=== PATIENT | male | born 1945 | race Caucasian/White ===

== ENCOUNTER 2017-09-14 13:49 | Outpatient (CLI) | payer MEDICARE ==
--- NOTE | 2017-09-14 16:16 | SJPRAD ---
TWO VIEW CHEST 09/14/17 COMPARISON: 10/11/16 CLINICAL HISTORY: Acute on chronic combined systolic/diastolic CHF. FINDINGS: There is accentuation of the cardiomediastinal silhouette due to patient rotation although this is g rossly stable. There is mild vascular prominence of each perihilar region. No new consolidation or e vidence of effusion. Chest is otherwise stable. IMPRESSION: Evidence of CHF with mild perihilar vascular edema. POS: [facility]
== END 2017-09-14 13:50 | disposition home or self-care (01) ==
LOC: MWLC RAD 13:49
PROVIDERS: ATTEND Internal Medicine Geriatric Medicine
DX: I50.43 Acute on chronic combined systolic (congestive) and diastolic (congestive) heart failure (principal); R60.0 Localized edema

== ENCOUNTER 2017-10-19 14:15 | Outpatient (CLI) | payer MEDICARE | END 2017-10-19 14:16 | disposition home or self-care (01) | LOC: CP 14:15 | PROVIDERS: ATTEND Internal Medicine Critical Care Medicine | DX: R09.02 Hypoxemia (principal) | CPT/HCPCS: 94060; 94727; 94729 ==

== ENCOUNTER 2018-03-08 11:45 | Inpatient (IN) | payer MEDICARE ==
[2018-03-08] MEDS ORDERED: methylPREDNISolone Sod Succ/PF 125 MG/2 ML VIAL ONE (12:28)
[2018-03-08] MEDS ORDERED: Magnesium Sulfate 2 GM/100 ML BAG ONE (12:28)
[2018-03-08] MEDS ORDERED: Water For Inject, Bacteriostat 30 ML ONE (12:29)
[2018-03-08 12:33] LABS: #Eosinphils 0.1 thou/uL (0.0-0.7); #Lymphocytes 1.5 thou/uL (1.20-3.40); #Monocytes 0.9 thou/uL (0.11-0.59); #Neutrophils 6.1 thou/uL (1.40-6.50); %Basophils 0.1 % (0.0-1.0); %Eosinophils 1.2 % (0.0-10.0); %Lymphocytes 17.1 % (21.0-51.0); %Monocytes 10.9 % (0.0-10.0); %Neutrophils 70.8 % (42.0-75.0); Hemoglobin 16.4 g/dL (14.0-18.0); Mean Corpuscular Hemoglobin 28.7 pg (27.0-31.0); Mean Corpuscular Volume 89.8 fl (80.0-94.0); Mean Platelet Volume 9.9 fL (7.4-10.4); Platelet Count 166 thou/uL (130-400); RBC Distribution Width 16.4 % (11.5-14.5); White Blood Cell (WBC) Count 8.5 thou/uL (4.8-10.8)
[2018-03-08 12:49] LABS: ALT (SGPT) 27 U/L (8-55); AST (SGOT) 30 U/L (5-34); Alkaline Phosphatase 127 U/L (40-150); Anion Gap 16 mmol/L (10-20); BUN (Urea Nitrogen) 49 mg/dL (8.4-25.7); Bilirubin, Total 2.2 mg/dL (0.2-1.2); CK (CPK) 63 U/L (30-200); Calc. Creatinine Clearance 0 mL/min (70-130); Calcium 9.4 mg/dL (7.8-10.44); Carbon Dioxide 24 mmol/L (23-31); Chloride 104 mmol/L (98-107); Estimated GFR-MDRD 56; Globulin 3.5 g/dL (2.4-3.5); Glucose 122 mg/dL (83-110); Potassium 3.9 mmol/L (3.5-5.1); Protein, Total 7.5 g/dL (5.8-8.1); Sodium 140 mmol/L (136-145)
[2018-03-08 12:54] LABS: CKMB 4.3 ng/mL (0-6.6); Troponin I 0.139 ng/mL (< 0.028)
--- NOTE | 2018-03-08 13:10 | RAD ---
PORTABLE CHEST ONE VIEW: Date: 03-08-18 Time: 11:44 a.m. History: Dyspnea. FINDINGS: Comparison made with exam of 01-03-18. Changes of median sternotomy are again seen. The heart size is stable. There is continued elevation o f the right hemidiaphragm. Chronic changes are again seen. No lobar consolidation, pneumothorax, or p leural effusions are seen. IMPRESSION: No radiographic evidence of acute cardiopulmonary process. POS: [facility]
[2018-03-08 14:15] LABS: INR-International Normal Ratio 1.7; PTT 37.6 SEC (22.9-36.1); Prothrombin Time 20.3 SEC (12.0-14.7)
[2018-03-08] MEDS ORDERED: Nitroglycerin 2% Ointment 1 INCH/1 GM Packet ONE (14:15)
[2018-03-08] MEDS ORDERED: Furosemide 100 MG/10 ML VIAL ONE (14:15)
[2018-03-08] MEDS ORDERED: cefTRIAXone\\ROCEPHIN 2 GM VIAL ONE (14:22)
[2018-03-08] MEDS ORDERED: Vancomycin HCl 1.5 GM in Sodium Chloride 0.9% 250 ML 300 ML IVPB SCH (14:30)
[2018-03-08] MEDS ORDERED: Acetaminophen 650 MG Suppository PR PRN (15:32)
[2018-03-08] MEDS ORDERED: Acetaminophen 325 MG TAB PO PRN (15:32)
[2018-03-08] MEDS ORDERED: Bisacodyl 5 MG TAB PO PRN (15:32)
[2018-03-08] MEDS ORDERED: Ondansetron HCl/PF 4 MG/2 ML Vial IVP PRN (15:32)
[2018-03-08] MEDS ORDERED: Pharmacy to MANAGE WARFARIN PO PRN (15:40)
[2018-03-08] MEDS ORDERED: cefTRIAXone\\ROCEPHIN 1 GM in Sodium Chloride 0.9% 100 ML IVPB SCH (15:45)
[2018-03-08] MEDS ORDERED: Vancomycin HCl 1 GM in Premix Bag 1 BAG IVPB SCH (15:45)
[2018-03-08 16:34] LABS: Troponin I 0.131 ng/mL (< 0.028)
[2018-03-08] MEDS ORDERED: Dextrose 5% in Water 1,000 ML IV PRN (16:46)
[2018-03-08] MEDS ORDERED: Dextrose 50% Abboject 50 ML SYRINGE SLOW IVP PRN (16:46)
[2018-03-08] MEDS: Warfarin Sodium 3 MG TAB PO SCH (17:07)
[2018-03-08] MEDS: HumaLOG 300 UNITS/3 ML VIAL SC PRN (17:13)
--- NOTE | 2018-03-08 17:17 | HP ---
PRIMARY CARE PROVIDER: Lisa Mota M.D. CHIEF COMPLAINT: Shortness of breath. HISTORY OF PRESENT ILLNESS: Mr. Roman Patel is a pleasant 72-year-old gentleman who was seen in the emergency room at [facility] on 03/08. He was hospitalized at [facility] in 09/2017 for acute on chronic diastolic congestive heart failure. He reports that following discharge, he continued to have on and off shortness of breath. He reports orthopnea. He reports paroxysmal nocturnal dyspnea. He reports that over the last few weeks, he has had worsening of his chronic shortness of breath. He also reports occasional chest discomfort, the last episode was 1 week ago. He denies any fevers or chills. He reports that he has been having worsening swelling in both lower extremities, with erythema. He reports bilateral lower extremity pain. He denies any fevers or chills. His mother a few weeks ago. He was busy with the arrangements and therefore could not see his primary care physician. Today, he went to see his primary care physician. He was advised to go to emergency room because of shortness of breath. REVIEW OF SYSTEMS: The following complete review of systems was negative, unless otherwise mentioned in the HPI or below: Constitutional: Weight loss or gain, ability to conduct usual activities. Skin: Rash, itching. Eyes: Double vision, pain. ENT/Mouth: Nose bleeding, neck stiffness, pain, tenderness. Cardiovascular: Palpitations, dyspnea on exertion, orthopnea. Respiratory: Shortness of breath, wheezing, cough, hemoptysis, fever or night sweats. Gastrointestinal: Poor appetite, abdominal pain, heartburn, nausea, vomiting, constipation, or diarrhea. Genitourinary: Urgency, frequency, dysuria, nocturia. Musculoskeletal: Pain, swelling. Neurologic/Psychiatric: Anxiety, depression. Allergy/Immunologic: Skin rash, bleeding tendency. PAST MEDICAL HISTORY: Significant for coronary artery disease, status post coronary artery bypass graft, paroxysmal atrial fibrillation on chronic anticoagulation, hypertension, diabetes mellitus type 2, chronic kidney disease stage 2, dyslipidemia, and probable chronic obstructive pulmonary disease. PAST SURGICAL HISTORY: Significant for coronary artery bypass graft x6 vessels and pilonidal cyst removal. SOCIAL HISTORY: He is an ex-smoker. He denies alcohol use or recreational drug use. FAMILY HISTORY: He reports that he has a family history of coronary artery disease, but is unable to recall specific family members. CODE STATUS: I discussed his code status. He is FULL CODE. His is the surrogate decision maker. ALLERGIES: No known drug allergies. CURRENT MEDICATIONS: Include warfarin 6 mg on Monday, Monday, , Monday, and Monday and 4 mg on Monday and Monday; aspirin 81 mg daily; Coenzyme Q10 400 mg daily; Livalo 4 mg daily; Lantus insulin 20 units subcutaneously daily; Anoro Ellipta 1 puff daily; glyburide 5 mg 2 times a day; bumetanide 2 mg daily; and potassium chloride 20 mEq 2 times a day. PHYSICAL EXAMINATION: GENERAL: On examination, Mr. Roman Patel is awake and alert, not in acute distress. VITAL SIGNS: Blood pressure is 134/58, pulse is 64, he is breathing at rate of 17 and saturating 93% on 3 liters of oxygen. He is afebrile. EYES: He has scleral icterus. No conjunctival pallor. ENT: Moist mucosal membranes. No oropharyngeal erythema or exudates. NECK: Supple, nontender, normal range of movement. Trachea is midline. He has jugular venous distention. RESPIRATORY: Accessory muscles of breathing are mildly active. Chest wall movements are symmetric bilaterally. LUNGS: Examination reveals diminished breath sounds at both bases. CARDIOVASCULAR: S1 and S2 are heard, regular. Peripheral pulses palpable. No carotid bruit, no pericardial rub. ABDOMEN: Soft, nontender, bowel sounds heard, no hepatomegaly, no splenomegaly. NEUROLOGIC: Cranial nerves II-XII intact. MUSCULOSKELETAL: Power is 5/5 in all 4 extremities. SKIN: He has bilateral lower extremity edema. He also has erythema of both feet. Temperature appears normal to touch. There is no tenderness. LYMPHATIC: No cervical lymphadenopathy. PSYCHIATRIC: Normal mood, normal affect, patient is oriented to person, place, and time. IMAGING DATA AND LABORATORY DATA: Mr. Roman Patel labs and investigations were reviewed. I reviewed his electrocardiogram, which has artifact, but shows sinus bradycardia with nonspecific intraventricular block, no ST changes to suggest an acute coronary syndrome. I also reviewed his chest x-ray, which does not show any pulmonary infiltrates. He has an unremarkable CBC, INR 1.7, normal electrolytes, elevated blood urea nitrogen of 49, normal creatinine 1.26 , elevated total bilirubin of 2.2, otherwise unremarkable liver function tests, indeterminate troponin I of 0.139 and elevated BNP of 870 ASSESSMENT AND PLAN: Mr. Roman Patel is a pleasant 72-year-old gentleman who was seen at [facility] on 03/08/2018. His problem list includes: 1. Shortness of breath: Most likely secondary to congestive heart failure exacerbation. Patient's last known 2D echocardiogram in 09/2017 showed left ventricular ejection fraction of 55%-60%. Mr. Roman Patel will be admitted to the hospital for presumed exacerbation of diastolic congestive heart failure and treated with diuretics. Cardiology Service will be consulted. He also follows [facility] as outpatient and Pulmonary Service will be consulted to rule out any pulmonary etiologies for his presentation. 2. Coronary artery disease: Monitor on telemetry, trend troponins. He denies any current chest pain. 3. Diabetes mellitus type 2: Continue home medications, start Accu-Cheks and insulin sliding scale. 4. Hypertension: Monitor vital signs, titrate antihypertensives as needed. 5. Atrial fibrillation: Continue anticoagulation. 6. Dyslipidemia: Continue statin. 7. Mr. Roman Sr., uses oxygen at home at 3.5 liters per minute. He reports that he does not use oxygen when he is walking around since it is difficult to ambulate with oxygen tank. This will probably need to be addressed prior to discharge. 8. Mr. Roman Sr., also appears to have evidence of cellulitis over both feet. He has been started on vancomycin and ceftriaxone, which I will continue. Await blood cultures. Many thanks for allowing me to participate in your patient's care. Please feel free to contact me with any questions or concerns. LEVEL OF RISK: High. LEVEL OF COMPLEXITY: High. MTDD
[2018-03-08] MEDS ORDERED: diphenhydrAMINE 50 MG/ML VIAL IVP SCH (17:45)
[2018-03-08] MEDS ORDERED: Famotidine 40 MG/4 ML VIAL SLOW IVP SCH (17:45)
[2018-03-08] MEDS ORDERED: methylPREDNISolone Sod Succ/PF 125 MG/2 ML VIAL IVP SCH (17:45)
--- NOTE | 2018-03-08 21:09 | CON ---
DATE OF CONSULTATION: 03/08/2018 REASON FOR CONSULTATION: Heart failure. PRIMARY SLASHER RUNNER: Mason Clancy MD HISTORY OF PRESENT ILLNESS: Mr. Owens is a pleasant 72-year-old white gentleman, who comes to the ospital for increased shortness of breath. He has a history of COPD and heart failure in the past, m ostly diastolic. He has chronic shortness of breath. He states that his shortness of breath has bee n getting worse, describing episodes of what appears to be orthopnea, cannot lay on his back without getting short-winded. This has been going on for the last week. He came in through the ER, noted th at both of his legs were swelling much more than normal with some pain and redness around them, so he decided to come in. He does not have any fevers or chills. Mother a few weeks ago, so he has been kind of ranging that and not taking care of himself. Otherwise, he did have a little bit of you st pain last week, but currently denies any chest pain, mostly he has shortness of breath. He was ad mitted to the hospital for possible heart failure exacerbation or COPD exacerbation. He was found to have possibly lower extremity cellulitis and he is being given antibiotics for this. On my evaluati on, I walked in, he just received the first part of the infusion of the vancomycin and he was very er ythematous in both hands, around the face, and around the feet. He was scratching all over. He feel s he is getting an allergic reaction, which I probably have to agree with him. Otherwise, he denies any chest pain, tightness, or pressure. His shortness of breath is already getting a little bit bett er. PAST MEDICAL HISTORY: 1. Coronary artery disease, status post bypass grafting x6. 2. Paroxysmal atrial fibrillation. 3. Chronic anticoagulation. 4. Hypertension. 5. Type 2 diabetes. 6. Chronic kidney disease, stage 2. 7. Hyperlipidemia. 8. Chronic obstructive pulmonary disease. PAST SURGICAL HISTORY: 1. CABG x6. 2. Pilonidal cyst removal. OUTPATIENT MEDICATIONS: 1. Warfarin. 2. Aspirin 81 a day. 3. Coenzyme Q10. 4. Livalo 4 mg a day. 5. Lantus. 6. Anoro Ellipta. 7. Glyburide. 8. Bumetanide. 9. Potassium chloride 10 mEq twice a day. ALLERGIES: No known drug allergies. SOCIAL HISTORY: Former smoker. No alcohol, tobacco, or drugs currently. ALLERGIES: No known drug allergies. FAMILY HISTORY: Noncontributory for this setting. REVIEW OF SYSTEMS: A 12-point review of systems was done and is all negative unless stated in the hi story of present illness. PHYSICAL EXAMINATION: VITAL SIGNS: Temperature 98.2, pulse 61, respiratory rate 18, satting 98% on 2 liters, blood pressur e 152/65. GENERAL: Awake, alert, oriented x3, in no distress. He is itching all over and is erythematous. HEENT: Normocephalic, atraumatic. NECK: Supple. LUNGS: Have distant breath sounds. CARDIOVASCULAR: S1, S2. No S3, S4. ABDOMEN: Soft. Positive bowel sounds. EXTREMITIES: 3+ edema with erythema down on the foot, worse in the right foot. SKIN: Warm around the right foot, worse and painful. LABORATORY DATA: Laboratory work was reviewed. CBC was reviewed. Normal white count. Coags were r eviewed and chemistry was reviewed. His INR is not therapeutic, is at 1.7. Troponin was 0.13, 0.13, 0.14, indeterminate range. GFR is 56. BNP was 870. EKG was reviewed. Chest x-ray was reviewed, showed no acute cardiopulmonary issues. ASSESSMENT AND PLAN: 1. Acute on chronic diastolic heart failure. He had most recent echocardiogram in 2016 that showed normal LV function. We will plan on repeating echocardiogram to make sure this is still the case. I agree with IV Lasix for now at current dose of 40 mg twice a day. 2. Possible chronic obstructive pulmonary disease exacerbation per primary team. 3. Lower extremity cellulitis: IV antibiotics per primary team. Might be developing an allergic re action to vancomycin. This also could just be a red man syndrome, which is mostly related to the spe ed of infusion of vancomycin rather than an actual allergic reaction. We will defer to primary team. He will be given a dose of Benadryl and famotidine right now to try to alleviate his itching. Thank you for letting us participate in the care of your patient. Dr. Clancy, his primary cardiolo gist, will follow up in the morning.
[2018-03-09 05:24] LABS: #Lymphocytes 0.5 thou/uL (1.20-3.40); #Monocytes 0.1 thou/uL (0.11-0.59); #Neutrophils 2.4 thou/uL (1.40-6.50); %Basophils 0.2 % (0.0-1.0); %Eosinophils 0.2 % (0.0-10.0); %Lymphocytes 17.6 % (21.0-51.0); %Monocytes 3.6 % (0.0-10.0); %Neutrophils 78.5 % (42.0-75.0); Hemoglobin 15.8 g/dL (14.0-18.0); Mean Corpuscular HGB CONC 31.4 g/dL (32.0-36.0); Mean Corpuscular Volume 89.2 fl (80.0-94.0); Mean Platelet Volume 10.3 fL (7.4-10.4); Platelet Count 154 thou/uL (130-400); RBC Distribution Width 16.5 % (11.5-14.5); Red Blood Cell (RBC) Count 5.64 mill/uL (4.70-6.10)
[2018-03-09 05:37] LABS: ALT (SGPT) 21 U/L (8-55); AST (SGOT) 23 U/L (5-34); Albumin 3.5 g/dL (3.4-4.8); Alkaline Phosphatase 105 U/L (40-150); Anion Gap 18 mmol/L (10-20); BUN (Urea Nitrogen) 44 mg/dL (8.4-25.7); Bilirubin, Direct 1.1 mg/dL (0.1-0.3); Bilirubin, Total 1.8 mg/dL (0.2-1.2); Calc. Creatinine Clearance 85 mL/min (70-130); Carbon Dioxide 15 mmol/L (23-31); Chloride 108 mmol/L (98-107); Estimated GFR-MDRD 57; Glucose 298 mg/dL (83-110); Protein, Total 6.6 g/dL (5.8-8.1); Sodium 137 mmol/L (136-145)
[2018-03-09] MEDS: HumaLOG 300 UNITS/3 ML VIAL SC PRN ×3 (05:47→21:24)
[2018-03-09] MEDS ORDERED: Furosemide 40 MG/4 ML VIAL SLOW IVP SCH (06:00)
[2018-03-09] MEDS ORDERED: Enoxaparin Sodium 40 MG/0.4 ML SYRINGE SC SCH (09:00)
--- NOTE | 2018-03-09 09:53 | CON ---
DATE OF SERVICE: 03/09/2018 CONSULTING PHYSICIAN: Hospitalist group. REASON FOR CONSULTATION: Shortness of breath. HISTORY OF PRESENT ILLNESS: The patient is a 72-year-old male who came to the hospital yesterday wit h increasing shortness of breath over several weeks. He has had an occasional chest pain. I have se en him in the office in the past regarding COPD and he has very mild COPD by spirometry. He is curre ntly using inhaler therapy at home with Anoro Ellipta 1 puff daily. He has had increasing lower extr emity edema. He has had shortness of breath with exertion. He has also had difficulty lying down. PAST MEDICAL HISTORY: 1. Mild chronic obstructive pulmonary disease. 2. Coronary artery disease. 3. Paroxysmal atrial fibrillation. 4. Hypertension. 5. Diabetes mellitus type 2. 6. Chronic kidney disease stage 2. 7. Hyperlipidemia. PAST SURGICAL HISTORY: Coronary bypass grafting surgery and pilonidal cyst removal. ALLERGIES: None. SOCIAL HISTORY: Former smoker, does not use alcohol or illicit drugs. FAMILY MEDICAL HISTORY: Remarkable for coronary disease. ALLERGIES: None. MEDICATIONS PRIOR TO ADMISSION: Warfarin, Anoro Ellipta, Livalo, Lantus insulin, glyburide, potassiu m. REVIEW OF SYSTEMS: Twelve point review of systems otherwise negative. PHYSICAL EXAMINATION: VITAL SIGNS: Temperature 97.4, pulse 58, respirations 20, O2 sat 95% on 4 liters, blood pressure 134 /62. HEENT: Unremarkable. NECK: Without adenopathy or JVD. LUNGS: He has crackles in both bases. No wheezing. CARDIOVASCULAR: S1, S2 regular. ABDOMEN: Soft, nontender. EXTREMITIES: 4+ edema from his knees downward. LABORATORY DATA: White blood cell count 3, hematocrit 50, platelet count 154. INR 1.7. Procalciton in level is 0.12. Sodium 137, potassium 4, chloride 108, CO2 15, BUN 44, creatinine 1.2, glucose 298 . BNP level was elevated. ASSESSMENT: 1. Acute on chronic diastolic heart failure. 2. Very doubtful pneumonia given low procalcitonin level. 3. Underlying mild chronic obstructive pulmonary disease. 4. Doubt that this is lower extremity cellulitis. RECOMMENDATIONS: I would focus on diuresing the patient. I would consider stopping the antibiotics. The steroids can be eliminated and he can be treated strictly with bronchodilators. Thank you for the referral. We will follow.
[2018-03-09 14:23] VITALS: BMI 33.0
[2018-03-09] MEDS ORDERED: cefTRIAXone\\ROCEPHIN 1 GM, Syringe 0.4 ML in Sterile Water 9.6 ML SLOW IVP SCH (15:00)
[2018-03-09] MEDS: Bumetanide 1 MG/4 ML VIAL IVP SCH (15:41)
--- NOTE | 2018-03-09 16:58 | PDOC.PN ---
- Subjective Encounter Start Date: 03/09/18 Encounter Start Time: 08:00 Pt seen for followup re: CHF exacerbation. Reports orthopnea, dyspnea on exertion. - Objective Resuscitation Status: Resuscitation Status FULL:Full Resuscitation MAR Reviewed: Yes Vital Signs & Weight: Vital Signs (12 hours) Temp Pulse Resp BP Pulse Ox 03/09/18 15:48 60 20 118/55 L 92 L 03/09/18 14:22 89 16 03/09/18 11:56 97.4 F L 60 20 111/57 L 93 L 03/09/18 07:39 97.4 F L 58 L 20 95 Weight Admit Weight 250 lb Weight 250 lb I&O: 03/08/18 03/09/18 03/10/18 06:59 06:59 06:59 Intake Total 745 Output Total 1950 Balance -1205 Result Diagrams: 03/09/18 04:30 03/09/18 04:30 Additional Labs: Accuchecks 03/09/18 03/09/18 03/09/18 15:36 11:04 05:41 POC Glucose 380 H 288 H 248 H 03/08/18 03/08/18 20:48 16:53 POC Glucose 209 H 176 H EKG Reviewed by me: Yes (Tele: NSR) Phys Exam - Physical Examination Obese HEENT: moist MMs, sclera anicteric, oral pharynx no lesions, 2+ tonsils Neck: no nodes, supple, full ROM JVD Respiratory: no wheezing, no rhonchi Rajesh crackles Cardiovascular: RRR, no rub Gastrointestinal: soft, non-tender, positive bowel sounds distention Musculoskeletal: edema present Neurological: moves all 4 limbs Psychiatric: normal affect, A&O x 3 Dx/Plan (1) Acute on chronic diastolic CHF (congestive heart failure) Code(s): I50.33 - ACUTE ON CHRONIC DIASTOLIC (CONGESTIVE) HEART FAILURE Status : Acute Comment: Change furosemide to bumetanide, pt reports resistance to furosemide in the past (2) CAD (coronary artery disease) Code(s): I25.10 - ATHSCL HEART DISEASE OF [place] CORONARY ARTERY W/O ANG PCTRS Status: Chronic Comment: stable (3) Atrial fibrillation Code(s): I48.91 - UNSPECIFIED ATRIAL FIBRILLATION Status: Chronic Comment: Pt is in sinus rhythm, warfarin dosing being managed by pharmacy (4) DM2 (diabetes mellitus, type 2) Status: Chronic Comment: continue accuchecks, insulin sliding scale (5) HTN (hypertension) Code(s): I10 - ESSENTIAL (PRIMARY) HYPERTENSION Status: Chronic Comment: Monitor vital signs, titrate antihypertensives as needed (6) Dyslipidemia Code(s): E78.5 - HYPERLIPIDEMIA, UNSPECIFIED Status: Chronic Comment: continue statin (7) Cellulitis Code(s): L03.90 - CELLULITIS, UNSPECIFIED Status: Ruled-out Comment: ruled out, discontinue antibiotics - Plan plan discussed w/ family, out of bed/ambulate * . Review of Systems - Review of Systems Constitutional: negative: fever, chills, sweats, weakness, malaise Respiratory: Hemoptysis. negative: Cough, Shortness of Breath, SOB with Excertion, Pleuritic Pain, Wheezing Cardiovascular: orthopnea, paroxysmal nocturnal dyspnea. negative: chest pain, palpitations, edema, light headedness Gastrointestinal: negative: Nausea, Vomiting, Abdominal Pain, Diarrhea, Constipation, Melena, Hematochezia Skin: Rash. negative: Lesions, Jovani, Bruising Neurological: negative: Weakness, Numbness, Incoordination, Change in Speech, Confusion, Seizures - Medications/Allergies Allergies/Adverse Reactions: Allergies Allergy/AdvReac Type Severity Reaction Status Date / Time No Known Allergies Allergy Verified 10/11/16 16:50 Medications: Current Medications Acetaminophen (Tylenol) 650 mg PO Q4H PRN PRN Reason: Headache/Fever or Pain Acetaminophen (Tylenol) 650 mg OR Q4H PRN PRN Reason: Headache/Fever or Pain Albuterol/Ipratropium (Duoneb) 3 ml NEB [id number] [facility] Last Admin: 03/09/18 14:22 Dose: 3 ml Bisacodyl (Dulcolax) 10 mg PO DAILYPRN PRN PRN Reason: Constipation Bumetanide (Bumex) 1 mg IVP 0600,1400 [facility] Last Admin: 03/09/18 15:41 Dose: 1 mg Dextrose/Water (Dextrose 50%) 25 gm SLOW IVP PRN PRN PRN Reason: Hypoglycemia Glucagon (Glucagon) 1 mg IM PRN PRN PRN Reason: Hypoglycemia Dextrose/Water (D5w) 1,000 mls @ 0 mls/hr IV .Q0M PRN; As Directed PRN Reason: Hypoglycemia Insulin Human Lispro (Humalog) 0 units SC .MILD SLIDING SCALE PRN PRN Reason: Mild Correctional Scale Last Admin: 03/09/18 05:47 Dose: 3 unit Miscellaneous Medication (Pharmacy To Dose) 1 each IVPB PRN PRN PRN Reason: Pharmacy to dose Miscellaneous Medication (Pharmacy To Dose) 1 each PO PRN PRN PRN Reason: . Mometasone Furoate/Formoterol Fumar (Dulera 200 Mcg/5 Mcg Inhaler) 2 puff INH BID-RT [facility] Ondansetron HCl (Zofran) 4 mg IVP Q6H PRN PRN Reason: Nausea/Vomiting Sodium Chloride (Flush - Normal Saline) 10 ml IVF Q12HR [facility] Sodium Chloride (Flush - Normal Saline) 10 ml IVF PRN PRN PRN Reason: Saline Flush Warfarin Sodium (Coumadin) 4 mg PO TuSa@1700 [place] Warfarin Sodium (Coumadin) 6 mg PO SuMoWeThFr@1700 [facility] Last Admin: 03/08/18 17:07 Dose: 6 mg
[2018-03-09] MEDS: Warfarin Sodium 3 MG TAB PO SCH (17:21)
[2018-03-09] MEDS: Mometasone/Formoterol 120 PUFF INHALER INH SCH (19:39)
[2018-03-10 05:09] LABS: #Lymphocytes 0.8 thou/uL (1.20-3.40); #Neutrophils 7.8 thou/uL (1.40-6.50); %Basophils 0.3 % (0.0-1.0); %Eosinophils 0.1 % (0.0-10.0); %Lymphocytes 8.6 % (21.0-51.0); %Monocytes 10.5 % (0.0-10.0); %Neutrophils 80.5 % (42.0-75.0); Hemoglobin 14.7 g/dL (14.0-18.0); Mean Corpuscular HGB CONC 32.5 g/dL (32.0-36.0); Mean Corpuscular Volume 89.2 fl (80.0-94.0); Mean Platelet Volume 9.7 fL (7.4-10.4); Platelet Count 149 thou/uL (130-400); RBC Distribution Width 16.4 % (11.5-14.5); Red Blood Cell (RBC) Count 5.07 mill/uL (4.70-6.10); White Blood Cell (WBC) Count 9.7 thou/uL (4.8-10.8)
[2018-03-10] MEDS: Bumetanide 1 MG/4 ML VIAL IVP SCH ×2 (05:30→15:01)
[2018-03-10 05:42] LABS: Anion Gap 14 mmol/L (10-20); BUN (Urea Nitrogen) 47 mg/dL (8.4-25.7); Calc. Creatinine Clearance 89 mL/min (70-130); Carbon Dioxide 21 mmol/L (23-31); Chloride 107 mmol/L (98-107); Estimated GFR-MDRD 60; Glucose 232 mg/dL (83-110); Potassium 3.5 mmol/L (3.5-5.1); Sodium 138 mmol/L (136-145)
[2018-03-10] MEDS: Mometasone/Formoterol 120 PUFF INHALER INH SCH ×2 (07:37→19:04)
--- NOTE | 2018-03-10 14:07 | PRG ---
DATE OF SERVICE: 03/10/2018 SERVICE: Pulmonary Medicine. INTERVAL HISTORY: The patient is doing fine from a respiratory standpoint. He is making very slow p rogress. His lower extremity swelling is just as bad as it was, but his abdominal swelling is much i mproved. He denies any current chest pain or shortness of breath. PHYSICAL EXAMINATION: VITAL SIGNS: Afebrile, pulse 89, blood pressure 105/52, respirations 18, saturation 94% on room air. GENERAL: The patient is awake, alert, no apparent distress. LUNGS: Decent air entry. Minimal dependent crackles are present, but there does not seem to be any prolonged expiratory phase or wheezing. HEART: Normal rate and regular. ABDOMEN: Soft and nondistended. Bowel sounds positive. MUSCULOSKELETAL: No cyanosis or clubbing. He has got chronic stasis changes of both bilateral lower extremities with erythema. He also has 2-3+ pitting throughout, but it is primarily limited below t he knee. LABORATORY DATA: WBC 9.7, hemoglobin 14.7, and platelets 149,000. INR 1.7. Creatinine 1.19 and rou ghly stable. BUN is gently up trending to 47, bicarbonate 21 and improving. Basic metabolic profile is essentially unremarkable otherwise. Blood cultures x2 are negative. IMAGING: Echocardiogram was a poor study. The right atrium and right ventricular cavity are enlarge d. Left ventricular size is normal. There is diastolic dysfunction present with mild mitral regurgi tation. Left atrium is moderately dilated. ASSESSMENT: 1. Acute hypoxic respiratory failure. 2. Acute on chronic diastolic heart failure. 3. Pulmonary hypertension, possibly multifactorial. 4. Chronic obstructive pulmonary disease without acute exacerbation. PLAN: We will continue diuresing the patient. At this point, after 2 days, I do not see any evidenc e of an infectious thing. As such, antibiotics and steroids will be discontinued. Pulmonary and Cri tical Care will continue to follow along.
--- NOTE | 2018-03-10 14:14 | PDOC.PN ---
- Subjective Encounter Start Date: 03/10/18 Encounter Start Time: 09:40 Pt seen for followup re: CHF exacerbation. Says he urinated a lot yesterday, but not today so far. No fevers or chills. - Objective Resuscitation Status: Resuscitation Status FULL:Full Resuscitation MAR Reviewed: Yes Vital Signs & Weight: Vital Signs (12 hours) Temp Pulse Resp BP BP Pulse Ox 03/10/18 13:23 66 18 03/10/18 11:54 98.4 F 59 L 18 118/58 L 93 L 03/10/18 08:52 97.6 F 59 L 18 105/52 L 94 L 03/10/18 07:37 68 20 03/10/18 07:29 93 L 03/10/18 07:27 68 20 03/10/18 04:00 98.4 F 60 18 149/72 H 93 L Weight Admit Weight 250 lb Weight 249 lb 14.4 oz I&O: 03/09/18 03/10/18 03/11/18 06:59 06:59 06:59 Intake Total 745 360 Output Total 1950 520 Balance -1205 -160 Result Diagrams: 03/10/18 04:40 03/10/18 04:40 Additional Labs: Accuchecks 03/10/18 03/10/18 03/09/18 10:57 05:39 20:23 POC Glucose 195 H 209 H 334 H 03/09/18 03/09/18 03/09/18 17:47 15:36 11:04 POC Glucose 394 H 380 H 288 H 03/09/18 05:41 POC Glucose 248 H EKG Reviewed by me: Yes (Tele: NSR) Phys Exam - Physical Examination Obesity HEENT: PERRLA, moist MMs, oral pharynx no lesions, 2+ tonsils Neck: supple Respiratory: no wheezing, no rhonchi Bibasal crackles Cardiovascular: RRR, no rub Gastrointestinal: soft, non-tender, no distention, positive bowel sounds Musculoskeletal: edema present Neurological: moves all 4 limbs Psychiatric: normal affect, A&O x 3 Dx/Plan (1) Acute on chronic diastolic CHF (congestive heart failure) Code(s): I50.33 - ACUTE ON CHRONIC DIASTOLIC (CONGESTIVE) HEART FAILURE Status : Acute Comment: Continue IV bumetanide (2) CAD (coronary artery disease) Code(s): I25.10 - ATHSCL HEART DISEASE OF [place] CORONARY ARTERY W/O ANG PCTRS Status: Chronic Comment: stable (3) Atrial fibrillation Code(s): I48.91 - UNSPECIFIED ATRIAL FIBRILLATION Status: Chronic Comment: warfarin dosing being managed by pharmacy (4) DM2 (diabetes mellitus, type 2) Status: Chronic Comment: On accuchecks, insulin sliding scale (5) HTN (hypertension) Code(s): I10 - ESSENTIAL (PRIMARY) HYPERTENSION Status: Chronic Comment: titrate antihypertensives as needed (6) Dyslipidemia Code(s): E78.5 - HYPERLIPIDEMIA, UNSPECIFIED Status: Chronic Comment: continue statin - Plan * . Review of Systems - Review of Systems Constitutional: negative: fever, chills, sweats, weakness, malaise Respiratory: SOB with Excertion. negative: Cough, Shortness of Breath, Pleuritic Pain, Wheezing Cardiovascular: orthopnea, edema. negative: chest pain, palpitations, paroxysmal nocturnal dyspnea, light headedness Gastrointestinal: negative: Nausea, Vomiting, Abdominal Pain, Diarrhea, Constipation, Melena, Hematochezia Genitourinary: negative: Dysuria, Frequency, Incontinence, Hematuria, Retention Neurological: negative: Weakness, Numbness, Incoordination, Change in Speech, Confusion, Seizures - Medications/Allergies Allergies/Adverse Reactions: Allergies Allergy/AdvReac Type Severity Reaction Status Date / Time vancomycin Allergy Verified 03/09/18 19:25 Medications: Current Medications Acetaminophen (Tylenol) 650 mg PO Q4H PRN PRN Reason: Headache/Fever or Pain Acetaminophen (Tylenol) 650 mg [place] Q4H PRN PRN Reason: Headache/Fever or Pain Albuterol/Ipratropium (Duoneb) 3 ml NEB [id number] [facility] Last Admin: 03/10/18 13:23 Dose: 3 ml Bisacodyl (Dulcolax) 10 mg PO DAILYPRN PRN PRN Reason: Constipation Bumetanide (Bumex) 1 mg IVP 0600,1400 [facility] Last Admin: 03/10/18 05:30 Dose: 1 mg Dextrose/Water (Dextrose 50%) 25 gm SLOW IVP PRN PRN PRN Reason: Hypoglycemia Glucagon (Glucagon) 1 mg IM PRN PRN PRN Reason: Hypoglycemia Dextrose/Water (D5w) 1,000 mls @ 0 mls/hr IV .Q0M PRN; As Directed PRN Reason: Hypoglycemia Insulin Human Lispro (Humalog) 0 units SC .MILD SLIDING SCALE PRN PRN Reason: Mild Correctional Scale Last Admin: 03/09/18 21:24 Dose: 4 unit Miscellaneous Medication (Pharmacy To Dose) 1 each PO PRN PRN PRN Reason: . Mometasone Furoate/Formoterol Fumar (Dulera 200 Mcg/5 Mcg Inhaler) 2 puff INH BID-RT [facility] Last Admin: 03/10/18 07:37 Dose: 2 puff Ondansetron HCl (Zofran) 4 mg IVP Q6H PRN PRN Reason: Nausea/Vomiting Sodium Chloride (Flush - Normal Saline) 10 ml IVF Q12HR [facility] Last Admin: 03/10/18 09:04 Dose: 10 ml Sodium Chloride (Flush - Normal Saline) 10 ml IVF PRN PRN PRN Reason: Saline Flush Warfarin Sodium (Coumadin) 4 mg PO TuSa@1700 [facility] Warfarin Sodium (Coumadin) 6 mg PO SuMoWeThFr@1700 [facility] Last Admin: 03/09/18 17:21 Dose: 6 mg
[2018-03-10 14:43] LABS: Hemoglobin 15.8 g/dL (14.0-18.0); Platelet Count 147 thou/uL (130-400)
[2018-03-10] MEDS ORDERED: Warfarin Sodium 2 MG TAB PO SCH (17:00)
[2018-03-10] MEDS: HumaLOG 300 UNITS/3 ML VIAL SC PRN (17:17)
[2018-03-11] MEDS: Bumetanide 1 MG/4 ML VIAL IVP SCH ×2 (05:44→15:23)
[2018-03-11 05:46] LABS: #Basophils 0.1 thou/uL (0.0-0.2); #Eosinphils 0.1 thou/uL (0.0-0.7); #Lymphocytes 1.5 thou/uL (1.20-3.40); #Monocytes 1.1 thou/uL (0.11-0.59); #Neutrophils 6.1 thou/uL (1.40-6.50); %Basophils 0.8 % (0.0-1.0); %Eosinophils 1.6 % (0.0-10.0); %Lymphocytes 16.5 % (21.0-51.0); %Neutrophils 69.1 % (42.0-75.0); Hemoglobin 14.8 g/dL (14.0-18.0); Mean Corpuscular HGB CONC 32.3 g/dL (32.0-36.0); Mean Corpuscular Hemoglobin 28.9 pg (27.0-31.0); Mean Corpuscular Volume 89.6 fl (80.0-94.0); Mean Platelet Volume 9.8 fL (7.4-10.4); Platelet Count 147 thou/uL (130-400); RBC Distribution Width 16.5 % (11.5-14.5); Red Blood Cell (RBC) Count 5.13 mill/uL (4.70-6.10); White Blood Cell (WBC) Count 8.9 thou/uL (4.8-10.8)
[2018-03-11 05:52] LABS: INR-International Normal Ratio 2.6; Prothrombin Time 28.8 SEC (12.0-14.7)
[2018-03-11 06:08] LABS: Anion Gap 15 mmol/L (10-20); BUN (Urea Nitrogen) 41 mg/dL (8.4-25.7); Calc. Creatinine Clearance 101 mL/min (70-130); Carbon Dioxide 22 mmol/L (23-31); Chloride 107 mmol/L (98-107); Estimated GFR-MDRD 70; Glucose 162 mg/dL (83-110); Potassium 3.4 mmol/L (3.5-5.1); Sodium 141 mmol/L (136-145)
[2018-03-11] MEDS: Mometasone/Formoterol 120 PUFF INHALER INH SCH ×2 (09:50→19:24)
--- NOTE | 2018-03-11 13:37 | PDOC.PN ---
- Subjective Encounter Start Date: 03/11/18 Encounter Start Time: 08:20 Pt seen for followup re: CHF exacerbation. Says he has not noticed much difference in terms of symptoms. - Objective Resuscitation Status: Resuscitation Status FULL:Full Resuscitation MAR Reviewed: Yes Vital Signs & Weight: Vital Signs (12 hours) Temp Pulse Resp BP BP Pulse Ox 03/11/18 12:09 97.4 F L 104 H 18 119/69 96 03/11/18 09:50 89 12 03/11/18 09:42 94 L 03/11/18 09:37 81 12 03/11/18 08:21 97.3 F L 89 12 92/56 L 93 L 03/11/18 04:00 98.1 F 68 20 123/58 L 95 Weight Admit Weight 250 lb Weight 248 lb I&O: 03/10/18 03/11/18 03/12/18 06:59 06:59 06:59 Intake Total 360 1680 Output Total 520 2600 Balance -160 -920 Result Diagrams: 03/11/18 04:36 03/11/18 04:36 Additional Labs: Accuchecks 03/11/18 03/11/18 03/10/18 10:53 05:22 21:10 POC Glucose 140 H 161 H 168 H 03/10/18 16:16 POC Glucose 262 H EKG Reviewed by me: Yes (Tele: cipriano andrade) Phys Exam - Physical Examination Obesity HEENT: moist MMs, sclera anicteric, oral pharynx no lesions, 2+ tonsils Neck: supple Respiratory: no wheezing, no rhonchi Bibasal crackles Cardiovascular: no rub, irregular S1, S2, irreg Gastrointestinal: soft, non-tender, no distention, positive bowel sounds Musculoskeletal: edema present Neurological: moves all 4 limbs Psychiatric: normal affect Dx/Plan (1) Acute on chronic diastolic CHF (congestive heart failure) Code(s): I50.33 - ACUTE ON CHRONIC DIASTOLIC (CONGESTIVE) HEART FAILURE Status : Acute Comment: Increase Bumex dose to 2 mg in AM and 1 mg in PM (2) CAD (coronary artery disease) Code(s): I25.10 - ATHSCL HEART DISEASE OF [place] CORONARY ARTERY W/O ANG PCTRS Status: Chronic Comment: stable (3) Atrial fibrillation Code(s): I48.91 - UNSPECIFIED ATRIAL FIBRILLATION Status: Chronic Comment: INR is therapeutic, warfarin dosing by pharmacy (4) DM2 (diabetes mellitus, type 2) Status: Chronic Comment: continue accuchecks, insulin sliding scale (5) HTN (hypertension) Code(s): I10 - ESSENTIAL (PRIMARY) HYPERTENSION Status: Chronic Comment: controlled (6) Dyslipidemia Code(s): E78.5 - HYPERLIPIDEMIA, UNSPECIFIED Status: Chronic Comment: continue statin - Plan * . Review of Systems - Review of Systems Constitutional: negative: fever, chills, sweats, weakness, malaise Respiratory: Cough, Dry, SOB with Excertion. negative: Shortness of Breath, Pleuritic Pain, Sputum, Wheezing Cardiovascular: negative: chest pain, palpitations, orthopnea, paroxysmal nocturnal dyspnea, edema, light headedness Genitourinary: negative: Dysuria, Frequency, Incontinence, Hematuria, Retention Skin: negative: Rash, Lesions, Jovani, Bruising - Medications/Allergies Allergies/Adverse Reactions: Allergies Allergy/AdvReac Type Severity Reaction Status Date / Time vancomycin Allergy Verified 03/09/18 19:25 Medications: Current Medications Acetaminophen (Tylenol) 650 mg PO Q4H PRN PRN Reason: Headache/Fever or Pain Acetaminophen (Tylenol) 650 mg [place] Q4H PRN PRN Reason: Headache/Fever or Pain Albuterol/Ipratropium (Duoneb) 3 ml NEB [id number] Last Admin: 03/11/18 09:37 Dose: 3 ml Bisacodyl (Dulcolax) 10 mg PO DAILYPRN PRN PRN Reason: Constipation Bumetanide (Bumex) 1 mg IVP 0600,1400 [facility] Stop: 03/11/18 23:59 Last Admin: 03/11/18 05:44 Dose: 1 mg Bumetanide (Bumex) 1 mg IVP NOW [facility] Stop: 03/11/18 15:45 Bumetanide (Bumex) 2 mg IVP 0600 [facility] Bumetanide (Bumex) 1 mg IVP 1400 [facility] Dextrose/Water (Dextrose 50%) 25 gm SLOW IVP PRN PRN PRN Reason: Hypoglycemia Glucagon (Glucagon) 1 mg IM PRN PRN PRN Reason: Hypoglycemia Dextrose/Water (D5w) 1,000 mls @ 0 mls/hr IV .Q0M PRN; As Directed PRN Reason: Hypoglycemia Insulin Human Lispro (Humalog) 0 units SC .MILD SLIDING SCALE PRN PRN Reason: Mild Correctional Scale Last Admin: 03/10/18 17:17 Dose: 4 unit Miscellaneous Medication (Pharmacy To Dose) 1 each PO PRN PRN PRN Reason: . Mometasone Furoate/Formoterol Fumar (Dulera 200 Mcg/5 Mcg Inhaler) 2 puff INH BID-RT [facility] Last Admin: 03/11/18 09:50 Dose: 2 puff Ondansetron HCl (Zofran) 4 mg IVP Q6H PRN PRN Reason: Nausea/Vomiting Sodium Chloride (Flush - Normal Saline) 10 ml IVF Q12HR [facility] Last Admin: 03/11/18 05:43 Dose: 10 ml Sodium Chloride (Flush - Normal Saline) 10 ml IVF PRN PRN PRN Reason: Saline Flush Warfarin Sodium (Coumadin) 4 mg PO TuSa@1700 [facility] Last Admin: 03/10/18 17:13 Dose: 4 mg Warfarin Sodium (Coumadin) 6 mg PO SuMoWeThFr@1700 [facility] Last Admin: 03/09/18 17:21 Dose: 6 mg
[2018-03-11] MEDS ORDERED: Bumetanide 1 MG/4 ML VIAL IVP SCH (13:45)
[2018-03-11] MEDS: Warfarin Sodium 3 MG TAB PO SCH (17:25)
[2018-03-11] MEDS: Potassium Chloride 20 MEQ TAB PO SCH ×2 (20:28→23:49)
[2018-03-11] MEDS ORDERED: Potassium Chloride 20 MEQ TAB PO SCH (23:30)
[2018-03-12 05:05] LABS: INR-International Normal Ratio 2.5
[2018-03-12] MEDS: Mometasone/Formoterol 120 PUFF INHALER INH SCH ×2 (07:53→19:26)
[2018-03-12] MEDS: Bumetanide 1 MG/4 ML VIAL IVP SCH (08:46)
[2018-03-12] MEDS: HumaLOG 300 UNITS/3 ML VIAL SC PRN ×2 (08:47→17:17)
--- NOTE | 2018-03-12 09:15 | PRG ---
DATE OF SERVICE: 03/12/2018 He still complains of leg swelling. PHYSICAL EXAMINATION: VITAL SIGNS: Temperature 97.3, pulse 66, respirations 18, O2 sat 94%, 24 intake 1680, output 2690. HEENT: Unremarkable. NECK: No JVD. LUNGS: Clear without wheezing or rhonchi. CARDIAC: S1 and S2 regular. ABDOMEN: Soft. MUSCULOSKELETAL: 1+ leg edema. ASSESSMENT: 1. Diastolic congestive heart failure. 2. Underlying chronic obstructive pulmonary disease. PLAN: 1. Continue gentle diuresis as you are doing. 2. Would expect he should be able to go home in a couple of days.
[2018-03-12 10:05] LABS: #Eosinphils 0.1 thou/uL (0.0-0.7); #Lymphocytes 1.4 thou/uL (1.20-3.40); #Monocytes 1.1 thou/uL (0.11-0.59); #Neutrophils 5.6 thou/uL (1.40-6.50); %Basophils 0.5 % (0.0-1.0); %Eosinophils 1.1 % (0.0-10.0); %Lymphocytes 16.6 % (21.0-51.0); %Monocytes 13.8 % (0.0-10.0); %Neutrophils 68.1 % (42.0-75.0); Hemoglobin 15.4 g/dL (14.0-18.0); Mean Corpuscular HGB CONC 32.9 g/dL (32.0-36.0); Mean Corpuscular Hemoglobin 29.6 pg (27.0-31.0); Mean Corpuscular Volume 89.9 fl (80.0-94.0); Mean Platelet Volume 9.5 fL (7.4-10.4); Platelet Count 140 thou/uL (130-400); RBC Distribution Width 16.5 % (11.5-14.5); Red Blood Cell (RBC) Count 5.23 mill/uL (4.70-6.10); White Blood Cell (WBC) Count 8.3 thou/uL (4.8-10.8)
[2018-03-12 10:23] LABS: Anion Gap 13 mmol/L (10-20); BUN (Urea Nitrogen) 42 mg/dL (8.4-25.7); Calc. Creatinine Clearance 84 mL/min (70-130); Calcium 9.3 mg/dL (7.8-10.44); Carbon Dioxide 27 mmol/L (23-31); Chloride 106 mmol/L (98-107); Estimated GFR-MDRD 57; Glucose 217 mg/dL (83-110); Potassium 3.9 mmol/L (3.5-5.1); Sodium 142 mmol/L (136-145)
[2018-03-12] MEDS ORDERED: Bumetanide 1 MG/4 ML VIAL IVP SCH (14:00)
--- NOTE | 2018-03-12 14:56 | PDOC.PN ---
- Subjective Encounter Start Date: 03/12/18 Encounter Start Time: 07:00 Pt seen for followup re: CHF exacerbation. Denies shortness of breath, fevers or chills. - Objective Resuscitation Status: Resuscitation Status FULL:Full Resuscitation MAR Reviewed: Yes Vital Signs & Weight: Vital Signs (12 hours) Temp Pulse Resp BP BP Pulse Ox 03/12/18 13:35 70 16 03/12/18 11:56 96.9 F L 66 18 141/63 H 94 L 03/12/18 08:00 97.3 F L 66 18 94 L 03/12/18 07:57 93 L 03/12/18 07:55 97.3 F L 66 18 132/86 94 L 03/12/18 07:53 61 18 93 L 03/12/18 04:00 98.6 F 62 20 129/61 93 L Weight Admit Weight 250 lb Weight 246 lb 12.8 oz I&O: 03/11/18 03/12/18 03/13/18 06:59 06:59 06:59 Intake Total 1680 600 Output Total 2600 675 Balance -920 -75 Result Diagrams: 03/12/18 09:44 03/12/18 09:44 Additional Labs: Accuchecks 03/12/18 03/12/18 03/11/18 11:28 06:02 20:25 POC Glucose 186 H 200 H 204 H 03/11/18 16:55 POC Glucose 195 H EKG Reviewed by me: Yes (Tele: NSR) Phys Exam - Physical Examination Obese HEENT: moist MMs, oral pharynx no lesions Neck: supple Rajesh crackles Cardiovascular: RRR Gastrointestinal: soft, non-tender Musculoskeletal: edema present Neurological: moves all 4 limbs Psychiatric: normal affect Dx/Plan (1) Acute on chronic diastolic CHF (congestive heart failure) Code(s): I50.33 - ACUTE ON CHRONIC DIASTOLIC (CONGESTIVE) HEART FAILURE Status : Acute Comment: Increased Bumex dose yesterday, pt diuresing well. (2) CAD (coronary artery disease) Code(s): I25.10 - ATHSCL HEART DISEASE OF [place] CORONARY ARTERY W/O ANG PCTRS Status: Chronic Comment: stable (3) Atrial fibrillation Code(s): I48.91 - UNSPECIFIED ATRIAL FIBRILLATION Status: Chronic Comment: INR is therapeutic (4) DM2 (diabetes mellitus, type 2) Status: Chronic Comment: On accuchecks, insulin sliding scale (5) HTN (hypertension) Code(s): I10 - ESSENTIAL (PRIMARY) HYPERTENSION Status: Chronic Comment: controlled (6) Dyslipidemia Code(s): E78.5 - HYPERLIPIDEMIA, UNSPECIFIED Status: Chronic Comment: On statin - Plan out of bed/ambulate * . Likely home 24-48 hrs Review of Systems - Review of Systems Constitutional: negative: fever, chills, sweats, weakness, malaise Respiratory: negative: Cough, Shortness of Breath, SOB with Excertion, Pleuritic Pain, Wheezing Cardiovascular: negative: chest pain, palpitations, orthopnea, paroxysmal nocturnal dyspnea, edema, light headedness - Medications/Allergies Allergies/Adverse Reactions: Allergies Allergy/AdvReac Type Severity Reaction Status Date / Time vancomycin Allergy Verified 03/09/18 19:25 Medications: Current Medications Acetaminophen (Tylenol) 650 mg PO Q4H PRN PRN Reason: Headache/Fever or Pain Last Admin: 03/12/18 05:15 Dose: 650 mg Acetaminophen (Tylenol) 650 mg [place] Q4H PRN PRN Reason: Headache/Fever or Pain Albuterol/Ipratropium (Duoneb) 3 ml NEB [id number] [facility] Last Admin: 03/12/18 13:35 Dose: 3 ml Bisacodyl (Dulcolax) 10 mg PO DAILYPRN PRN PRN Reason: Constipation Bumetanide (Bumex) 2 mg IVP 0600 [facility] Last Admin: 03/12/18 08:46 Dose: 2 mg Bumetanide (Bumex) 1 mg IVP 1400 [facility] Last Admin: 03/12/18 13:52 Dose: 1 mg Dextrose/Water (Dextrose 50%) 25 gm SLOW IVP PRN PRN PRN Reason: Hypoglycemia Glucagon (Glucagon) 1 mg IM PRN PRN PRN Reason: Hypoglycemia Dextrose/Water (D5w) 1,000 mls @ 0 mls/hr IV .Q0M PRN; As Directed PRN Reason: Hypoglycemia Insulin Human Lispro (Humalog) 0 units SC .MILD SLIDING SCALE PRN PRN Reason: Mild Correctional Scale Last Admin: 03/12/18 08:47 Dose: 2 unit Miscellaneous Medication (Pharmacy To Dose) 1 each PO PRN PRN PRN Reason: . Mometasone Furoate/Formoterol Fumar (Dulera 200 Mcg/5 Mcg Inhaler) 2 puff INH BID-RT [facility] Last Admin: 03/12/18 07:53 Dose: 2 puff Ondansetron HCl (Zofran) 4 mg IVP Q6H PRN PRN Reason: Nausea/Vomiting Sodium Chloride (Flush - Normal Saline) 10 ml IVF Q12HR [facility] Last Admin: 03/12/18 08:47 Dose: 10 ml Sodium Chloride (Flush - Normal Saline) 10 ml IVF PRN PRN PRN Reason: Saline Flush Last Admin: 03/11/18 15:22 Dose: 10 ml Warfarin Sodium (Coumadin) 4 mg PO TuSa@1700 [facility] Last Admin: 03/10/18 17:13 Dose: 4 mg Warfarin Sodium (Coumadin) 6 mg PO SuMoWeThFr@1700 [facility] Last Admin: 03/11/18 17:25 Dose: 6 mg
[2018-03-12 15:20] LABS: Hemoglobin 15.7 g/dL (14.0-18.0); Platelet Count 146 thou/uL (130-400)
[2018-03-12] MEDS: Warfarin Sodium 3 MG TAB PO SCH (17:17)
--- NOTE | 2018-03-12 18:59 | PRG ---
DATE OF SERVICE: 03/11/2018 SERVICE: Pulmonary Medicine. INTERVAL HISTORY: The patient is doing fairly well from a respiratory standpoint. He is breathing c omfortably. He is a little frustrated by his lower extremity swelling, not improving dramatically. That being said, his belly is much less swollen. He no longer has the pitting edema around the waist . He denies any current fevers or chills. He is sleeping comfortably. PHYSICAL EXAMINATION: VITAL SIGNS: Afebrile, pulse 78, blood pressure 114/58, respirations 18, saturation 93% on 4 L nasal cannula. General: The patient is awake and alert, in no apparent distress. LUNGS: Decent air entry. There is no prolonged expiratory phase or wheezing present. HEART: Normal rate, regular. ABDOMEN: Soft, nontender, nondistended. Bowel sounds are positive. MUSCULOSKELETAL: No cyanosis or clubbing. He has got 2 to 3+ pitting in the bilateral lower extremi ties. NEUROLOGIC: Grossly nonfocal. LABORATORY DATA: CBC is unremarkable. Creatinine is 1.04 and roughly stable. Potassium is 3.4. [facility] metabolic profile is otherwise unremarkable. Blood cultures x2 are unremarkable. ASSESSMENT 1. Acute hypoxic respiratory failure. 2. Acute on chronic diastolic heart failure. 3. Pulmonary hypertension, multifactorial. 4. Chronic obstructive pulmonary disease without acute exacerbation. PLAN: We will continue gently diuresing the patient as much as his kidneys tolerate. We can conside r dose of metolazone in the morning. Potassium will be replaced today. Pulmonary Critical Care will continue to follow. Dr. Cartagena will resume care in the morning.
[2018-03-13] MEDS: Bumetanide 1 MG/4 ML VIAL IVP SCH (05:06)
[2018-03-13 05:35] LABS: INR-International Normal Ratio 3.1; Prothrombin Time 33.6 SEC (12.0-14.7)
[2018-03-13] MEDS: Mometasone/Formoterol 120 PUFF INHALER INH SCH (08:08)
--- NOTE | 2018-03-13 09:38 | PRG ---
DATE OF SERVICE: 03/13/2018 SUBJECTIVE: Mr. Owens feels better and wants to go home. OBJECTIVE: VITAL SIGNS: On exam, temperature is 96.4, pulse 60, blood pressure 138/65, O2 92% on 4 liters. HEENT: Unremarkable. NECK: No JVD. CHEST: Clear without wheezing. CARDIAC: S1 and S2, regular. ABDOMEN: Soft. EXTREMITIES: No edema. His weight has fallen from an admission weight of 250-243 pounds. ASSESSMENT: 1. Congestive heart failure with exacerbation. 2. Chronic obstructive pulmonary disease. PLAN: Continuing diuresis. The patient should be able to go home soon.
[2018-03-13 11:21] VITALS: BP 145/61; TEMP 97.8
[2018-03-13] MEDS ORDERED: Warfarin Sodium 2 MG TAB PO SCH (17:00)
--- NOTE | 2018-03-13 17:25 | DIS ---
DATE OF ADMISSION: 03/08/2018 DATE OF DISCHARGE: 03/13/2018 ADMITTING DIAGNOSES: Acute congestive heart failure, diastolic dysfunction. DISCHARGE DIAGNOSES: Acute congestive heart failure with diastolic dysfunction/ SECONDARY DIAGNOSES: 1. Acute chronic obstructive pulmonary disease exacerbation. 2. Type 2 diabetes mellitus. 3. Hypertension. 4. Atrial fibrillation. 5. History of dyslipidemia. CONSULTANTS: Involved in the care of Dr. Cartagena from Pulmonary Critical Care. Dr. Luis Moseley from Cardiology, Dr. Puma Blanton from Pulmonary Critical Care. HISTORY OF PRESENT ILLNESS: In brief, this is a 72-year-old white male with a known history of COPD on home oxygen on 4 liters. He presented to the hospital complaining of worsening shortness of breat h and with signs suggestive of congestive heart failure with baseline elevated BNP and pulmonary umesh a. The patient was started on IV Lasix and has worsening swelling in both her lower extremities and Cardiology was also consulted. During this admission, patient had a thorough evaluation with 2D echo which did not show any evidence of wall motion abnormalities, but had an ejection fraction of 55%-60 %. Pulmonary was also involved, as the patient had a COPD which has exacerbation with a cough and gr een sputum production. The patient was started on Dulera steroid inhaler along with his home dose an ticholinergic inhalers. Patient showed good improvement slowly and was back on his home oxygen of 4 liters. After thorough evaluation, the patient was discharged home in stable condition to continue t he steroid inhaler. PHYSICAL EXAMINATION: On day of discharge, VITAL SIGNS: Blood pressures were 145/61, heart rate is 70, respirations 18, saturation 95% on 4 lit ers. GENERAL: The patient is moderately built, moderately nourished. Does not appear to be in acute dist ress at this time. He is alert, oriented x3. HEENT: Atraumatic, normocephalic. PERRLA. Extraocular movements were intact. CARDIOVASCULAR SYSTEM: S1, S2 normal. No murmurs, rubs or gallops. LUNGS: Bilateral air entry was equal. No wheezing, no crackles. ABDOMEN: Soft, nontender. No guarding or rebound tenderness. Bowel sounds normal. DISCHARGE MEDICATIONS: 1. Aspirin 81 mg daily. 2. Bumetanide 2 mg p.o. daily. 3. Famotidine 20 mg p.o. daily. 4. Glyburide 5 mg p.o. t.i.d. 5. Potassium 10 mEq p.o. b.i.d. 6. Warfarin 2 mg p.o. as directed. NEW DISCHARGE MEDICATIONS: Dulera 1 puff inhalation b.i.d. DISCHARGE INSTRUCTIONS: Continue activity as tolerated. Advised to follow up with the primary care physician in 1 week. The patient sees Dr. Mota, need to follow up in 1 week. The patient was also advised to follow up with Pulmonary Critical Care in 1-2 weeks. Also advised to follow up with Cardiology in 2 weeks. I spent 35 minutes with this patient.
[2018-03-14] MEDS ORDERED: Warfarin Sodium 3 MG TAB PO SCH (17:00)
== END 2018-03-13 11:52 | disposition home or self-care (01) | DRG 291 ==
LOC: ERS 11:45 → 2NO 14:04
PROVIDERS: ADMIT Internal Medicine; ATTEND Internal Medicine
DX: I13.0 Hypertensive heart and chronic kidney disease with heart failure and stage 1 through stage 4 chronic kidney disease, or unspecified chronic kidney disease (principal); I50.33 Acute on chronic diastolic (congestive) heart failure; E11.22 Type 2 diabetes mellitus with diabetic chronic kidney disease; I48.0 Paroxysmal atrial fibrillation; L03.116 Cellulitis of left lower limb; L03.115 Cellulitis of right lower limb; Z95.1 Presence of aortocoronary bypass graft; I25.10 Atherosclerotic heart disease of native coronary artery without angina pectoris; N18.2 Chronic kidney disease, stage 2 (mild); E78.5 Hyperlipidemia, unspecified; J44.9 Chronic obstructive pulmonary disease, unspecified; F41.9 Anxiety disorder, unspecified; F32.9 Major depressive disorder, single episode, unspecified; Z79.01 Long term (current) use of anticoagulants; Z79.899 Other long term (current) drug therapy; Z79.82 Long term (current) use of aspirin; Z99.81 Dependence on supplemental oxygen
CPT/HCPCS: 36415; 36416; 71045; 80048; 80053; 80076; 82553; 83735; 83880; 84145; 84484; 85014; 85018; 85025; 85049; 85610; 85730; 87040; 93005; 93306; 93798; 94640; 94664; 96365; 96367; 96375; A4216; J0696; J1200; J1940; J2930; J3370; J3475; J3490; J7050; J7620

== ENCOUNTER 2018-07-13 08:25 | Outpatient (CLI) | payer MEDICARE | END 2018-07-13 08:26 | disposition home or self-care (01) | LOC: BICULT 08:25 | PROVIDERS: ATTEND Internal Medicine Geriatric Medicine | DX: Z13.6 Encounter for screening for cardiovascular disorders (principal); R18.8 Other ascites | CPT/HCPCS: 76775 ==

== ENCOUNTER 2018-08-04 11:01 | Inpatient (IN) | payer MEDICARE ==
[2018-08-04] MEDS ORDERED: Magnesium Sulfate 2 GM/100 ML BAG ONE (11:23)
[2018-08-04] MEDS ORDERED: Dexamethasone 10 MG/ML VIAL ONE (11:23)
[2018-08-04] MEDS ORDERED: Albuterol Sulfate 2.5 mg/0.5 ml Neb ONE ×2 (11:24)
[2018-08-04 11:31] LABS: #Eosinphils 0.1 thou/uL (0.0-0.7); #Lymphocytes 1.5 thou/uL (1.20-3.40); #Monocytes 1.1 thou/uL (0.11-0.59); #Neutrophils 4.9 thou/uL (1.40-6.50); %Basophils 0.2 % (0.0-1.0); %Eosinophils 1.6 % (0.0-10.0); %Lymphocytes 19.6 % (21.0-51.0); %Monocytes 14.7 % (0.0-10.0); %Neutrophils 63.9 % (42.0-75.0); Hemoglobin 13.7 g/dL (14.0-18.0); Mean Corpuscular HGB CONC 30.1 g/dL (32.0-36.0); Mean Corpuscular Hemoglobin 25.1 pg (27.0-31.0); Mean Corpuscular Volume 83.2 fL (78.0-98.0); Mean Platelet Volume 10.2 fL (7.4-10.4); Platelet Count 244 thou/uL (130-400); RBC Distribution Width 19.2 % (11.5-14.5); Red Blood Cell (RBC) Count 5.48 mill/uL (4.70-6.10); White Blood Cell (WBC) Count 7.6 thou/uL (4.8-10.8)
[2018-08-04 11:40] LABS: INR-International Normal Ratio 3.8; PTT 48.8 SEC (22.9-36.1); Prothrombin Time 37.7 SEC (12.0-14.7)
[2018-08-04 11:50] LABS: Actual Bicarbonate (HCO3a) 20.7 mEq/L (22-28); Analyzer IN Cardio ER; Base Excess (BEa) -1.9 mEq/L (-2.0 to +3.0); CO2 Tension 29.5 mmHg (35.0-45.0); Calcium, Ionized 1.14 mmol/L (1.12-1.30); Carboxyhemoglobin (COHb) 1.4 gm% (0.0-3.0); Hemoglobin (Hb) 14.1 g/dL (14.0-18.0); Potassium - ABG Lab 3.87 mmol/L (3.70-5.30); pH, Arterial 7.46 (7.35-7.45)
[2018-08-04 11:55] LABS: ALT (SGPT) 18 U/L (8-55); AST (SGOT) 38 U/L (5-34); Albumin 3.6 g/dL (3.4-4.8); Alkaline Phosphatase 131 U/L (40-150); Anion Gap 16 mmol/L (10-20); BUN (Urea Nitrogen) 42 mg/dL (8.4-25.7); Bilirubin, Total 2.2 mg/dL (0.2-1.2); CK (CPK) 65 U/L (30-200); CKMB 2.3 ng/mL (0-6.6); Calc. Creatinine Clearance 0 mL/min (70-130); Carbon Dioxide 20 mmol/L (23-31); Chloride 107 mmol/L (98-107); Estimated GFR-MDRD 48; Globulin 3.6 g/dL (2.4-3.5); Glucose 188 mg/dL (83-110); Lipase 22 U/L (8-78); Potassium 4.5 mmol/L (3.5-5.1); Protein, Total 7.2 g/dL (5.8-8.1); Sodium 138 mmol/L (136-145); Troponin I 0.152 ng/mL (< 0.028)
[2018-08-04 11:55] LABS: O2 Tension (PaO2) 49.2 mmHg (> 70.0)
[2018-08-04 11:56] LABS: ALV-art Gradient 142.085 (0-20)
--- NOTE | 2018-08-04 12:41 | RAD ---
SINGLE VIEW OF THE CHEST: COMPARISON: 03/08/18. HISTORY: Shortness of breath and mild cough; dyspnea. FINDINGS: A single view of the chest shows an enlarged cardiomediastinal silhouette. The patient is status pos t sternotomy. There are increased interstitial lung markings. There is no evidence of consolidation , mass, or pleural effusion. IMPRESSION: No evidence of acute cardiopulmonary disease. POS: [facility]
--- NOTE | 2018-08-04 13:11 | CT ---
Ct of the abdomen and pelvis without contrast: COMPARISON: 03/06/15. HISTORY: Shortness of breath; abdominal pain and abdominal distention. TECHNIQUE: Multiple contiguous axial images were obtained in a CT of the abdomen and pelvis without contrast. C oronal reformats were performed. FINDINGS: There is a moderate amount of ascites. The spleen is normal in size. There is hyperdense material i n the dependent gallbladder which may represent gallstones. No biliary dilatation is seen. The kidneys, adrenal glands, and pancreas are unremarkable, although evaluation was limited on this n oncontrast examination. The large and small bowel are unremarkable. No abdominal or pelvic lymphadenopathy are seen. Athero sclerotic calcifications are seen in the aorta. Degenerative changes are seen in the spine. Diffuse soft tissue anasarca is seen. There are trace b ilateral pleural effusions. IMPRESSION: 1. Moderate ascites. 2. Hyperdense material in the gallbladder likely represents gallstones. POS: [facility]
[2018-08-04 13:24] LABS: Bilirubin Negative (Negative); Blood, Urine Negative (Negative); Clarity CLEAR (Clear); Glucose, Urine (Dipstick) Negative (Negative); Leukocyte Trace (Negative); Nitrite Negative (Negative); Protein, Urine (Dipstick) 30 mg/dL (Neg-Trace); Specific Gravity, Urine 1.014 (1.002-1.036)
[2018-08-04 13:26] LABS: Bacteria/HPF None Seen HPF (None Seen); Hyaline Casts/LPF 0-3 HYALINE CAST LPF (0-3 Hyaline); Pathc Cast-AUWi Flag 0.43 (0-2.49); RBC/HPF 0-3 HPF (0-3); Squamous Epithelial 0-3 HPF (0-3); WBC/HPF 0-3 HPF (0-3)
--- NOTE | 2018-08-04 14:56 | HP ---
PRIMARY CARE PHYSICIAN: Dr. Svetlana Gonzalez. REASON FOR ADMISSION: Acute on chronic diastolic congestive heart failure exacerbation, acute on chr onic hypoxic respiratory failure, anasarca. HISTORY OF PRESENT ILLNESS: A 73-year-old male who has underlying history of right-sided heart failu re. His echo in 02/2018 showed pretty much normal EF, but he has severely enlarged right ventricle a nd moderate tricuspid regurgitation. He has underlying diastolic heart failure. His last admission was in end of February. He came to emergency room today with increasing shortness of breath, increasing lower extremity edema and increasing abdominal distention. This is going on for the last one month. The patient was ignoring to come to hospital. The patient reports that he is trying to restrict hi mself with liquid intake, but his edema is gradually getting worse. He is using elastic stockings th at help, but during end of the day, his swelling is getting worse. He is able to lie down flat, but he has to sleep in the right lateral position to get better sleep lately. Lately, he is getting tire d very quickly even after walking a few steps, he gets out of breath and he gets fatigued and he has to rest. For last 2-3 weeks, he also noticed increasing abdominal distention. He denies any dizzine ss or syncope. Last night, he had vague chest discomfort which he attributes to his discomfort from abdominal distention. He took nitroglycerin that did not help significantly his chest discomfort. The patient saw his primary care physician on Monday and she told him to go to emergency room, but th e patient did not want to come yesterday and that is why he came to Emergency Room today. In the emergency room, patient had significant anasarca. He had chest x-ray which was unremarkable, but CT abdomen and pelvis showed ascites. The patient had a bad reaction with Lasix and that is why he refused to the Lasix in the emergency room. Patient is being admitted to telemetry floor for more diuresis. REVIEW OF SYSTEMS: The following complete review of systems was negative, unless otherwise mentioned in the HPI or below: Constitutional: Weight loss or gain, ability to conduct usual activities. Skin: Rash, itching. Eyes: Double vision, pain. ENT/Mouth: Nose bleeding, neck stiffness, pain, tenderness. Cardiovascular: Palpitations, dyspnea on exertion, orthopnea. Respiratory: Shortness of breath, wheezing, cough, hemoptysis, fever or night sweats. Gastrointestinal: Poor appetite, abdominal pain, heartburn, nausea, vomiting, constipation, or diarr hea. Genitourinary: Urgency, frequency, dysuria, nocturia. Musculoskeletal: Pain, swelling. Neurologic/Psychiatric: Anxiety, depression. Allergy/Immunologic: Skin rash, bleeding tendency. Please see my HPI for pertinent positive and negative. All other review of systems reviewed and nega tive except as mentioned in the HPI. PAST MEDICAL HISTORY: Coronary artery disease required CABG in 2010, paroxysmal atrial fibrillation on chronic anticoagulation, hypertension, diabetes type 2, CKD stage 2, dyslipidemia, COPD, chronic d iastolic heart failure, predominantly right-sided. PAST SURGICAL HISTORY: CABG x6 vessels, pilonidal cyst removal. PAST PSYCHIATRIC HISTORY: Reviewed and negative. SOCIAL HISTORY: Patient lives at home. He is a former smoker. He quit smoking in 2010. He is an e x-alcoholic and he quit drinking also several years ago. He denies current use of alcohol or smoking . He denies any other illicit drug abuse. He lives at home with his family. FAMILY HISTORY: Positive for coronary artery disease among several family members. ALLERGIES: No known drug allergy. CURRENT HOME MEDICATIONS: Warfarin 6 mg Monday, Monday, , Monday, Monday and 4 mg on , Saturdays; aspirin 81 mg daily; coenzyme Q10 400 mg p.o. daily; Livalo 4 mg p.o. daily; Lantus 20 units subcu in the evening; Anoro Ellipta 1 puff inhalation daily; glyburide 5 mg p.o. b.i.d.; Bum ex 2 mg p.o. daily and potassium chloride 20 mEq p.o. b.i.d. EMERGENCY ROOM COURSE: The patient received aspirin 325 mg, DuoNeb therapy, albuterol nebulization a nd magnesium sulfate. PHYSICAL EXAMINATION: VITAL SIGNS: Currently, blood pressure 128/70, saturation 85% on room air, pulse 71, respiratory rat e 24, temperature 97.5, saturation 85% on room air, weight 124.3 kilograms. GENERAL: Patient is currently alert, awake, no obvious acute distress. HEAD: Normocephalic, atraumatic. EYES: Pupils round, reactive to light. Extraocular muscle intact. ENT: Oropharynx within normal limits. Moist mucous membranes. No oral lesion, no pharyngeal erythe ma, no exudate. NECK: Elevated JVD, no thyromegaly, no carotid bruit. LUNGS: Grossly clear without any obvious rhonchi or rales. CARDIAC: S1, S2 regular. Loud P2 heard. Soft systolic murmur noted at parasternally. Gallop prese nt. ABDOMEN: Distended, ascites present, no organomegaly, no mass, no Riojas's sign, no suprapubic disco mfort. BACK: Examination unremarkable, no CVA tenderness. EXTREMITIES: Upper extremity passive movements of all joints are normal. Lower extremity; bilateral +4 pitting edema up to thigh level. Good distal pulsation. Swelling is more on the right than left . NEUROLOGIC: Nonfocal examination. SKIN: No skin rash. HEMATOLOGICAL SYSTEM: No lymphadenopathy. IMAGING DATA AND SIGNIFICANT LABORATORY DATA: EKG showing right bundle branch block pattern, normal sinus rhythm. CT of the abdomen and pelvis, moderate ascites, gallstones, no cholecystitis, diffuse anasarca. Chest x-ray with no acute cardiopulmonary process. CBC: WBC 7.6, hemoglobin 13.7, platel et was 244. INR 3.8. ABG: pH 7.46, CO2 29.5, O2 49.2, saturation 84.7, bicarbonate 20.7. BMP: So dium 138, potassium 4.5, chloride 107, carbon dioxide 20, BUN 42, creatinine 1.45, glucose 188, calci um 9.0, lactic acid 2.2. LFT: AST 38, ALT 18, alkaline phosphatase 131, albumin 3.6, lipase 22, CK- MB 2.3, troponin I 0.152. BNP 1062. Urinalysis; leukocyte esterase trace. ASSESSMENT AND PLAN/IMPRESSION: 1. Acute on chronic diastolic congestive heart failure, stage C, predominantly right-sided heart jessica lure. Patient has elevated JVD, gallop, significant edema in lower extremity with ascites. The marni ent has anasarca, Most recent echocardiography in 02/2018 showed dilated right ventricle with normal EF. At this point, Cardiology group will be consulted. Nephrology will be consulted as per patient request because of diuretic therapy management. The patient is not tolerating Lasix in the past and that is why we will try with Bumex 1 mg IV b.i.d., fluid restriction 1200 mL per day. We will monit or electrolytes and replace accordingly. We will monitor renal function, daily weight and input outp ut monitoring. 2. Acute on chronic respiratory failure with hypoxia. Patient has home oxygen therapy for his chron ic respiratory failure. He was hypoxic upon arrival. We will continue with oxygen to keep saturatio n above 92%. We will continue the DuoNeb therapy p.r.n. basis. His hypoxic respiratory failure is r elated with right-sided heart failure and possibly underlying chronic obstructive pulmonary disease. 3. Chronic obstructive pulmonary disease. Currently, does not appear to be in chronic obstructive p ulmonary disease flare-up. More predominantly, patient's symptoms are explained by anasarca, heart f ailure and volume overload status. Still we will continue his home medication with Anoro Ellipta inh alation daily if we have. Otherwise we will use Dulera 2 puffs inhalation b.i.d. and DuoNeb q.6 hour ly p.r.n. basis. 4. Ascites and lower extremity edema, all consistent with anasarca related with the heart failure. The patient will need aggressive diuresis and he will require several days in hospital to monitor jacky ctrolytes and renal function. 5. Diabetes type 2. We will continue with Levemir insulin 20 units subcu daily and Humalog insulin as per sliding scale per protocol. Diabetic diet will be given, glyburide 5 mg p.o. b.i.d. 6. Dyslipidemia. Continue Livalo 4 mg p.o. at bedtime. 7. Paroxysmal atrial fibrillation. Currently, INR is supratherapeutic and that is why we will hold on warfarin therapy today and we will reduce dose of warfarin to 4 mg p.o. daily from tomorrow depend ing upon PT/INR. We will monitor PT/INR on daily basis. 9. Cholelithiasis, asymptomatic. At this point does not need any further evaluation. 10. Elevated troponin. We will do serial cardiac enzymes x3. We will continue aspirin 81 mg p.o. d aily. 11. Chronic kidney disease stage 3. We will monitor renal function. Nephrology consulted. Disposition plan based on clinical course. Code status is FULL CODE. The patient's daughter is surr ogate decision maker. Disposition plan based on clinical course. We are expecting patient's stay in hospital more than 2 midnights. [facility].
[2018-08-04] MEDS ORDERED: Mag-Al 1200 mg/1200 mg/30 ML UDCUP PO PRN (15:02)
[2018-08-04] MEDS ORDERED: Artificial Tears 18 DROP/0.9 ML EA EYE PRN (15:02)
[2018-08-04] MEDS ORDERED: Chloraseptic Spray 180 ml Bottle PO PRN (15:02)
[2018-08-04] MEDS ORDERED: Sodium Chloride 0.65% Nasal 44 ML BOT EA NARE PRN (15:02)
[2018-08-04] MEDS ORDERED: Loratadine 10 MG TAB PO PRN (15:02)
[2018-08-04] MEDS ORDERED: Ondansetron ODT 4 MG TAB PO PRN (15:02)
[2018-08-04] MEDS ORDERED: hydrALAZINE 20 MG/ML VIAL SLOW IVP PRN (15:02)
[2018-08-04] MEDS ORDERED: HYDROcodone/Acetaminophen 5/325 mg Tablet PO PRN (15:02)
[2018-08-04] MEDS ORDERED: Eucerin (Mineral Oil/Petrolatum,White) 30 gm Jar TOP PRN (15:02)
[2018-08-04] MEDS ORDERED: Ondansetron HCl/PF 4 MG/2 ML Vial IVP PRN (15:02)
[2018-08-04] MEDS ORDERED: Dextrose 5% in Water 1,000 ML IV PRN (15:02)
[2018-08-04] MEDS ORDERED: Diabetic Tussin 200 MG/10 ML UDCUP PO PRN (15:02)
[2018-08-04] MEDS ORDERED: Loperamide HCl 2 MG CAP PO PRN (15:02)
[2018-08-04] MEDS ORDERED: Zolpidem Tartrate 5 MG TAB PO PRN (15:02)
[2018-08-04] MEDS ORDERED: Milk Of Magnesia 30 ML UDCUP PO PRN (15:02)
[2018-08-04] MEDS ORDERED: Acetaminophen 325 MG TAB PO PRN (15:02)
[2018-08-04] MEDS ORDERED: Senokot 8.6 MG TAB PO PRN (15:02)
[2018-08-04] MEDS ORDERED: Dextrose 50% Abboject 50 ML SYRINGE SLOW IVP PRN (15:02)
[2018-08-04 15:06] LABS: Troponin I 0.165 ng/mL (< 0.028)
--- NOTE | 2018-08-04 17:22 | CON ---
DATE OF CONSULTATION: 08/04/2018 REASON FOR CONSULTATION: Acute on chronic diastolic heart failure. HISTORY OF PRESENT ILLNESS: Mr. Owens is a pleasant 73-year-old gentleman with history of coronary artery disease, status post bypass surgery. He has a history of diastolic dysfunction and likely RV dysfunction. He has a previous history of tobacco abuse. He underwent bypass surgery in 2010. He r ecently states he had increased lower extremity edema in addition to shortness of breath and 20-pound weight gain over the last several weeks. He did have one episode of chest pain. No other ameliorat ing, exacerbating, or precipitating factors present. PAST MEDICAL HISTORY: CAD, status post bypass surgery; atrial fibrillation; hypertension; diabetes m ellitus; chronic kidney disease; COPD. SOCIAL HISTORY: Previous tobacco abuse. No current alcohol use. He is currently . FAMILY HISTORY: Positive for CAD. ALLERGIES: None. HOME MEDICATIONS: Include Coumadin, aspirin, Coenzyme Q, Lantus, Ellipta, glyburide, Bumex, potassiu m. REVIEW OF SYSTEMS: Ten-point review of systems is reviewed and as above, otherwise negative. PHYSICAL EXAMINATION: GENERAL: Patient is a pleasant male who is in no acute distress. The patient appears his stated age . VITAL SIGNS: Blood pressure 117/57, pulse 78, temperature afebrile. NEUROLOGIC: The patient is alert and oriented times 3 with no focal neurologic deficits. HEENT: Sclerae without icterus. Mouth has moist mucous membranes with normal pallor. NECK: No JVD. Carotid upstroke brisk. No bruits bilaterally. LUNGS: Crackles noted bilaterally. BACK: No scoliosis or kyphosis. CARDIAC: Regular rate and rhythm with normal S1 and S2. No S3 or S4 noted. No significant rubs, mu rmurs, thrills, or gallops noted throughout the precordium. PMI is not displaced. There is no pamella ternal heave. ABDOMEN: Positive ascites. EXTREMITIES: 2-3+ pitting edema. SKIN: No gross abnormalities. PERTINENT LABORATORY DATA: Hemoglobin 13.7. Creatinine 1.45 with a GFR of 48. Peak troponin 0.165, BNP of 1062. IMPRESSION: 1. Heart failure, likely diastolic and right-sided. 2. Coronary artery disease. 3. Status post bypass surgery. RECOMMENDATIONS: Consider repeating echo. He is currently on Bumex at 1 mg IV b.i.d. May also cons ider Zaroxolyn if minimal response. Network Lead the patient on a diet intake. We will also add low dose beta zia therapy.
[2018-08-04 17:50] LABS: Troponin I 0.161 ng/mL (< 0.028)
[2018-08-04] MEDS: glyBURIDE 5 MG TAB PO SCH (17:52)
[2018-08-04] MEDS: Mometasone/Formoterol 120 PUFF INHALER INH SCH (18:56)
[2018-08-04] MEDS ORDERED: Furosemide 40 MG/4 ML VIAL SLOW IVP SCH (21:00)
[2018-08-04] MEDS: Insulin Glargine 20 UNITS in Pre-Filled Syringe 1 EACH SC SCH ×2 (21:10→21:13)
[2018-08-04] MEDS ORDERED: Metolazone 5 MG TAB PO SCH (22:00)
--- NOTE | 2018-08-04 23:18 | CON ---
DATE OF CONSULTATION: 08/04/2018 CONSULTING PHYSICIAN: Vani Moseley MD REQUESTING PHYSICIAN: Richelle Love MD REASON FOR CONSULTATION: Anasarca. IMPRESSION: 1. Anasarca. This is likely in the context of right-sided heart failure; however, cannot completely rule out a nephrotic syndrome picture. 2. Hypervolemia with estimated accumulated fluid weight of more than 30 pounds. 3. Respiratory distress in the context of the problem listed above. 4. Chronic kidney disease, baseline chronic kidney disease 3. PLAN: 1. Aggressive diuresis with parenteral Bumex in order to circumvent the absorption limitation due to congestive gastroenteropathy to oral medications. 2. We will augment this Bumex with Zaroxolyn. 3. Monitor the electrolytes and the kidney function as the patient begins to undergo diuresis. 4. Renally dose all medications and avoid potentially nephrotoxic agents. 5. Further management will be dependent on the clinical course. Meanwhile, the patient to be on low -salt diet. The degree of proteinuria will be estimated vis-a-vis a possibility of nephrotic syndrom e picture. HISTORY OF PRESENT ILLNESS: History is that of 73-year-old gentleman known to my chronic kidney dise ase clinic when the patient did present because of significant fluid overload. The patient has had a bad experience with furosemide and at the office, decision was taken to place this patient on Bumex with p.r.n. Zaroxolyn to augment the effect of this medication. The patient did very well in this re gimen as the patient responded very well for the most part with the Bumex. The patient for the past 5 weeks has been experiencing gradually increasing with worsening edema to the point that the patient estimates about 20 pounds, but I do believe this patient has more than 30 pounds of fluid with accum ulation. This has progressed to the point of worsening shortness of breath and limitation of the pat ient's activities of daily living. It was advised by the primary care physician to present to the ER , where decision was taken to involve Renal in the management of this case. PAST MEDICAL HISTORY: Significant for chronic kidney disease, stage 3; diastolic heart failure with preserved ejection fraction based on previous echocardiogram; coronary artery disease, status post CA BG in 2010; paroxysmal atrial fibrillation, coagulopathic, on Coumadin; hypertension; type 2 diabetes ; dyslipidemia; chronic obstructive pulmonary disease. MEDICATIONS: Reviewed and as documented on [employer]. SOCIAL HISTORY: The patient is . Remote tobacco use. No alcohol, no illicit drug use. FAMILY HISTORY: Significant for heart disease. ALLERGIES: No known drug allergy. The patient does not do well with LASIX. LABORATORY INVESTIGATION: Significant for proteinuria, creatinine of 1.45. PHYSICAL EXAMINATION: GENERAL: The patient was found to be in some respiratory distress and noted with the following vital signs. VITAL SIGNS: Afebrile with temperature 97.2, pulse 68, respiratory rate of 20, O2 sat of 89% on 3 li ters with blood pressure 155/64. HEENT: Unremarkable. CARDIOVASCULAR SYSTEM: First and second heart sounds were heard. RESPIRATORY SYSTEM: Clear to auscultation anteriorly. DIGESTIVE SYSTEM: Revealed a grossly distended abdomen with edema x4. EXTREMITIES: Showed 3 to 4+ bilateral lower extremity edema. NEUROLOGIC: Alert, oriented. No lateralizing signs. LYMPHATICS: No peripheral lymphadenopathy. SUMMARY: A 73-year-old gentleman with anasarca with baseline chronic kidney disease stage 3. Thank you for this consultation. We will follow with you.
[2018-08-05] MEDS: Insulin Glargine 20 UNITS in Pre-Filled Syringe 1 EACH SC SCH (01:47)
[2018-08-05 05:49] LABS: INR-International Normal Ratio 3.7; Prothrombin Time 36.7 SEC (12.0-14.7)
[2018-08-05] MEDS: Bumetanide 1 MG/4 ML VIAL IVP SCH ×2 (05:56→15:09)
[2018-08-05 05:57] LABS: ALT (SGPT) 15 U/L (8-55); AST (SGOT) 26 U/L (5-34); Albumin 3.5 g/dL (3.4-4.8); Alkaline Phosphatase 110 U/L (40-150); Anion Gap 13 mmol/L (10-20); BUN (Urea Nitrogen) 41 mg/dL (8.4-25.7); Bilirubin, Total 2.4 mg/dL (0.2-1.2); Calc. Creatinine Clearance 83 mL/min (70-130); Calcium 9.1 mg/dL (7.8-10.44); Carbon Dioxide 21 mmol/L (23-31); Chloride 109 mmol/L (98-107); Estimated GFR-MDRD 51; Globulin 3.2 g/dL (2.4-3.5); Glucose 228 mg/dL (83-110); Potassium 3.8 mmol/L (3.5-5.1); Protein, Total 6.7 g/dL (5.8-8.1); Sodium 139 mmol/L (136-145); Uric Acid 13.6 mg/dL (3.5-7.2)
[2018-08-05] MEDS ORDERED: Bumetanide 1 MG/4 ML VIAL IVP SCH (06:00)
[2018-08-05 06:25] LABS: Band 2 % (5-11); Hemoglobin 13.1 g/dL (14.0-18.0); Lymphocytes 19 % (21-51); MDiff Complete? YES; Mean Corpuscular HGB CONC 30.6 g/dL (32.0-36.0); Mean Corpuscular Hemoglobin 25.3 pg (27.0-31.0); Mean Corpuscular Volume 82.8 fL (78.0-98.0); Monocytes 13 % (0-10); Neutrophil 66 % (42-75); PLT Morphology Comment Appears Adequate; Platelet Count 223 thou/uL (130-400); RBC Distribution Width 19.1 % (11.5-14.5); Red Blood Cell (RBC) Count 5.16 mill/uL (4.70-6.10); White Blood Cell (WBC) Count 7.2 thou/uL (4.8-10.8)
[2018-08-05] MEDS: Mometasone/Formoterol 120 PUFF INHALER INH SCH ×2 (07:55→19:04)
[2018-08-05] MEDS ORDERED: Non-Formulary Item 1 EACH (Umeclidinium Brm/Vilanterol Tr [Anoro Ellipta] 1 INH) IH SCH (09:00)
[2018-08-05] MEDS ORDERED: Non-Formulary Item 1 EACH (Pitavastatin Calcium [Livalo] 4 MG) PO SCH (09:00)
[2018-08-05] MEDS: Metolazone 5 MG TAB PO SCH (09:10)
[2018-08-05] MEDS: glyBURIDE 5 MG TAB PO SCH ×2 (09:10→16:39)
[2018-08-05] MEDS: Ubidecarenone 50 MG CAP PO SCH (09:10)
[2018-08-05] MEDS: Allopurinol 100 MG TAB PO SCH (09:11)
[2018-08-05] MEDS: Atorvastatin Calcium 20 MG TAB PO SCH (09:11)
--- NOTE | 2018-08-05 10:23 | PDOC.CTH ---
Cardiology Progress Note - Subjective Patient without complaints. Remains edematous. - Objective Vital Signs Temp Pulse Resp BP Pulse Ox 08/05/18 07:55 75 16 08/05/18 05:34 90 L 08/05/18 04:00 97.6 F 63 20 101/49 L 90 L 08/05/18 00:00 97.9 F 63 20 96/51 L 92 L Weight 274 lb 08/04/18 08/05/18 08/06/18 06:59 06:59 06:59 Intake Total 360 Output Total 600 Balance -240 - Physical Examination General/Neuro: alert & oriented x3 Lungs: other: (decreased BS) Heart: RRR Abdomen: soft, other: (mild distention; NT) Extremities: other: (+3-4 edema) - Telemetry Telemetry Rhythm: SR - Labs Result Diagrams: 08/05/18 05:32 08/05/18 05:32 Troponin/CKMB CK-MB (CK-2) 2.3 ng/mL (0-6.6) 08/04/18 11:18 Troponin I 0.161 ng/mL (< 0.028) H 08/04/18 17:18 - Assessment/Plan 1. Acute CHF - probable right-sided 2. COPD 3. CAD s/p CABG 4. CKD-2 5. DM-II Stable. Still with significant edema and third-spacing. Zaroxolyn ordered this morning per nephrology. ECHO 02/2018 showed Right-sided failure. Will not repeat at this time.
--- NOTE | 2018-08-05 11:00 | PDOC.PN ---
- Subjective Encounter Start Date: 08/05/18 Encounter Start Time: 07:50 -: old records requested/rev Patient seen and examined. No new complaints. No overnight events he is making good urine output now - Objective Resuscitation Status: Resuscitation Status FULL:Full Resuscitation MAR Reviewed: Yes Vital Signs & Weight: Vital Signs (12 hours) Temp Pulse Resp BP Pulse Ox 08/05/18 07:55 75 16 08/05/18 05:34 90 L 08/05/18 04:00 97.6 F 63 20 101/49 L 90 L 08/05/18 00:00 97.9 F 63 20 96/51 L 92 L Weight Weight 274 lb I&O: 08/04/18 08/05/18 08/06/18 06:59 06:59 06:59 Intake Total 360 Output Total 600 Balance -240 Result Diagrams: 08/05/18 05:32 08/05/18 05:32 Additional Labs: Accuchecks 08/05/18 08/04/18 08/04/18 05:43 21:01 15:11 POC Glucose 187 H 206 H 162 H EKG Reviewed by me: Yes (nsr) Phys Exam - Physical Examination Constitutional: NAD HEENT: PERRLA, moist MMs, sclera anicteric Neck: no JVD, supple Respiratory: no wheezing, no rales, no rhonchi Cardiovascular: RRR, no rub SM+ Gastrointestinal: soft, non-tender, positive bowel sounds ascites+ Musculoskeletal: pulses present, edema present Neurological: non-focal, normal sensation, moves all 4 limbs Psychiatric: normal affect, A&O x 3 Skin: no rash, normal turgor Dx/Plan (1) Acute on chronic diastolic ACC/AHA stage C congestive heart failure Code(s): I50.33 - ACUTE ON CHRONIC DIASTOLIC (CONGESTIVE) HEART FAILURE Status : Acute (2) Acute on chronic respiratory failure with hypoxia Code(s): J96.21 - ACUTE AND CHRONIC RESPIRATORY FAILURE WITH HYPOXIA Status: Acute (3) Anasarca Code(s): R60.1 - GENERALIZED EDEMA Status: Acute (4) Ascites Code(s): R18.8 - OTHER ASCITES Status: Acute (5) Hyperuricemia Code(s): E79.0 - HYPERURICEMIA W/O SIGNS OF INFLAM ARTHRIT AND TOPHACEOUS DIS Status: Acute (6) CAD (coronary artery disease) Code(s): I25.10 - ATHSCL HEART DISEASE OF [place] CORONARY ARTERY W/O ANG PCTRS Status: Chronic Comment: (7) CKD (chronic kidney disease) stage 3, GFR 30-59 ml/min Code(s): N18.3 - CHRONIC KIDNEY DISEASE, STAGE 3 (MODERATE) Status: Chronic (8) Chronic anticoagulation Code(s): Z79.01 - CUSTODIAL (CURRENT) USE OF ANTICOAGULANTS Status: Chronic (9) DM2 (diabetes mellitus, type 2) Status: Chronic Comment: (10) Dyslipidemia Code(s): E78.5 - HYPERLIPIDEMIA, UNSPECIFIED Status: Chronic Comment: (11) HTN (hypertension) Code(s): I10 - ESSENTIAL (PRIMARY) HYPERTENSION Status: Chronic Comment: (12) Obesity (BMI 30-39.9) Code(s): E66.9 - OBESITY, UNSPECIFIED Status: Chronic (13) PAF (paroxysmal atrial fibrillation) Code(s): I48.0 - PAROXYSMAL ATRIAL FIBRILLATION Status: Chronic - Plan cont current plan of care * hold warfarin as well today * continue iv bumex and zaroxolyn * monitor renal faunction, daily weight, I/O chart * medication reviewed as below * symptomatic treatment * cardiology and nephrology recommendation noted * he will need several days to make him euvolemic * start allopurinol 100 mg po daily. Review of Systems - Review of Systems Constitutional: negative: fever, chills, sweats, weakness, malaise, other Eyes: negative: Pain, Vision Change, Conjunctivae Inflammation, Eyelid Inflammation, Redness, Other ENT: negative: Ear Pain, Ear Discharge, Nose Pain, Nose Discharge, Nose Congestion, Mouth Pain, Mouth Swelling, Throat Pain, Throat Swelling, Other Respiratory: Shortness of Breath, SOB with Excertion. negative: Cough, Dry, Hemoptysis, Pleuritic Pain, Sputum, Wheezing Cardiovascular: edema Gastrointestinal: negative: Nausea, Vomiting, Abdominal Pain, Diarrhea, Constipation, Melena, Hematochezia, Other Genitourinary: negative: Dysuria, Frequency, Incontinence, Hematuria, Retention , Other Musculoskeletal: negative: Neck Pain, Shoulder Pain, Arm Pain, Back Pain, Hand Pain, Leg Pain, Foot Pain, Other Skin: negative: Rash, Lesions, Jovani, Bruising, Other - Medications/Allergies Allergies/Adverse Reactions: Allergies Allergy/AdvReac Type Severity Reaction Status Date / Time furosemide Allergy Verified 08/04/18 20:57 vancomycin Allergy Verified 08/04/18 15:47 Medications: Current Medications Acetaminophen (Tylenol) 650 mg PO Q4H PRN PRN Reason: Headache/Fever or Pain Hydrocodone Bitart/Acetaminophen ([place] 5/325) 1 tab PO Q4H PRN PRN Reason: Moderate Pain (4-6) Al Hydroxide/Mg Hydroxide (Maalox) 30 ml PO Q6H PRN PRN Reason: Heartburn or Indigestion Albuterol/Ipratropium (Duoneb) 3 ml NEB [id number] PRN PRN Reason: SOB &/or Wheezing Last Admin: 08/04/18 19:01 Dose: 3 ml Albuterol/Ipratropium (Duoneb) 3 ml NEB [id number] [facility] Allopurinol (Zyloprim) 100 mg PO DAILY [facility] Last Admin: 08/05/18 09:11 Dose: Not Given Artificial Tears (Tears Naturale) 0 drop EA EYE PRN PRN PRN Reason: Dry Eyes Aspirin (Aspirin Chewable) 81 mg PO DAILY [facility] Last Admin: 08/05/18 09:10 Dose: 81 mg Atorvastatin Calcium (Lipitor) 20 mg PO DAILY [facility] Last Admin: 08/05/18 09:11 Dose: Not Given Bumetanide (Bumex) 2 mg IVP 0600,1400 [facility] Last Admin: 08/05/18 05:56 Dose: 2 mg Coenzyme Q10 (Coenzyme Q10) 400 mg PO DAILY [facility] Last Admin: 08/05/18 09:10 Dose: 400 mg Dextrose/Water (Dextrose 50%) 25 gm SLOW IVP PRN PRN PRN Reason: Hypoglycemia Glucagon (Glucagon) 1 mg IM PRN PRN PRN Reason: Hypoglycemia Glyburide (Diabeta) 5 mg PO BID-[facility] Last Admin: 08/05/18 09:10 Dose: 5 mg Guaifenesin (Robitussin Sf) 200 mg PO Q4H PRN PRN Reason: Cough Hydralazine HCl (Apresoline) 10 mg SLOW IVP Q4H PRN PRN Reason: Systolic BP > 180 Dextrose/Water (D5w) 1,000 mls @ 0 mls/hr IV .Q0M PRN PRN Reason: Hypoglycemia Insulin Glargine 10 units/ (Miscellaneous Medication) 0.1 mls @ 0 mls/hr SC HS [facility] Insulin Human Lispro (Humalog) 0 units SC .MODERATE SLIDING SC PRN PRN Reason: Moderate [place] Scale Insulin Human Lispro (Humalog) 0 units SC .BEDTIME SLIDING SC PRN PRN Reason: Bedtime [place] Scale Loperamide HCl (Imodium) 2 mg PO PRN PRN PRN Reason: Diarrhea/Loose Stools Loratadine (Claritin) 10 mg PO DAILYPRN PRN PRN Reason: Sinus Symptoms Magnesium Hydroxide (Milk Of Magnesium) 30 ml PO DAILYPRN PRN PRN Reason: Constipation Metolazone (Zaroxolyn) 5 mg PO 0830 [facility] Last Admin: 08/05/18 09:10 Dose: 5 mg Mineral Oil/White Petrolatum (Eucerin Cream) 0 gm TOP BIDPRN PRN PRN Reason: Dry Skin Mometasone Furoate/Formoterol Fumar (Dulera 200 Mcg/5 Mcg Inhaler) 1 puff INH BID-RT [facility] Last Admin: 08/05/18 07:55 Dose: 1 puff Ondansetron HCl (Zofran Odt) 4 mg PO Q6H PRN PRN Reason: Nausea/Vomiting Ondansetron HCl (Zofran) 4 mg IVP Q6H PRN PRN Reason: Nausea/Vomiting Phenol (Chloraseptic [place] 180 Ml Bot) 0 ml PO PRN PRN PRN Reason: Sore Throat Senna (Senokot) 2 tab PO HSPRN PRN PRN Reason: Constipation Sodium Chloride (Citrus Nasal [place] 0.65%) 0 ml EA NARE QIDPRN PRN PRN Reason: Nasal Congestion Zolpidem Tartrate (Ambien) 5 mg PO HSPRN PRN PRN Reason: Insomnia
[2018-08-05] MEDS: HumaLOG 300 UNITS/3 ML VIAL SC PRN ×2 (12:51→17:12)
[2018-08-05] MEDS: Insulin Glargine 10 UNITS in Pre-Filled Syringe 1 EACH SC SCH (21:07)
[2018-08-06 05:31] LABS: #Eosinphils 0.1 thou/uL (0.0-0.7); #Lymphocytes 1.1 thou/uL (1.20-3.40); %Basophils 0.1 % (0.0-1.0); %Eosinophils 1.8 % (0.0-10.0); %Monocytes 14.3 % (0.0-10.0); %Neutrophils 68.8 % (42.0-75.0); Mean Corpuscular HGB CONC 30.9 g/dL (32.0-36.0); Mean Corpuscular Hemoglobin 25.6 pg (27.0-31.0); Mean Corpuscular Volume 82.9 fL (78.0-98.0); Mean Platelet Volume 9.9 fL (7.4-10.4); Platelet Count 243 thou/uL (130-400); Red Blood Cell (RBC) Count 5.09 mill/uL (4.70-6.10); White Blood Cell (WBC) Count 7.2 thou/uL (4.8-10.8)
[2018-08-06 05:34] LABS: INR-International Normal Ratio 2.9
[2018-08-06 05:43] LABS: Anion Gap 15 mmol/L (10-20); BUN (Urea Nitrogen) 45 mg/dL (8.4-25.7); Calc. Creatinine Clearance 85 mL/min (70-130); Calcium 9.7 mg/dL (7.8-10.44); Carbon Dioxide 24 mmol/L (23-31); Chloride 106 mmol/L (98-107); Estimated GFR-MDRD 54; Glucose 137 mg/dL (83-110); Magnesium 2.3 mg/dL (1.6-2.6); Potassium 3.2 mmol/L (3.5-5.1); Sodium 142 mmol/L (136-145)
[2018-08-06] MEDS: Bumetanide 1 MG/4 ML VIAL IVP SCH ×2 (06:19→15:09)
[2018-08-06] MEDS: Mometasone/Formoterol 120 PUFF INHALER INH SCH ×2 (06:46→18:41)
--- NOTE | 2018-08-06 07:15 | PDOC.CTH ---
Cardiology Progress Note - Subjective Feels better. Significant diuresis present. - Objective Vital Signs Temp Pulse Resp BP BP Pulse Ox 08/06/18 06:49 75 16 86 L 08/06/18 06:46 78 18 86 L 08/06/18 04:00 98.5 F 96 20 111/65 94 L 08/06/18 00:00 98.2 F 104 H 16 90/53 L 96 08/05/18 23:19 97 08/05/18 20:20 92 L 08/05/18 20:00 97.6 F 77 20 95/49 L 92 L Weight 261 lb 1.6 oz 08/05/18 08/06/18 08/07/18 06:59 06:59 06:59 Intake Total 360 730 Output Total 600 4885 Balance -240 -4155 - Physical Examination General/Neuro: alert & oriented x3, NAD Neck: carotid US brisk, no JVD present Lungs: unlabored respirations, other: (crackles bilaterally) Heart: PMI normal, RRR Abdomen: NT/ND, soft Extremities: + femoral B - Labs Result Diagrams: 08/06/18 05:05 08/06/18 05:05 Troponin/CKMB CK-MB (CK-2) 2.3 ng/mL (0-6.6) 08/04/18 11:18 Troponin I 0.161 ng/mL (< 0.028) H 08/04/18 17:18 - Assessment/Plan Acute on chronic diastolic HF CAD s/p CABG hypoventilation syndrome Marked improvement in weight and diuresis Continue metolazone and bumex for one day then start to decrease bumex and dc metolazone Fluid restrict CPAP Na restrict
[2018-08-06] MEDS: Metolazone 5 MG TAB PO SCH (09:15)
[2018-08-06] MEDS: Potassium Chloride 20 MEQ TAB PO SCH ×2 (09:15→17:26)
[2018-08-06] MEDS: glyBURIDE 5 MG TAB PO SCH ×2 (09:15→17:26)
[2018-08-06] MEDS: Atorvastatin Calcium 20 MG TAB PO SCH ×2 (09:15→09:28)
[2018-08-06] MEDS: Allopurinol 100 MG TAB PO SCH (09:16)
[2018-08-06] MEDS: Ubidecarenone 50 MG CAP PO SCH (10:42)
[2018-08-06] MEDS: HumaLOG 300 UNITS/3 ML VIAL SC PRN ×2 (10:44→17:26)
--- NOTE | 2018-08-06 10:47 | PDOC.PN ---
- Subjective Encounter Start Date: 08/06/18 Encounter Start Time: 08:50 Patient seen and examined. No new complaints. No overnight events - Objective Resuscitation Status: Resuscitation Status FULL:Full Resuscitation MAR Reviewed: Yes Vital Signs & Weight: Vital Signs (12 hours) Temp Pulse Resp BP Pulse Ox 08/06/18 08:00 98.4 F 102 H 22 H 112/59 L 98 08/06/18 06:49 75 16 86 L 08/06/18 06:46 78 18 86 L 08/06/18 04:00 98.5 F 96 20 111/65 94 L 08/06/18 00:00 98.2 F 104 H 16 90/53 L 96 08/05/18 23:19 97 Weight Weight 261 lb 1.6 oz I&O: 08/05/18 08/06/18 08/07/18 06:59 06:59 06:59 Intake Total 360 730 Output Total 600 4885 Balance -240 -1262 Result Diagrams: 08/06/18 05:05 08/06/18 05:05 Additional Labs: Accuchecks 08/06/18 08/05/18 08/05/18 01:13 21:21 16:52 POC Glucose 137 H 105 306 H 08/05/18 10:49 POC Glucose 170 H Radiology Reviewed by me: Yes (echo report reviewed) EKG Reviewed by me: Yes (nsr) Phys Exam - Physical Examination Constitutional: NAD HEENT: PERRLA, moist MMs, sclera anicteric Neck: no nodes, supple, full ROM Respiratory: no wheezing, no rales, no rhonchi Cardiovascular: RRR, no rub SM+ Gastrointestinal: soft, non-tender, positive bowel sounds ascites+ Musculoskeletal: pulses present, edema present Neurological: non-focal, normal sensation, moves all 4 limbs Psychiatric: normal affect, A&O x 3 Skin: no rash, normal turgor Dx/Plan (1) Acute on chronic diastolic ACC/AHA stage C congestive heart failure Code(s): I50.33 - ACUTE ON CHRONIC DIASTOLIC (CONGESTIVE) HEART FAILURE Status : Acute (2) Acute on chronic respiratory failure with hypoxia Code(s): J96.21 - ACUTE AND CHRONIC RESPIRATORY FAILURE WITH HYPOXIA Status: Acute (3) Anasarca Code(s): R60.1 - GENERALIZED EDEMA Status: Acute (4) Ascites Code(s): R18.8 - OTHER ASCITES Status: Acute (5) Hyperuricemia Code(s): E79.0 - HYPERURICEMIA W/O SIGNS OF INFLAM ARTHRIT AND TOPHACEOUS DIS Status: Acute (6) CAD (coronary artery disease) Code(s): I25.10 - ATHSCL HEART DISEASE OF [place] CORONARY ARTERY W/O ANG PCTRS Status: Chronic Comment: (7) CKD (chronic kidney disease) stage 3, GFR 30-59 ml/min Code(s): N18.3 - CHRONIC KIDNEY DISEASE, STAGE 3 (MODERATE) Status: Chronic (8) Chronic anticoagulation Code(s): Z79.01 - [facility] (CURRENT) USE OF ANTICOAGULANTS Status: Chronic (9) DM2 (diabetes mellitus, type 2) Status: Chronic Comment: (10) Dyslipidemia Code(s): E78.5 - HYPERLIPIDEMIA, UNSPECIFIED Status: Chronic Comment: (11) HTN (hypertension) Code(s): I10 - ESSENTIAL (PRIMARY) HYPERTENSION Status: Chronic Comment: (12) Obesity (BMI 30-39.9) Code(s): E66.9 - OBESITY, UNSPECIFIED Status: Chronic (13) PAF (paroxysmal atrial fibrillation) Code(s): I48.0 - PAROXYSMAL ATRIAL FIBRILLATION Status: Chronic (14) Hypokalemia Code(s): E87.6 - HYPOKALEMIA Status: Acute (15) Moderate tricuspid regurgitation Code(s): I07.1 - RHEUMATIC TRICUSPID INSUFFICIENCY Status: Chronic (16) Pulmonary hypertension Code(s): I27.20 - PULMONARY HYPERTENSION, UNSPECIFIED Status: Chronic - Plan cont current plan of care, plan discussed w/ family * discussed with family * discussed with his PCP * continue replacing potassium * continue diuresis as ordered * will need several days to make him euvolemic * medication reviewed as below * symptomatic treatment. Review of Systems - Review of Systems Constitutional: negative: fever, chills, sweats, weakness, malaise, other Eyes: negative: Pain, Vision Change, Conjunctivae Inflammation, Eyelid Inflammation, Redness, Other ENT: negative: Ear Pain, Ear Discharge, Nose Pain, Nose Discharge, Nose Congestion, Mouth Pain, Mouth Swelling, Throat Pain, Throat Swelling, Other Respiratory: Shortness of Breath, SOB with Excertion. negative: Cough, Dry, Hemoptysis, Pleuritic Pain, Sputum, Wheezing Cardiovascular: edema. negative: chest pain, palpitations, orthopnea, paroxysmal nocturnal dyspnea, light headedness, other Gastrointestinal: negative: Nausea, Vomiting, Abdominal Pain, Diarrhea, Constipation, Melena, Hematochezia, Other Genitourinary: negative: Dysuria, Frequency, Incontinence, Hematuria, Retention , Other Musculoskeletal: negative: Neck Pain, Shoulder Pain, Arm Pain, Back Pain, Hand Pain, Leg Pain, Foot Pain, Other - Medications/Allergies Allergies/Adverse Reactions: Allergies Allergy/AdvReac Type Severity Reaction Status Date / Time furosemide Allergy Verified 08/04/18 20:57 vancomycin Allergy Verified 08/04/18 15:47 Medications: Current Medications Acetaminophen (Tylenol) 650 mg PO Q4H PRN PRN Reason: Headache/Fever or Pain Hydrocodone Bitart/Acetaminophen ([place] 5/325) 1 tab PO Q4H PRN PRN Reason: Moderate Pain (4-6) Al Hydroxide/Mg Hydroxide (Maalox) 30 ml PO Q6H PRN PRN Reason: Heartburn or Indigestion Albuterol/Ipratropium (Duoneb) 3 ml NEB [id number] PRN PRN Reason: SOB &/or Wheezing Last Admin: 08/04/18 19:01 Dose: 3 ml Albuterol/Ipratropium (Duoneb) 3 ml NEB [id number] [facility] Last Admin: 08/06/18 06:49 Dose: 3 ml Allopurinol (Zyloprim) 100 mg PO DAILY [facility] Last Admin: 08/06/18 09:16 Dose: 100 mg Artificial Tears (Tears Naturale) 0 drop EA EYE PRN PRN PRN Reason: Dry Eyes Aspirin (Aspirin Chewable) 81 mg PO DAILY [facility] Last Admin: 08/06/18 09:16 Dose: 81 mg Atorvastatin Calcium (Lipitor) 20 mg PO DAILY [facility] Last Admin: 08/06/18 09:28 Dose: Not Given Bumetanide (Bumex) 2 mg IVP 0600,1400 [facility] Last Admin: 08/06/18 06:19 Dose: 2 mg Coenzyme Q10 (Coenzyme Q10) 400 mg PO DAILY [facility] Last Admin: 08/06/18 10:42 Dose: 400 mg Dextrose/Water (Dextrose 50%) 25 gm SLOW IVP PRN PRN PRN Reason: Hypoglycemia Glucagon (Glucagon) 1 mg IM PRN PRN PRN Reason: Hypoglycemia Glyburide (Diabeta) 5 mg PO BID-[facility] Last Admin: 08/06/18 09:15 Dose: 5 mg Guaifenesin (Robitussin Sf) 200 mg PO Q4H PRN PRN Reason: Cough Hydralazine HCl (Apresoline) 10 mg SLOW IVP Q4H PRN PRN Reason: Systolic BP > 180 Dextrose/Water (D5w) 1,000 mls @ 0 mls/hr IV .Q0M PRN PRN Reason: Hypoglycemia Insulin Glargine 10 units/ (Miscellaneous Medication) 0.1 mls @ 0 mls/hr SC [facility] Last Admin: 08/05/18 21:07 Dose: Not Given Insulin Human Lispro (Humalog) 0 units SC .MODERATE SLIDING SC PRN PRN Reason: Moderate Correctional Scale Last Admin: 08/05/18 17:12 Dose: 8 units Insulin Human Lispro (Humalog) 0 units SC .BEDTIME SLIDING SC PRN PRN Reason: Bedtime Correctional Scale Loperamide HCl (Imodium) 2 mg PO PRN PRN PRN Reason: Diarrhea/Loose Stools Loratadine (Claritin) 10 mg PO DAILYPRN PRN PRN Reason: Sinus Symptoms Magnesium Hydroxide (Milk Of Magnesium) 30 ml PO DAILYPRN PRN PRN Reason: Constipation Metolazone (Zaroxolyn) 5 mg PO 0830 [facility] Last Admin: 08/06/18 09:15 Dose: 5 mg Mineral Oil/White Petrolatum (Eucerin Cream) 0 gm TOP BIDPRN PRN PRN Reason: Dry Skin Mometasone Furoate/Formoterol Fumar (Dulera 200 Mcg/5 Mcg Inhaler) 1 puff INH BID-RT [facility] Last Admin: 08/06/18 06:46 Dose: 1 puff Ondansetron HCl (Zofran Odt) 4 mg PO Q6H PRN PRN Reason: Nausea/Vomiting Ondansetron HCl (Zofran) 4 mg IVP Q6H PRN PRN Reason: Nausea/Vomiting Phenol (Chloraseptic [place] 180 Ml Bot) 0 ml PO PRN PRN PRN Reason: Sore Throat Potassium Chloride (K-Dur) 20 meq PO BID-[facility] Last Admin: 08/06/18 09:15 Dose: 20 meq Senna (Senokot) 2 tab PO HSPRN PRN PRN Reason: Constipation Sodium Chloride ([place] Nasal [place] 0.65%) 0 ml EA NARE QIDPRN PRN PRN Reason: Nasal Congestion Sodium Chloride (Flush - Normal Saline) 10 ml IVF Q12HR [facility] Last Admin: 08/06/18 10:43 Dose: 10 ml Sodium Chloride (Flush - Normal Saline) 10 ml IVF PRN PRN PRN Reason: Saline Flush Zolpidem Tartrate (Ambien) 5 mg PO HSPRN PRN PRN Reason: Insomnia
--- NOTE | 2018-08-06 22:01 | PRG ---
DATE OF SERVICE: 08/06/2018 SUBJECTIVE: Patient was seen and examined, seems to be responding well to oral diuretics. Patient p ut out close to 5 liters of urine over the past 24 hours and has lost about 15 pounds of fluid weight . Otherwise, patient noted with the following the vital signs. PHYSICAL EXAMINATION: VITAL SIGNS: Afebrile with temperature 98.4, pulse 98-71, respiratory rate of 16, O2 sat of 92%-97% with a blood pressure of 91/45. HEENT EXAMINATION: Unremarkable. CARDIOVASCULAR SYSTEM: First and second heart sounds were heard. RESPIRATORY SYSTEM: Clear to auscultation. DIGESTIVE SYSTEM: Revealed a distended abdomen. EXTREMITIES: Showed 3+ peripheral edema. NEUROLOGIC: Alert, oriented. No lateralizing signs. LYMPHATICS: No peripheral lymphadenopathy. LABORATORY INVESTIGATIONS: Showed a creatinine down to 1.3, BUN of 45, potassium 3.2. IMPRESSION: 1. Hypovolemia responding to oral diuretics. 2. Likely right-sided heart failure. 3. Hypokalemia in the context of diuresis. PLAN: 1. Replete potassium. 2. Continue current diuretic regimen. 3. Once the congestive gastroenteropathy has improved, we will likely transition this patient to ora l diuretics in preparation for possible discharge. This might be possible within the next 24-48 hour s.
[2018-08-06] MEDS: Insulin Glargine 10 UNITS in Pre-Filled Syringe 1 EACH SC SCH (22:19)
[2018-08-07 05:43] LABS: INR-International Normal Ratio 2.8; Prothrombin Time 29.1 SEC (12.0-14.7)
[2018-08-07] MEDS: Bumetanide 1 MG/4 ML VIAL IVP SCH ×4 (06:31→13:57)
[2018-08-07] MEDS: Mometasone/Formoterol 120 PUFF INHALER INH SCH ×2 (06:53→19:07)
--- NOTE | 2018-08-07 08:17 | PDOC.CTH ---
Cardiology Progress Note - Subjective Doing much better today. Has lost almost 20lbs over three days. Much less edema and abdominal distention - Objective Vital Signs Temp Pulse Resp BP Pulse Ox 08/07/18 04:15 97.7 F 90 16 103/60 94 L 08/07/18 00:44 95 16 Admit Weight 274 lb 14.4 oz Weight 252 lb 08/06/18 08/07/18 08/08/18 06:59 06:59 06:59 Intake Total 730 790 Output Total 6980 4750 Balance -4155 -3960 - Physical Examination General/Neuro: alert & oriented x3, NAD Neck: carotid US brisk, no JVD present Lungs: CTA, unlabored respirations Heart: PMI normal, RRR Abdomen: no HSM, NT/ND, soft Extremities: + femoral B - Labs Result Diagrams: 08/06/18 05:05 08/06/18 05:05 Troponin/CKMB CK-MB (CK-2) 2.3 ng/mL (0-6.6) 08/04/18 11:18 Troponin I 0.161 ng/mL (< 0.028) H 08/04/18 17:18 - Assessment/Plan Acute on chronic diastolic HF CAD s/p CABG hypoventilation syndrome Continue with diuretics Change to PO likely tomorrow Check BMP Fluid restrict and Na restrict Educated on daily weights
[2018-08-07 08:57] LABS: Anion Gap 16 mmol/L (10-20); BUN (Urea Nitrogen) 49 mg/dL (8.4-25.7); Calc. Creatinine Clearance 76 mL/min (70-130); Calcium 9.8 mg/dL (7.8-10.44); Carbon Dioxide 24 mmol/L (23-31); Chloride 104 mmol/L (98-107); Estimated GFR-MDRD 51; Glucose 143 mg/dL (83-110); Potassium 3.3 mmol/L (3.5-5.1); Sodium 141 mmol/L (136-145)
[2018-08-07] MEDS: Metolazone 5 MG TAB PO SCH (09:01)
[2018-08-07] MEDS: Potassium Chloride 20 MEQ TAB PO SCH ×2 (09:01→16:53)
[2018-08-07] MEDS: glyBURIDE 5 MG TAB PO SCH ×2 (09:01→16:53)
[2018-08-07] MEDS: Ubidecarenone 50 MG CAP PO SCH (09:02)
[2018-08-07] MEDS: Allopurinol 100 MG TAB PO SCH (09:02)
[2018-08-07] MEDS: Atorvastatin Calcium 20 MG TAB PO SCH (09:03)
--- NOTE | 2018-08-07 09:29 | PDOC.PN ---
- Subjective Encounter Start Date: 08/07/18 Encounter Start Time: 08:00 Patient seen and examined. No new complaints. No overnight events pt is feeling better - Objective Resuscitation Status: Resuscitation Status FULL:Full Resuscitation MAR Reviewed: Yes Vital Signs & Weight: Vital Signs (12 hours) Temp Pulse Resp BP BP Pulse Ox 08/07/18 08:55 97.6 F 97 18 106/55 L 97 08/07/18 04:15 97.7 F 90 16 103/60 94 L 08/07/18 00:44 95 16 Weight Admit Weight 274 lb 14.4 oz Weight 252 lb I&O: 08/06/18 08/07/18 08/08/18 06:59 06:59 06:59 Intake Total 730 790 Output Total 7474 6104 Balance -7557 -4435 Result Diagrams: 08/06/18 05:05 08/07/18 05:08 Additional Labs: Accuchecks 08/07/18 08/06/18 08/06/18 02:43 20:45 17:06 POC Glucose 143 H 194 H 174 H 08/06/18 10:43 POC Glucose 235 H EKG Reviewed by me: Yes (nsr) Phys Exam - Physical Examination Constitutional: NAD HEENT: PERRLA, moist MMs, sclera anicteric Neck: no nodes, supple, full ROM Respiratory: no wheezing, no rales, no rhonchi Cardiovascular: RRR, no rub sm+ Gastrointestinal: soft, non-tender, positive bowel sounds ascites+ Musculoskeletal: pulses present, edema present Neurological: non-focal, normal sensation, moves all 4 limbs Psychiatric: normal affect, A&O x 3 Skin: no rash, normal turgor Dx/Plan (1) Acute on chronic diastolic ACC/AHA stage C congestive heart failure Code(s): I50.33 - ACUTE ON CHRONIC DIASTOLIC (CONGESTIVE) HEART FAILURE Status : Acute (2) Acute on chronic respiratory failure with hypoxia Code(s): J96.21 - ACUTE AND CHRONIC RESPIRATORY FAILURE WITH HYPOXIA Status: Acute (3) Anasarca Code(s): R60.1 - GENERALIZED EDEMA Status: Acute (4) Ascites Code(s): R18.8 - OTHER ASCITES Status: Acute (5) Hyperuricemia Code(s): E79.0 - HYPERURICEMIA W/O SIGNS OF INFLAM ARTHRIT AND TOPHACEOUS DIS Status: Acute (6) CAD (coronary artery disease) Code(s): I25.10 - ATHSCL HEART DISEASE OF [place] CORONARY ARTERY W/O ANG PCTRS Status: Chronic Comment: (7) CKD (chronic kidney disease) stage 3, GFR 30-59 ml/min Code(s): N18.3 - CHRONIC KIDNEY DISEASE, STAGE 3 (MODERATE) Status: Chronic (8) Chronic anticoagulation Code(s): Z79.01 - [facility] (CURRENT) USE OF ANTICOAGULANTS Status: Chronic (9) DM2 (diabetes mellitus, type 2) Status: Chronic Comment: (10) Dyslipidemia Code(s): E78.5 - HYPERLIPIDEMIA, UNSPECIFIED Status: Chronic Comment: (11) HTN (hypertension) Code(s): I10 - ESSENTIAL (PRIMARY) HYPERTENSION Status: Chronic Comment: (12) Obesity (BMI 30-39.9) Code(s): E66.9 - OBESITY, UNSPECIFIED Status: Chronic (13) PAF (paroxysmal atrial fibrillation) Code(s): I48.0 - PAROXYSMAL ATRIAL FIBRILLATION Status: Chronic (14) Hypokalemia Code(s): E87.6 - HYPOKALEMIA Status: Acute (15) Moderate tricuspid regurgitation Code(s): I07.1 - RHEUMATIC TRICUSPID INSUFFICIENCY Status: Chronic (16) Pulmonary hypertension Code(s): I27.20 - PULMONARY HYPERTENSION, UNSPECIFIED Status: Chronic - Plan cont current plan of care, plan discussed w/ family * continue bumex iv and zaroxolyn * replace potassium * has improvement, edema and weight reducing * medication reviewed as below * symptomatic treatment * discussed with nephrology * may be able to change oral meds tomorrow * discussed with family. Review of Systems - Review of Systems Eyes: negative: Pain, Vision Change, Conjunctivae Inflammation, Eyelid Inflammation, Redness, Other ENT: negative: Ear Pain, Ear Discharge, Nose Pain, Nose Discharge, Nose Congestion, Mouth Pain, Mouth Swelling, Throat Pain, Throat Swelling, Other Respiratory: negative: Cough, Dry, Shortness of Breath, Hemoptysis, SOB with Excertion, Pleuritic Pain, Sputum, Wheezing Cardiovascular: edema. negative: chest pain, palpitations, orthopnea, paroxysmal nocturnal dyspnea, light headedness, other Gastrointestinal: negative: Nausea, Vomiting, Abdominal Pain, Diarrhea, Constipation, Melena, Hematochezia, Other Genitourinary: negative: Dysuria, Frequency, Incontinence, Hematuria, Retention , Other Musculoskeletal: negative: Neck Pain, Shoulder Pain, Arm Pain, Back Pain, Hand Pain, Leg Pain, Foot Pain, Other - Medications/Allergies Allergies/Adverse Reactions: Allergies Allergy/AdvReac Type Severity Reaction Status Date / Time furosemide Allergy Verified 08/04/18 20:57 vancomycin Allergy Verified 08/04/18 15:47 Medications: Current Medications Acetaminophen (Tylenol) 650 mg PO Q4H PRN PRN Reason: Headache/Fever or Pain Hydrocodone Bitart/Acetaminophen ([place] 5/325) 1 tab PO Q4H PRN PRN Reason: Moderate Pain (4-6) Al Hydroxide/Mg Hydroxide (Maalox) 30 ml PO Q6H PRN PRN Reason: Heartburn or Indigestion Albuterol/Ipratropium (Duoneb) 3 ml NEB [id number] PRN PRN Reason: SOB &/or Wheezing Last Admin: 08/04/18 19:01 Dose: 3 ml Albuterol/Ipratropium (Duoneb) 3 ml NEB [id number] [facility] Last Admin: 08/07/18 06:54 Dose: Not Given Allopurinol (Zyloprim) 100 mg PO DAILY [facility] Last Admin: 08/07/18 09:02 Dose: 100 mg Artificial Tears (Tears Naturale) 0 drop EA EYE PRN PRN PRN Reason: Dry Eyes Aspirin (Aspirin Chewable) 81 mg PO DAILY [facility] Last Admin: 08/07/18 09:02 Dose: 81 mg Atorvastatin Calcium (Lipitor) 20 mg PO DAILY [facility] Last Admin: 08/07/18 09:03 Dose: Not Given Bumetanide (Bumex) 2 mg IVP 0900,1400 [facility] Last Admin: 08/07/18 09:03 Dose: 2 mg Coenzyme Q10 (Coenzyme Q10) 400 mg PO DAILY [facility] Last Admin: 08/07/18 09:02 Dose: 400 mg Dextrose/Water (Dextrose 50%) 25 gm SLOW IVP PRN PRN PRN Reason: Hypoglycemia Glucagon (Glucagon) 1 mg IM PRN PRN PRN Reason: Hypoglycemia Glyburide (Diabeta) 5 mg PO BID-[facility] Last Admin: 08/07/18 09:01 Dose: 5 mg Guaifenesin (Robitussin Sf) 200 mg PO Q4H PRN PRN Reason: Cough Hydralazine HCl (Apresoline) 10 mg SLOW IVP Q4H PRN PRN Reason: Systolic BP > 180 Dextrose/Water (D5w) 1,000 mls @ 0 mls/hr IV .Q0M PRN PRN Reason: Hypoglycemia Insulin Glargine 10 units/ (Miscellaneous Medication) 0.1 mls @ 0 mls/hr SC [facility] Last Admin: 08/06/18 22:19 Dose: Not Given Insulin Human Lispro (Humalog) 0 units SC .MODERATE SLIDING SC PRN PRN Reason: Moderate Correctional Scale Last Admin: 08/06/18 17:26 Dose: 2 units Insulin Human Lispro (Humalog) 0 units SC .BEDTIME SLIDING SC PRN PRN Reason: Bedtime Correctional Scale Loperamide HCl (Imodium) 2 mg PO PRN PRN PRN Reason: Diarrhea/Loose Stools Loratadine (Claritin) 10 mg PO DAILYPRN PRN PRN Reason: Sinus Symptoms Magnesium Hydroxide (Milk Of Magnesium) 30 ml PO DAILYPRN PRN PRN Reason: Constipation Metolazone (Zaroxolyn) 5 mg PO 0800 [facility] Last Admin: 08/07/18 09:01 Dose: 5 mg Mineral Oil/White Petrolatum (Eucerin Cream) 0 gm TOP BIDPRN PRN PRN Reason: Dry Skin Mometasone Furoate/Formoterol Fumar (Dulera 200 Mcg/5 Mcg Inhaler) 1 puff INH BID-RT [facility] Last Admin: 08/07/18 06:53 Dose: Not Given Ondansetron HCl (Zofran Odt) 4 mg PO Q6H PRN PRN Reason: Nausea/Vomiting Ondansetron HCl (Zofran) 4 mg IVP Q6H PRN PRN Reason: Nausea/Vomiting Phenol (Chloraseptic [place] 180 Ml Bot) 0 ml PO PRN PRN PRN Reason: Sore Throat Potassium Chloride (K-Dur) 20 meq PO BID-[facility] Last Admin: 08/07/18 09:01 Dose: 20 meq Senna (Senokot) 2 tab PO HSPRN PRN PRN Reason: Constipation Sodium Chloride ([place] Nasal [place] 0.65%) 0 ml EA NARE QIDPRN PRN PRN Reason: Nasal Congestion Sodium Chloride (Flush - Normal Saline) 10 ml IVF Q12HR [facility] Last Admin: 08/07/18 09:07 Dose: 10 ml Sodium Chloride (Flush - Normal Saline) 10 ml IVF PRN PRN PRN Reason: Saline Flush Zolpidem Tartrate (Ambien) 5 mg PO HSPRN PRN PRN Reason: Insomnia
[2018-08-07] MEDS: Insulin Glargine 10 UNITS in Pre-Filled Syringe 1 EACH SC SCH (22:18)
[2018-08-08 05:38] LABS: INR-International Normal Ratio 2.5; Prothrombin Time 27.2 SEC (12.0-14.7)
[2018-08-08 05:56] LABS: Anion Gap 16 mmol/L (10-20); BUN (Urea Nitrogen) 53 mg/dL (8.4-25.7); Calc. Creatinine Clearance 76 mL/min (70-130); Calcium 9.8 mg/dL (7.8-10.44); Carbon Dioxide 26 mmol/L (23-31); Chloride 104 mmol/L (98-107); Estimated GFR-MDRD 50; Glucose 150 mg/dL (83-110); Potassium 3.1 mmol/L (3.5-5.1); Sodium 143 mmol/L (136-145)
[2018-08-08] MEDS: Mometasone/Formoterol 120 PUFF INHALER INH SCH ×2 (07:04→19:59)
[2018-08-08] MEDS: Allopurinol 100 MG TAB PO SCH (08:33)
[2018-08-08] MEDS: Metolazone 5 MG TAB PO SCH (08:33)
[2018-08-08] MEDS: glyBURIDE 5 MG TAB PO SCH ×2 (08:33→16:54)
[2018-08-08] MEDS: Potassium Chloride 20 MEQ TAB PO SCH ×4 (08:34→16:55)
[2018-08-08] MEDS: Ubidecarenone 50 MG CAP PO SCH (08:34)
[2018-08-08] MEDS: Atorvastatin Calcium 20 MG TAB PO SCH ×2 (08:34→08:48)
--- NOTE | 2018-08-08 11:36 | PDOC.PN ---
- Subjective Encounter Start Date: 08/08/18 Encounter Start Time: 08:00 Patient seen and examined. No new complaints. No overnight events - Objective Resuscitation Status: Resuscitation Status FULL:Full Resuscitation MAR Reviewed: Yes Vital Signs & Weight: Vital Signs (12 hours) Temp Pulse Resp BP Pulse Ox 08/08/18 08:27 97.7 F 98 18 119/63 94 L 08/08/18 07:05 90 16 08/08/18 04:00 98.9 F 98 16 87/50 L 08/08/18 02:31 91 L 08/08/18 00:02 99 16 08/08/18 00:00 98.9 F 99 17 89/53 L Weight Admit Weight 274 lb 14.4 oz Weight 242 lb I&O: 08/07/18 08/08/18 08/09/18 06:59 06:59 06:59 Intake Total 790 620 Output Total 4750 4150 Balance -8450 -0629 Result Diagrams: 08/06/18 05:05 08/08/18 05:23 Additional Labs: Accuchecks 08/08/18 08/07/18 08/07/18 06:02 20:20 17:16 POC Glucose 161 H 175 H 164 H 08/06/18 06:08 POC Glucose 120 H EKG Reviewed by me: Yes (nsr) Phys Exam - Physical Examination Constitutional: NAD HEENT: PERRLA, moist MMs, sclera anicteric Neck: no JVD, supple Respiratory: no wheezing, no rales, no rhonchi Cardiovascular: RRR, no significant murmur, no rub Gastrointestinal: soft, positive bowel sounds ascites+ Musculoskeletal: pulses present, edema present Neurological: non-focal, normal sensation, moves all 4 limbs Lymphatic: no nodes Psychiatric: normal affect, A&O x 3 Skin: no rash, normal turgor Dx/Plan (1) Acute on chronic diastolic ACC/AHA stage C congestive heart failure Code(s): I50.33 - ACUTE ON CHRONIC DIASTOLIC (CONGESTIVE) HEART FAILURE Status : Acute (2) Acute on chronic respiratory failure with hypoxia Code(s): J96.21 - ACUTE AND CHRONIC RESPIRATORY FAILURE WITH HYPOXIA Status: Acute (3) Anasarca Code(s): R60.1 - GENERALIZED EDEMA Status: Acute (4) Ascites Code(s): R18.8 - OTHER ASCITES Status: Acute (5) Hyperuricemia Code(s): E79.0 - HYPERURICEMIA W/O SIGNS OF INFLAM ARTHRIT AND TOPHACEOUS DIS Status: Acute (6) CAD (coronary artery disease) Code(s): I25.10 - ATHSCL HEART DISEASE OF [place] CORONARY ARTERY W/O ANG PCTRS Status: Chronic Comment: (7) CKD (chronic kidney disease) stage 3, GFR 30-59 ml/min Code(s): N18.3 - CHRONIC KIDNEY DISEASE, STAGE 3 (MODERATE) Status: Chronic (8) Chronic anticoagulation Code(s): Z79.01 - LONG-TERM (CURRENT) USE OF ANTICOAGULANTS Status: Chronic (9) DM2 (diabetes mellitus, type 2) Status: Chronic Comment: (10) Dyslipidemia Code(s): E78.5 - HYPERLIPIDEMIA, UNSPECIFIED Status: Chronic Comment: (11) HTN (hypertension) Code(s): I10 - ESSENTIAL (PRIMARY) HYPERTENSION Status: Chronic Comment: (12) Obesity (BMI 30-39.9) Code(s): E66.9 - OBESITY, UNSPECIFIED Status: Chronic (13) PAF (paroxysmal atrial fibrillation) Code(s): I48.0 - PAROXYSMAL ATRIAL FIBRILLATION Status: Chronic (14) Hypokalemia Code(s): E87.6 - HYPOKALEMIA Status: Acute (15) Moderate tricuspid regurgitation Code(s): I07.1 - RHEUMATIC TRICUSPID INSUFFICIENCY Status: Chronic (16) Pulmonary hypertension Code(s): I27.20 - PULMONARY HYPERTENSION, UNSPECIFIED Status: Chronic - Plan cont current plan of care, plan discussed w/ family * he still has lot leg edema, he still has ascites, today medication changed to oral, now creatinine is also rising * will see how he does * he is interested in paracentesis, will ask nephrology to comment on that * INR is improving * repeat labs tomorrow * medication reviewed as below * symptomatic treatment. Review of Systems - Review of Systems Eyes: negative: Pain, Vision Change, Conjunctivae Inflammation, Eyelid Inflammation, Redness, Other ENT: negative: Ear Pain, Ear Discharge, Nose Pain, Nose Discharge, Nose Congestion, Mouth Pain, Mouth Swelling, Throat Pain, Throat Swelling, Other Respiratory: negative: Cough, Dry, Shortness of Breath, Hemoptysis, SOB with Excertion, Pleuritic Pain, Sputum, Wheezing Cardiovascular: edema. negative: chest pain, palpitations, orthopnea, paroxysmal nocturnal dyspnea, light headedness, other Gastrointestinal: negative: Nausea, Vomiting, Abdominal Pain, Diarrhea, Constipation, Melena, Hematochezia, Other Genitourinary: negative: Dysuria, Frequency, Incontinence, Hematuria, Retention , Other Musculoskeletal: negative: Neck Pain, Shoulder Pain, Arm Pain, Back Pain, Hand Pain, Leg Pain, Foot Pain, Other Skin: negative: Rash, Lesions, Jovani, Bruising, Other - Medications/Allergies Allergies/Adverse Reactions: Allergies Allergy/AdvReac Type Severity Reaction Status Date / Time furosemide Allergy Verified 08/04/18 20:57 vancomycin Allergy Verified 08/04/18 15:47 Medications: Current Medications Acetaminophen (Tylenol) 650 mg PO Q4H PRN PRN Reason: Headache/Fever or Pain Hydrocodone Bitart/Acetaminophen ([place] 5/325) 1 tab PO Q4H PRN PRN Reason: Moderate Pain (4-6) Al Hydroxide/Mg Hydroxide (Maalox) 30 ml PO Q6H PRN PRN Reason: Heartburn or Indigestion Albuterol/Ipratropium (Duoneb) 3 ml NEB [id number] PRN PRN Reason: SOB &/or Wheezing Last Admin: 08/07/18 14:48 Dose: 3 ml Albuterol/Ipratropium (Duoneb) 3 ml NEB [id number] Last Admin: 08/08/18 07:05 Dose: 3 ml Allopurinol (Zyloprim) 100 mg PO DAILY [facility] Last Admin: 08/08/18 08:33 Dose: 100 mg Artificial Tears (Tears Naturale) 0 drop EA EYE PRN PRN PRN Reason: Dry Eyes Aspirin (Aspirin Chewable) 81 mg PO DAILY [facility] Last Admin: 08/08/18 08:34 Dose: 81 mg Atorvastatin Calcium (Lipitor) 20 mg PO DAILY [facility] Last Admin: 08/08/18 08:48 Dose: Not Given Bumetanide (Bumex) 2 mg PO BID-[facility] Coenzyme Q10 (Coenzyme Q10) 400 mg PO DAILY [facility] Last Admin: 08/08/18 08:34 Dose: 400 mg Dextrose/Water (Dextrose 50%) 25 gm SLOW IVP PRN PRN PRN Reason: Hypoglycemia Glucagon (Glucagon) 1 mg IM PRN PRN PRN Reason: Hypoglycemia Glyburide (Diabeta) 5 mg PO BID-[facility] Last Admin: 08/08/18 08:33 Dose: 5 mg Guaifenesin (Robitussin Sf) 200 mg PO Q4H PRN PRN Reason: Cough Hydralazine HCl (Apresoline) 10 mg SLOW IVP Q4H PRN PRN Reason: Systolic BP > 180 Dextrose/Water (D5w) 1,000 mls @ 0 mls/hr IV .Q0M PRN PRN Reason: Hypoglycemia Insulin Glargine 10 units/ (Miscellaneous Medication) 0.1 mls @ 0 mls/hr SC [facility] Last Admin: 08/07/18 22:18 Dose: Not Given Insulin Human Lispro (Humalog) 0 units SC .MODERATE SLIDING SC PRN PRN Reason: Moderate Correctional Scale Last Admin: 08/06/18 17:26 Dose: 2 units Insulin Human Lispro (Humalog) 0 units SC .BEDTIME SLIDING SC PRN PRN Reason: Bedtime Correctional Scale Loperamide HCl (Imodium) 2 mg PO PRN PRN PRN Reason: Diarrhea/Loose Stools Loratadine (Claritin) 10 mg PO DAILYPRN PRN PRN Reason: Sinus Symptoms Magnesium Hydroxide (Milk Of Magnesium) 30 ml PO DAILYPRN PRN PRN Reason: Constipation Metolazone (Zaroxolyn) 5 mg PO 0800 [facility] Last Admin: 08/08/18 08:33 Dose: 5 mg Mineral Oil/White Petrolatum (Eucerin Cream) 0 gm TOP BIDPRN PRN PRN Reason: Dry Skin Mometasone Furoate/Formoterol Fumar (Dulera 200 Mcg/5 Mcg Inhaler) 1 puff INH BID-[facility] Last Admin: 08/08/18 07:04 Dose: 1 puff Ondansetron HCl (Zofran Odt) 4 mg PO Q6H PRN PRN Reason: Nausea/Vomiting Ondansetron HCl (Zofran) 4 mg IVP Q6H PRN PRN Reason: Nausea/Vomiting Phenol (Chloraseptic [place] 180 Ml Bot) 0 ml PO PRN PRN PRN Reason: Sore Throat Potassium Chloride (K-Dur) 20 meq PO BID-[facility] Last Admin: 08/08/18 08:34 Dose: 20 meq Potassium Chloride (K-Dur) 40 meq PO 0900,1700 [place] Stop: 08/08/18 17:01 Last Admin: 08/08/18 08:54 Dose: 40 meq Senna (Senokot) 2 tab PO HSPRN PRN PRN Reason: Constipation Sodium Chloride ([place] Nasal [place] 0.65%) 0 ml EA NARE QIDPRN PRN PRN Reason: Nasal Congestion Sodium Chloride (Flush - Normal Saline) 10 ml IVF Q12HR [facility] Last Admin: 08/08/18 08:35 Dose: 10 ml Sodium Chloride (Flush - Normal Saline) 10 ml IVF PRN PRN PRN Reason: Saline Flush Zolpidem Tartrate (Ambien) 5 mg PO HSPRN PRN PRN Reason: Insomnia
--- NOTE | 2018-08-08 13:58 | PDOC.CTH ---
Cardiology Progress Note - Subjective No complaints. Still diuresing and doing much better overall. - Objective Vital Signs Temp Pulse Resp BP Pulse Ox 08/08/18 12:44 90 14 08/08/18 11:40 101 H 20 94/51 L 95 08/08/18 08:27 97.7 F 98 18 119/63 94 L 08/08/18 07:05 90 16 08/08/18 04:00 98.9 F 98 16 87/50 L 08/08/18 02:31 91 L Admit Weight 274 lb 14.4 oz Weight 242 lb 08/07/18 08/08/18 08/09/18 06:59 06:59 06:59 Intake Total 790 620 Output Total 4750 4150 Balance -8110 -5970 - Physical Examination General/Neuro: alert & oriented x3 Lungs: CTA Heart: RRR Abdomen: other: (mild distention. NT) Extremities: + edema B - Telemetry Telemetry Rhythm: SR with BBB - Labs Result Diagrams: 08/06/18 05:05 08/08/18 05:23 Troponin/CKMB CK-MB (CK-2) 2.3 ng/mL (0-6.6) 08/04/18 11:18 Troponin I 0.161 ng/mL (< 0.028) H 08/04/18 17:18 - Assessment/Plan 1. Acute on chronic diastolic HF 2. CAD s/p CABG 3. Chronic hypoventilation syndrome 4. Hypokalemia 5. Paroxysmal AFib - INR therapeutic Overall he continues to diurese well. Still with significant volume overload, but responding well to diuretics. No changes to care.
[2018-08-08] MEDS: Bumetanide 1 MG TAB PO SCH (16:54)
--- NOTE | 2018-08-08 18:28 | PRG ---
DATE OF SERVICE: 08/08/2018 SUBJECTIVE: The patient is seen and examined, felt a little dizzy today, noted with the following vi cornel signs. PHYSICAL EXAMINATION: VITAL SIGNS: Afebrile with temperature 97.5, pulse 95, respiratory rate 20, O2 sat 93%, blood pressu re is 95/55. HEENT: Unremarkable. CARDIOVASCULAR: First and second heart sounds were heard. RESPIRATORY: Clear to auscultation. ABDOMEN: Digestive system revealed improved abdominal distention. EXTREMITIES: Showed 2+ bilateral lower extremity edema. LABORATORY INVESTIGATION: Revealed potassium of 3.1, BUN of 53 with a creatinine of 1.38. Input and output revealed the patient lost 10 pounds over the past 2-4 hours. Total fluid weight loss since a dmission about 32 pounds. IMPRESSION: 1. Hypervolemia in the context of problem #2. 2. Likely right-sided heart failure. 3. Chronic kidney disease stage 3. 4. Congestive gastroenteropathy. PLAN: 1. We would transition this patient over to oral diuretics and discontinue IV Bumex. 2. Continue to renally dose all medications. 3. Continue renal supportive measures. 4. Further management to be dependent on the clinical course.
[2018-08-08 19:20] LABS: Actual Bicarbonate (HCO3a) 19.6 mEq/L (22-28); Base Excess (BEa) -2.2 mEq/L (-2.0 to +3.0); CO2 Tension 26.6 mmHg (35.0-45.0); Calcium, Ionized 1.13 mmol/L (1.12-1.30); Carboxyhemoglobin (COHb) 1.9 gm% (0.0-3.0); Hemoglobin (Hb) 14.5 g/dL (14.0-18.0); O2 Tension (PaO2) 94.3 mmHg (> 70.0); Potassium - ABG Lab 4.55 mmol/L (3.70-5.30); pH, Arterial 7.49 (7.35-7.45)
[2018-08-08] MEDS ORDERED: Nitroglycerin 2% Ointment 1 INCH/1 GM Packet TOP PRN (19:22)
[2018-08-08 19:34] LABS: #Basophils 0.1 thou/uL (0.0-0.2); #Eosinphils 0.1 thou/uL (0.0-0.7); #Lymphocytes 1.5 thou/uL (1.20-3.40); #Monocytes 1.6 thou/uL (0.11-0.59); #Neutrophils 8.5 thou/uL (1.40-6.50); %Basophils 0.5 % (0.0-1.0); %Eosinophils 0.7 % (0.0-10.0); %Lymphocytes 12.6 % (21.0-51.0); %Monocytes 13.3 % (0.0-10.0); %Neutrophils 72.8 % (42.0-75.0); Mean Corpuscular HGB CONC 30.1 g/dL (32.0-36.0); Mean Corpuscular Hemoglobin 24.8 pg (27.0-31.0); Mean Corpuscular Volume 82.5 fL (78.0-98.0); Mean Platelet Volume 10.3 fL (7.4-10.4); Platelet Count 232 thou/uL (130-400); RBC Distribution Width 19.9 % (11.5-14.5); Red Blood Cell (RBC) Count 5.62 mill/uL (4.70-6.10); White Blood Cell (WBC) Count 11.7 thou/uL (4.8-10.8)
[2018-08-08 19:50] LABS: ALT (SGPT) 16 U/L (8-55); AST (SGOT) 31 U/L (5-34); Albumin 3.8 g/dL (3.4-4.8); Alkaline Phosphatase 114 U/L (40-150); Anion Gap 22 mmol/L (10-20); BUN (Urea Nitrogen) 56 mg/dL (8.4-25.7); Bilirubin, Total 2.9 mg/dL (0.2-1.2); Calc. Creatinine Clearance 58 mL/min (70-130); Calcium 9.5 mg/dL (7.8-10.44); Carbon Dioxide 18 mmol/L (23-31); Chloride 105 mmol/L (98-107); Estimated GFR-MDRD 39; Globulin 3.5 g/dL (2.4-3.5); Glucose 205 mg/dL (83-110); Potassium 4.9 mmol/L (3.5-5.1); Protein, Total 7.3 g/dL (5.8-8.1); Sodium 140 mmol/L (136-145)
[2018-08-08 19:53] LABS: CKMB 2.5 ng/mL (0-6.6)
[2018-08-08 19:54] LABS: Troponin I 0.536 ng/mL (< 0.028)
--- NOTE | 2018-08-08 20:11 | RAD ---
RADIOGRAPH CHEST 1 VIEW: Date: 08/08/18 Time: 6:49 p.m. HISTORY: 73-year-old male with dyspnea. COMPARISON: 08/04/18. FINDINGS: The patient is rotated to the right. Sternotomy wires are noted. No pulmonary edema identified. The v isualized portions of the left lung are grossly clear. Defibrillation paddle is now present overlying the left lateral chest and left central chest. The visualized portions of the right lung are grossly clear. No pneumothorax. No major interval change, other than the new defibrillation paddles. IMPRESSION: 1. Evidence for previous open heart surgery. 2. No acute pulmonary findings. ANDRES [] POS: STEFANIA
--- NOTE | 2018-08-08 21:23 | PDOC.EVN ---
Event Note - Event Note Event Note: Chel Burton called for Hypoxia and peripheral cyanosis. Poor read for O2 sats and BP despite multiple attempts. pt seen and examined. Discussed w Nephrology at bedside. Discussed w [facility] PCCM DR Harvinder FRANCIS B/L.RRR Cyanosis of fingers,ear lobes noted. Pt is AAOX3 but very anxious.Tachypnea noted Pt stabilized w NRB initially and then moved to IMCU to start Bipap. CXR,EKG unremarkable.ABG on 100% NRB looks WNL. Unclear etiology. will check stat labs and follow. INR therapeutic.
[2018-08-08 21:31] LABS: Critical Call Chem Troponin I RESULT DECREASING; Troponin I 0.486 ng/mL (< 0.028)
[2018-08-08] MEDS: Insulin Glargine 10 UNITS in Pre-Filled Syringe 1 EACH SC SCH (21:49)
--- NOTE | 2018-08-09 00:52 | CON ---
DATE OF CONSULTATION: 08/08/2018 SERVICE: Pulmonary Medicine. REASON FOR CONSULTATION: Respiratory failure. HISTORY OF PRESENT ILLNESS: Patient is a 73-year-old white male with a history of heart failure who presented to the hospital with a 2-3 day history of feeling lousy. He had nonspecific symptoms including headache, and some myalgia. He presented to the emergency department and was discovered to be somewhat volume overloaded with anasarca, belly swelling, lower extremity edema , and crackles. He was admitted to the hospital and initiated on some Lasix. His breathing improved over the last several days. Since he has been in the hospital, some of the myalgias and headaches have improved a little bit. His breathing improved as well. I was until today when he started having increasing shortness of breath that started shortly after he got his IV Bumex. He was cyanotic. He was subsequently moved to the [facility] and initiated on BiPAP. After being started on BiPAP, he settled down to a significant degree. He denies any cough, fevers, chills, nausea, or vomiting. He has not had any significant diarrhea. He was tolerating p.o. today. Otherwise, there has been no interval change to his condition since he has been here. PAST MEDICAL HISTORY: 1. Coronary artery disease. 2. Atrial fibrillation, paroxysmal. 3. Hypertension. 4. Dyslipidemia. 5. Type 2, diabetes mellitus. 6. Chronic kidney disease, stage 3. 7. Dyslipidemia. 8. Pulmonary hypertension, multifactorial. 9. Chronic diastolic heart failure. 10. Chronic obstructive pulmonary disease. PAST SURGICAL HISTORY: 1. Coronary artery bypass graft x6 vessels. 2. Pilonidal cyst excision. SOCIAL HISTORY: Negative for current alcohol, tobacco, or illicit drug use. He has greater than a [id number] history of smoking, but quit in 2010. He also used to drink heavily, several years ago, but has also given this. He denies any street drugs. There is no exposure to chemicals, dust, asbestos, or tuberculosis. He is occasion by . FAMILY HISTORY: Noncontributory. ALLERGIES: No known drug allergies. MEDICATIONS: List of his inpatient medications were reviewed. No specific updates were made at this time. REVIEW OF SYSTEMS: General, head, ears, eyes, nose, throat, cardiovascular, respiratory, GI, , musculoskeletal, neurologic and skin is negative except as mentioned in the HPI. PHYSICAL EXAMINATION: VITAL SIGNS: Afebrile, pulse 111, blood pressure 199/71, respirations 33, saturation 96% on BiPAP. GENERAL: Patient is awake, alert. He is talking in full sentences and no longer using accessory muscles. He is currently wearing BiPAP comfortably. HEENT: Normocephalic, atraumatic. Sclerae white, conjunctivae pink. Oral and nasal mucosa is moist without lesions. LUNGS: Decent air entry bilaterally. Crackles are present. There is a slightly prolonged expiratory phase, but I do not hear excessive wheezing or rhonchi present. HEART: Normal rate, regular. ABDOMEN: Soft, nontender, nondistended. Bowel sounds are positive. MUSCULOSKELETAL: No cyanosis or clubbing. There is diffuse 2-3+ pitting throughout. GENITOURINARY: Hernandez catheter in place. NEUROLOGIC: Grossly nonfocal. LABORATORY DATA: WBC 11.7, hemoglobin 14.0, platelets 232,000. INR 2.5. PH 7.49, pCO2 of 26, pO2 of 94. This was done on a 100% nonrebreather. Creatinine 1.73 and gently up trending. Basic metabolic profile is otherwise unremarkable. Liver function studies are unremarkable. Cardiac enzymes are down trending. BNP 1800, which is trending upward. Blood cultures x4 and urine culture remain negative. IMAGING: Chest x-ray demonstrates asymmetric alveolar and interstitial opacifications are scattered throughout the right lung zone. There is cephalization on the left, consistent with possible pulmonary vascular congestion. Right pleural parenchymal disease at the bases present, possibly suggestive of an effusion. Echocardiogram demonstrates normal ejection fraction. The RV is moderately enlarged, the left atrium is moderately dilated. Moderate mitral regurgitation is noted. There is also moderate tricuspid regurgitation with elevated pulmonary artery pressures. Previous CT of the abdomen and pelvis demonstrated interstitial fullness and small bilateral pleural effusions. There is also moderate ascites throughout the abdomen. ASSESSMENT: 1. Acute hypoxic respiratory failure. 2. Pulmonary hypertension, likely multifactorial. 3. Acute on chronic diastolic and valvular heart failure. 4. Chronic obstructive pulmonary disease without current exacerbation. DISCUSSION AND PLAN: I will continue to diurese the patient until he returns close to the euvolemia. If we find a challenging to diurese him, an ionotropic agent could be considered. I have titrated BiPAP at bedside in order to maximize comfort for this patient. At this point, I have a very low suspicion for a pulmonary embolism, particularly since he has been therapeutic on his Coumadin since being here. He probably had a small amount of atelectasis associated with these effusions that resolved shortly, very briefly after being placed on positive pressure ventilation. His is now off the nonrebreather and his FIO2 is already down to below 30%. As such, my suspicion is that we are not dealing with a pulmonary embolism. I will put the CT of the chest on hold for the time being, but in the morning, if the patient fails to continue to titrate off his oxygen, we may reconsider this. I will notify Dr. Cartagena this patient has arrived and as he previously established a relationship with this patient. 70 minutes have been devoted to this patient in various activities. I personally reviewed all imaging studies and laboratory data noted within this document. For fifty percent of this time, I was interacting with the patient at the bedside or coordinating care with the care team. For the remainder of the time I was immediately available to the patient in the hospital unit. SHABBIR
[2018-08-09 00:59] LABS: Troponin I 0.592 ng/mL (< 0.028)
[2018-08-09 04:30] LABS: Anion Gap 21 mmol/L (10-20); BUN (Urea Nitrogen) 59 mg/dL (8.4-25.7); Calc. Creatinine Clearance 47 mL/min (70-130); Calcium 9.7 mg/dL (7.8-10.44); Carbon Dioxide 21 mmol/L (23-31); Chloride 105 mmol/L (98-107); Estimated GFR-MDRD 31; Glucose 181 mg/dL (83-110); Magnesium 1.9 mg/dL (1.6-2.6); Potassium 5.2 mmol/L (3.5-5.1); Sodium 142 mmol/L (136-145)
[2018-08-09 05:02] LABS: INR-International Normal Ratio 2.5; Prothrombin Time 27.2 SEC (12.0-14.7)
--- NOTE | 2018-08-09 08:17 | PRG ---
DATE OF SERVICE: 08/09/2018 Thirty-five minutes critical care time. The patient remains on BiPAP in the CCU. He has done reasonably well overnight. PHYSICAL EXAMINATION: VITAL SIGNS: Temperature 98.3, pulse 101, respirations 20, O2 sat 93%, 95% on BiPAP, blood pressure running systolic 80s-90s, diastolic 50-70s. 24 hour intake 620, output 4150, weight 232 pounds. HEENT: Unremarkable. NECK: No JVD. LUNGS: A few crackles in the bases. CARDIAC: S1 and S2 regular. ABDOMEN: Distended. EXTREMITIES: 3+ edema from the knees downward. LABORATORY DATA: Sodium 142, potassium 5.2, chloride 105, CO2 21. BNP 59, creatinine 2.1, glucose 1 81. White blood cell count 11.7, hematocrit 46.4, platelet count 232. ASSESSMENT: 1. Congestive heart failure - acute diastolic. 2. Pulmonary hypertension which I assume is probably from diastolic cardiac dysfunction. 3. History of mild chronic obstructive pulmonary disease. RECOMMENDATIONS: 1. Try high flow O2 and stop the BiPAP. 2. Continue the diuresis. 3. I would not pursue any type of workup for pulmonary emboli given the patient is therapeutic on an ticoagulation. 4. Prognosis in this case is quite poor.
[2018-08-09] MEDS: Mometasone/Formoterol 120 PUFF INHALER INH SCH ×2 (08:23→18:42)
[2018-08-09] MEDS: Potassium Chloride 20 MEQ TAB PO SCH ×2 (09:31→18:24)
[2018-08-09] MEDS: Metolazone 5 MG TAB PO SCH (09:31)
[2018-08-09] MEDS: glyBURIDE 5 MG TAB PO SCH ×2 (09:31→17:52)
[2018-08-09] MEDS: Atorvastatin Calcium 20 MG TAB PO SCH (09:32)
[2018-08-09] MEDS: Allopurinol 100 MG TAB PO SCH (09:32)
--- NOTE | 2018-08-09 10:04 | PRG ---
DATE OF SERVICE: 08/09/2018 SUBJECTIVE: The patient reports he is feeling like he is breathing much better today than he was yes terday. He has not voided since yesterday afternoon. He is presently not interested in eating much. Yesterday, he had an episode in which the food tray smell caused him some nausea and dry heaving, w hich resulted in the [facility] being called. OBJECTIVE: VITAL SIGNS: Temperature is 97.6, pulse 90, respirations 28, O2 sat 94% on 40% high flow nasal cannu la, BP this morning ranging from 87/51 to 103/63. GENERAL APPEARANCE: Age appropriate male. He appears to be tachypneic and slightly uncomfortable, a lthough he is conversant and pleasant. He has a general dusky skin tone. He has a slight jaundice. HEENT: He has jaundiced sclerae. No OP lesions. NECK: Reveals substantial JVD to the jaw line. CARDIOVASCULAR: Heart has a slight hyperdynamic motion with a murmur at the left lower sternal borde r. LUNGS: Diminished throughout, but I hear no rales at the moment. ABDOMEN: Soft, flaccid, nontender, nondistended. EXTREMITIES: Reveal 3-4+ edema both lower extremities up to the level of the knee with some chronic erythematous changes noted especially on the right. LABORATORY DATA: Sodium 142, potassium 5.2, BUN is 59, creatinine is 2.12, glucose was 170, calcium 9.7, magnesium 1.9. IMPRESSION AND PLAN: 1. Congestive heart failure, likely primarily diastolic. He continues to be diuresed. He was switc hed yesterday to oral diuretics. At this point, it appears that he has not voided since yesterday af ternoon and has no urge to void presently. 2. Oliguria. The patient has not voided since yesterday afternoon. Obtaining bladder scan to deter mine if he has an obstruction in light of his decreased voiding and his bump in creatinine. 3. Pulmonary hypertension. The patient's echo is difficult to read, but has a dilated right ventric le and some elevated pulmonary pressures. Suspect he does have significant pulmonary hypertension wi th some cor pulmonale. 4. Peripheral edema secondary to the above. Continuing to diurese as possible. The patient has diu resed over 12 liters and 30-40 pounds, yet he continues to have substantial amount of peripheral umesh a. 5. Renal: The patient has elevation of his creatinine today. His BUN has been trending upward as w ell with the diuresis. Followed by Nephrology. A complicated situation to manage his chronic kidney disease stage 3 with some increasing numbers while needing to aggressively diurese because of the he art failure. 6. Ascites; dramatically improved. 7. Coronary artery disease, stable. 8. Chronic anticoagulation, stable coags. 9. Diabetes mellitus, reasonably well controlled. 10. Dyslipidemia, stable. 11. Hypertension. The patient has been hypotensive throughout his stay here making it challenging t o adequately aggressively diurese him. 12. History of paroxysmal atrial fibrillation on anticoagulation. 13. Hyperkalemia. We will address that once we see if the patient is simply not making urine or if he is obstructed. 14. History of tricuspid regurgitation. 15. Hyperbilirubinemia, suspect related to right heart failure and some passive liver congestion. DISPOSITION: The patient has been aggressively diuresed and continued to have substantial amount of peripheral edema. His renal function and blood pressure are limiting the ability to be persistently aggressive in managing these. He was initially planning on getting some paracentesis, but his abdome n appears to be substantially improved. Does not appear there is enough ascites there to consider pa racentesis at this point. The patient's prognosis is poor given the multiple complicated medical issues.
[2018-08-09] MEDS: Bumetanide 1 MG TAB PO SCH (10:25)
[2018-08-09] MEDS: Ubidecarenone 50 MG CAP PO SCH (11:27)
--- NOTE | 2018-08-09 14:03 | PRG ---
DATE OF SERVICE: 08/09/2018 SUBJECTIVE: The patient was seen and examined, seems to be doing much better today noted with the fo llowing vital signs. PHYSICAL EXAMINATION: VITAL SIGNS: Afebrile, temperature 97.7, pulse 94, respirations 24, O2 sat y high flow nasal ca nnula, blood pressure 105/68. HEENT: Remarkable for high flow nasal cannula in place. CARDIOVASCULAR: First and second heart sounds were heard. RESPIRATORY: Clear to auscultation bilaterally. DIGESTIVE SYSTEM: Revealed an obese abdomen, but much improved compared to the presenting abdomen. EXTREMITIES: Did show some peripheral edema. NEUROLOGIC: Alert and oriented. No lateralizing sign. LYMPHATICS: No peripheral lymphadenopathy. LABORATORY INVESTIGATION: Showed potassium of 5.2, bicarbonate 21, creatinine 2.12, BUN of 59. IMPRESSION: 1. Hypervolemia, undergoing diuresis. Patient has lost approximately 42 pounds since presentation. 2. Acute hypoxic respiratory failure, query cause. This is possibly related to aspiration/mucous pl ugging. 3. Acute on chronic kidney disease in the context of diuresis. 4. Query urinary retention as patient has not passed any urine since yesterday evening. PLAN: 1. Bladder scan, there has been significant amount of urine. 2. Hernandez catheterize this patient and retain the Hernandez if the urinary output is significant. 3. The patient to benefit from DUGLAS hose stockings to address lower extremity edema. . 4. Renally dose all medications and avoid potentially nephrotoxic agents. 5. Further management to be dependent on the clinical course.
--- NOTE | 2018-08-09 15:19 | EKG ---
Test Reason : Blood Pressure : / mmHG Vent. Rate : 117 BPM Atrial Rate : 120 BPM P-R Int : 000 ms QRS Dur : 120 ms QT Int : 326 ms P-R-T Axes : 000 189 019 degrees QTc Int : 454 ms Atrial fibrillation with rapid ventricular response with premature ventricular or aberrantly conducte d complexes Possible Right ventricular hypertrophy Inferior infarct , age undetermined Anterolateral infarct , age undetermined Abnormal ECG When compared with ECG of 04-AUG-2018 11:10, (Unconfirmed) Atrial fibrillation has replaced Wide QRS rhythm Vent. rate has increased BY 46 BPM Confirmed by BENIGNO GUAMAN, DR. Ball ([id number]) on 08/09/2018 3:19:12 PM Referred By: Confirmed By:DR. Quinn PELAEZ MD
--- NOTE | 2018-08-09 16:10 | PRG ---
DATE OF SERVICE: 08/09/2018 SUBJECTIVE: Mr. Owens was recently transferred from telemetry monitoring over to the [facility] c are due to hypoxia and hypotension. Patient has been diuresed close to 40 pounds in the last 4 days. He was markedly overloaded. His right ventricle is enlarged. His overall LVEF does appear normal. He continues to have third spacing. His albumin level is normal. PHYSICAL EXAMINATION: GENERAL APPEARANCE: He is currently resting comfortably. VITAL SIGNS: Blood pressure 105/58, pulse 94, temperature 97.7. LUNGS: Crackles at bases bilaterally. HEART: Regular rate and rhythm. ABDOMEN: Soft, distended. EXTREMITIES: 2+ pitting edema. PERTINENT LABORATORY DATA: Hemoglobin 14, creatinine increased from 1.3-2.12. IMPRESSION: 1. Right-sided heart failure. 2. ? sleep apnea. 3. Coronary artery disease. 4. Status post bypass surgery. 5. Diastolic dysfunction. 6. Ascites. RECOMMENDATIONS: I discussed the case with Dr. Cuba Cartagena. The patient likely has RV pressure ov erload. I am concerned about obstructive sleep apnea as the precipitating cause. He states he has b een tested and has been negative in the past. At this point, we will discontinue Lasix. He continue s to have third spacing with increased creatinine. We will reassess in a.m. No current symptoms sug gesting angina.
[2018-08-09] MEDS: Insulin Glargine 10 UNITS in Pre-Filled Syringe 1 EACH SC SCH (20:31)
[2018-08-09] MEDS: HumaLOG 300 UNITS/3 ML VIAL SC PRN (20:32)
[2018-08-10 05:29] LABS: INR-International Normal Ratio 2.9; Prothrombin Time 30.4 SEC (12.0-14.7)
[2018-08-10 06:02] LABS: Anion Gap 18 mmol/L (10-20); BUN (Urea Nitrogen) 75 mg/dL (8.4-25.7); Calc. Creatinine Clearance 42 mL/min (70-130); Carbon Dioxide 25 mmol/L (23-31); Chloride 103 mmol/L (98-107); Estimated GFR-MDRD 28; Glucose 145 mg/dL (83-110); Potassium 4.2 mmol/L (3.5-5.1); Sodium 142 mmol/L (136-145)
[2018-08-10] MEDS: Mometasone/Formoterol 120 PUFF INHALER INH SCH ×2 (07:01→18:46)
--- NOTE | 2018-08-10 08:22 | PRG ---
DATE OF SERVICE: 08/10/2018 The patient is about the same. PHYSICAL EXAMINATION: VITAL SIGNS: Temperature 97.3, pulse 103, respirations 17, O2 sat 94%, blood pressure 88/49. HEENT: Unremarkable. NECK: No JVD. LUNGS: He has inspiratory crackles both bases. CARDIOVASCULAR: S1, S2, irregular, irregular. ABDOMEN: Soft, slightly distended. EXTREMITIES: 3+ edema from the knees downward. LABORATORY DATA: Sodium 142, potassium 4.2, chloride 103, CO2 of 25, BUN 75, creatinine 2.3, glucose 145, white blood cell count 11.7, hematocrit ____, platelet count 232. INR is 2.9. ASSESSMENT: 1. Paroxysmal atrial fibrillation. 2. Congestive heart failure. 3. Cor pulmonale with predominantly right-sided heart failure. 4. Renal insufficiency. 5. Underlying chronic obstructive pulmonary disease - he has fairly mild to moderate decrease in FEV 1, but has a profound decrease in his DLCO. RECOMMENDATIONS: 1. Try to wean high flow O2 as tolerated. 2. Add low dose steroids. 3. Very judicious diuresis - we may need to back down on how much he is being diuresed currently. 4. Leave in [facility] for the time being. 5. I discussed with the patient in detail.
[2018-08-10] MEDS: Ubidecarenone 50 MG CAP PO SCH (09:00)
[2018-08-10] MEDS: Potassium Chloride 20 MEQ TAB PO SCH ×2 (09:01→17:21)
[2018-08-10] MEDS: glyBURIDE 5 MG TAB PO SCH ×2 (09:01→17:21)
[2018-08-10] MEDS: Atorvastatin Calcium 20 MG TAB PO SCH (09:01)
[2018-08-10] MEDS: Allopurinol 100 MG TAB PO SCH (09:01)
--- NOTE | 2018-08-10 10:14 | PDOC.CTH ---
Cardiology Progress Note - Subjective Pt symptomatically is better. Less abdominal distention present. NO CP. BP is is the upper 90's to 100's. Pt has lost 40lbs since admission - Objective Vital Signs Temp Pulse Resp BP BP Pulse Ox 08/10/18 07:31 97.3 F L 103 H 17 88/49 L 94 L 08/10/18 07:02 97 08/10/18 06:58 102 H 17 97 08/10/18 04:00 97.7 F 103 H 18 100/59 L 95 08/10/18 00:00 97.6 F 86 33 H 107/58 L 99 08/09/18 23:36 102 H 16 100 Admit Weight 274 lb 14.4 oz Weight 229 lb 4.8 oz 08/09/18 08/10/18 08/11/18 06:59 06:59 06:59 Intake Total 950 600 Output Total 1200 Balance 950 -600 - Physical Examination General/Neuro: alert & oriented x3, NAD Neck: carotid US brisk, no JVD present Lungs: CTA, unlabored respirations Heart: RRR Abdomen: no HSM, NT/ND, soft Extremities: + edema B - Labs Result Diagrams: 08/08/18 19:17 08/10/18 04:45 Troponin/CKMB CK-MB (CK-2) 2.5 ng/mL (0-6.6) 08/08/18 19:17 Troponin I 0.592 ng/mL (< 0.028) H* 08/09/18 00:24 - Assessment/Plan Cor pulmonale CAD s/p CABG ascites Clinically improved Continues with significant edema noted peripherally EF overall stable Hold diuretics given creatinine increase Review of previous echo from 2017 showed similar findings in reference to RV and RA enlargement; appears to be a chroinic issue
--- NOTE | 2018-08-10 13:47 | PDOC.PN ---
- Subjective Encounter Start Date: 08/10/18 Encounter Start Time: 09:15 -: old records requested/rev pt's oxygen saturation drops with little exersion, Patient seen and examined. No overnight events - Objective Resuscitation Status: Resuscitation Status FULL:Full Resuscitation MAR Reviewed: Yes Vital Signs & Weight: Vital Signs (12 hours) Temp Pulse Resp BP BP BP Pulse Ox 08/10/18 11:21 97.5 F L 107 H 21 H 110/59 L 93 L 08/10/18 10:52 106 H 18 97 08/10/18 07:31 97.3 F L 103 H 17 88/49 L 94 L 08/10/18 07:02 97 08/10/18 06:58 102 H 17 97 08/10/18 04:00 97.7 F 103 H 18 100/59 L 95 Weight Admit Weight 274 lb 14.4 oz Weight 229 lb 4.8 oz I&O: 08/09/18 08/10/18 08/11/18 06:59 06:59 06:59 Intake Total 950 600 Output Total 1200 Balance 950 -600 Result Diagrams: 08/08/18 19:17 08/10/18 04:45 Additional Labs: Accuchecks 08/10/18 08/10/18 08/09/18 10:34 06:05 20:23 POC Glucose 121 H 130 H 206 H 08/09/18 16:51 POC Glucose 172 H EKG Reviewed by me: Yes (nsr) Phys Exam - Physical Examination Constitutional: NAD HEENT: PERRLA, moist MMs, sclera anicteric Neck: supple Respiratory: no wheezing, no rhonchi 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 Cardiovascular: RRR, no rub SM parasternal+ Gastrointestinal: soft, positive bowel sounds ascites+ Musculoskeletal: edema present Neurological: moves all 4 limbs Lymphatic: no nodes Psychiatric: normal affect, A&O x 3 Skin: no rash, normal turgor Dx/Plan (1) Acute on chronic diastolic ACC/AHA stage C congestive heart failure Code(s): I50.33 - ACUTE ON CHRONIC DIASTOLIC (CONGESTIVE) HEART FAILURE Status : Acute (2) Acute on chronic respiratory failure with hypoxia Code(s): J96.21 - ACUTE AND CHRONIC RESPIRATORY FAILURE WITH HYPOXIA Status: Acute (3) Anasarca Code(s): R60.1 - GENERALIZED EDEMA Status: Acute (4) Ascites Code(s): R18.8 - OTHER ASCITES Status: Acute (5) Hyperuricemia Code(s): E79.0 - HYPERURICEMIA W/O SIGNS OF INFLAM ARTHRIT AND TOPHACEOUS DIS Status: Acute (6) CAD (coronary artery disease) Code(s): I25.10 - ATHSCL HEART DISEASE OF [place] CORONARY ARTERY W/O ANG PCTRS Status: Chronic Comment: (7) CKD (chronic kidney disease) stage 3, GFR 30-59 ml/min Code(s): N18.3 - CHRONIC KIDNEY DISEASE, STAGE 3 (MODERATE) Status: Chronic (8) Chronic anticoagulation Code(s): Z79.01 - [employer] (CURRENT) USE OF ANTICOAGULANTS Status: Chronic (9) DM2 (diabetes mellitus, type 2) Status: Chronic Comment: (10) Dyslipidemia Code(s): E78.5 - HYPERLIPIDEMIA, UNSPECIFIED Status: Chronic Comment: (11) HTN (hypertension) Code(s): I10 - ESSENTIAL (PRIMARY) HYPERTENSION Status: Chronic Comment: (12) Obesity (BMI 30-39.9) Code(s): E66.9 - OBESITY, UNSPECIFIED Status: Chronic (13) PAF (paroxysmal atrial fibrillation) Code(s): I48.0 - PAROXYSMAL ATRIAL FIBRILLATION Status: Chronic (14) Hypokalemia Code(s): E87.6 - HYPOKALEMIA Status: Acute (15) Moderate tricuspid regurgitation Code(s): I07.1 - RHEUMATIC TRICUSPID INSUFFICIENCY Status: Chronic (16) Pulmonary hypertension Code(s): I27.20 - PULMONARY HYPERTENSION, UNSPECIFIED Status: Chronic (17) Acute worsening of stage 3 chronic kidney disease Code(s): N18.3 - CHRONIC KIDNEY DISEASE, STAGE 3 (MODERATE) Status: Acute - Plan cont current plan of care * continue IV solumedrol * monitor renal function, creatinine is rising * still has lot of edema but renal function does not permit more diuresis * prognosis guarded * continue oxygen * medication reviewed as below * symptomatic treatment as below * cardiology, pulmonary and nephrology on case. Review of Systems - Review of Systems Constitutional: weakness. negative: fever, chills, sweats, malaise, other Respiratory: Shortness of Breath, SOB with Excertion. negative: Cough, Dry, Hemoptysis, Pleuritic Pain, Sputum, Wheezing Cardiovascular: edema. negative: chest pain, palpitations, orthopnea, paroxysmal nocturnal dyspnea, light headedness, other Gastrointestinal: negative: Nausea, Vomiting, Abdominal Pain, Diarrhea, Constipation, Melena, Hematochezia, Other Genitourinary: negative: Dysuria, Frequency, Incontinence, Hematuria, Retention , Other Musculoskeletal: negative: Neck Pain, Shoulder Pain, Arm Pain, Back Pain, Hand Pain, Leg Pain, Foot Pain, Other - Medications/Allergies Allergies/Adverse Reactions: Allergies Allergy/AdvReac Type Severity Reaction Status Date / Time furosemide Allergy Verified 08/04/18 20:57 vancomycin Allergy Verified 08/04/18 15:47 Medications: Current Medications Acetaminophen (Tylenol) 650 mg PO Q4H PRN PRN Reason: Headache/Fever or Pain Hydrocodone Bitart/Acetaminophen ([place] 5/325) 1 tab PO Q4H PRN PRN Reason: Moderate Pain (4-6) Al Hydroxide/Mg Hydroxide (Maalox) 30 ml PO Q6H PRN PRN Reason: Heartburn or Indigestion Albuterol/Ipratropium (Duoneb) 3 ml NEB [id number] [facility] Last Admin: 08/10/18 10:52 Dose: 3 ml Allopurinol (Zyloprim) 100 mg PO DAILY [facility] Last Admin: 08/10/18 09:01 Dose: 100 mg Artificial Tears (Tears Naturale) 0 drop EA EYE PRN PRN PRN Reason: Dry Eyes Aspirin (Aspirin Chewable) 81 mg PO DAILY [facility] Last Admin: 08/10/18 09:01 Dose: 81 mg Atorvastatin Calcium (Lipitor) 20 mg PO DAILY [facility] Last Admin: 08/10/18 09:01 Dose: 20 mg Coenzyme Q10 (Coenzyme Q10) 400 mg PO DAILY [facility] Last Admin: 08/10/18 09:00 Dose: 400 mg Dextrose/Water (Dextrose 50%) 25 gm SLOW IVP PRN PRN PRN Reason: Hypoglycemia Glucagon (Glucagon) 1 mg IM PRN PRN PRN Reason: Hypoglycemia Glyburide (Diabeta) 5 mg PO BID-[facility] Last Admin: 08/10/18 09:01 Dose: 5 mg Guaifenesin (Robitussin Sf) 200 mg PO Q4H PRN PRN Reason: Cough Hydralazine HCl (Apresoline) 10 mg SLOW IVP Q4H PRN PRN Reason: Systolic BP > 180 Dextrose/Water (D5w) 1,000 mls @ 0 mls/hr IV .Q0M PRN PRN Reason: Hypoglycemia Insulin Glargine 10 units/ (Miscellaneous Medication) 0.1 mls @ 0 mls/hr SC HS [facility] Last Admin: 08/09/18 20:31 Dose: Not Given Insulin Human Lispro (Humalog) 0 units SC .MODERATE SLIDING SC PRN PRN Reason: Moderate Correctional Scale Last Admin: 08/06/18 17:26 Dose: 2 units Insulin Human Lispro (Humalog) 0 units SC .BEDTIME SLIDING SC PRN PRN Reason: Bedtime Correctional Scale Last Admin: 08/09/18 20:32 Dose: 2 unit Loperamide HCl (Imodium) 2 mg PO PRN PRN PRN Reason: Diarrhea/Loose Stools Loratadine (Claritin) 10 mg PO DAILYPRN PRN PRN Reason: Sinus Symptoms Magnesium Hydroxide (Milk Of Magnesium) 30 ml PO DAILYPRN PRN PRN Reason: Constipation Methylprednisolone Sodium Succinate (Solu-Medrol) 20 mg IVP Q6HR [facility] Last Admin: 08/10/18 12:51 Dose: 20 mg Mineral Oil/White Petrolatum (Eucerin Cream) 0 gm TOP BIDPRN PRN PRN Reason: Dry Skin Mometasone Furoate/Formoterol Fumar (Dulera 200 Mcg/5 Mcg Inhaler) 1 puff INH BID-RT [facility] Last Admin: 08/10/18 07:01 Dose: 1 puff Nitroglycerin (Nitro-Bid 2% Ointment) 0.5 inch TOP Q6H PRN PRN Reason: SBP>160 Ondansetron HCl (Zofran Odt) 4 mg PO Q6H PRN PRN Reason: Nausea/Vomiting Ondansetron HCl (Zofran) 4 mg IVP Q6H PRN PRN Reason: Nausea/Vomiting Last Admin: 08/08/18 19:29 Dose: 4 mg Phenol (Chloraseptic [place] 180 Ml Bot) 0 ml PO PRN PRN PRN Reason: Sore Throat Potassium Chloride (K-Dur) 20 meq PO BID-WM [facility] Last Admin: 08/10/18 09:01 Dose: 20 meq Senna (Senokot) 2 tab PO HSPRN PRN PRN Reason: Constipation Sodium Chloride ([place] Nasal [place] 0.65%) 0 ml EA NARE QIDPRN PRN PRN Reason: Nasal Congestion Sodium Chloride (Flush - Normal Saline) 10 ml IVF Q12HR [facility] Last Admin: 08/10/18 09:02 Dose: 10 ml Sodium Chloride (Flush - Normal Saline) 10 ml IVF PRN PRN PRN Reason: Saline Flush Zolpidem Tartrate (Ambien) 5 mg PO HSPRN PRN PRN Reason: Insomnia
--- NOTE | 2018-08-10 19:49 | PRG ---
DATE OF SERVICE: 08/10/2018 SUBJECTIVE: The patient was seen and examined with no new complaint, noted with the following vital signs. PHYSICAL EXAMINATION: VITAL SIGNS: Afebrile with temperature 97.4, pulse 103, respiratory rate of 20, O2 sat of 97%, blood pressure 106/64. HEENT: Unremarkable. CARDIOVASCULAR SYSTEM: First and second heart sounds were heard. RESPIRATORY SYSTEM: Clear to auscultation. DIGESTIVE SYSTEM: Revealed obese abdomen. EXTREMITIES: Showed peripheral edema. SKIN: No new gross rash. LYMPHATICS: No peripheral lymphadenopathy. IMPRESSION: 1. Acute on chronic kidney disease in the context of diuresis. 2. Cardiopulmonary failure, on high-flow oxygen supplementation. 3. Morbid obesity. PLAN: 1. We will hold diuretics for now and subsequently re-introduce diuretics at a lower dose. 2. Renally dose all medications. 3. Further management will be dependent on the clinical course.
[2018-08-10] MEDS: Insulin Glargine 10 UNITS in Pre-Filled Syringe 1 EACH SC SCH (21:05)
[2018-08-11] MEDS: HumaLOG 300 UNITS/3 ML VIAL SC PRN ×4 (05:49→20:38)
[2018-08-11] MEDS: Mometasone/Formoterol 120 PUFF INHALER INH SCH ×2 (06:43→19:20)
[2018-08-11 07:27] LABS: Anion Gap 16 mmol/L (10-20); BUN (Urea Nitrogen) 84 mg/dL (8.4-25.7); Calc. Creatinine Clearance 44 mL/min (70-130); Calcium 9.8 mg/dL (7.8-10.44); Carbon Dioxide 29 mmol/L (23-31); Chloride 102 mmol/L (98-107); Estimated GFR-MDRD 29; Glucose 261 mg/dL (83-110); Potassium 4.6 mmol/L (3.5-5.1); Sodium 142 mmol/L (136-145)
[2018-08-11] MEDS: glyBURIDE 5 MG TAB PO SCH ×2 (08:18→17:27)
[2018-08-11] MEDS: Potassium Chloride 20 MEQ TAB PO SCH ×2 (08:19→17:27)
[2018-08-11] MEDS: Allopurinol 100 MG TAB PO SCH (09:57)
[2018-08-11] MEDS: Atorvastatin Calcium 20 MG TAB PO SCH (09:57)
--- NOTE | 2018-08-11 10:34 | PDOC.PN ---
- Subjective Encounter Start Date: 08/11/18 Encounter Start Time: 09:00 pt is still on high flow oxygen, he does not have bleeding from any site, he is very weak, and has worsening edema - Objective Resuscitation Status: Resuscitation Status FULL:Full Resuscitation MAR Reviewed: Yes Vital Signs & Weight: Vital Signs (12 hours) Temp Pulse Resp BP BP BP Pulse Ox 08/11/18 10:31 98 20 90 L 08/11/18 08:20 91 L 08/11/18 07:45 97.6 F 101 H 19 118/78 91 L 08/11/18 06:43 99 20 90 L 08/11/18 06:35 89 L 08/11/18 06:31 102 H 20 89 L 08/11/18 03:10 96.8 F L 90 16 105/50 L 88 L 08/11/18 02:34 95 20 92 L 08/10/18 23:51 97.0 F L 98 16 109/64 88 L 08/10/18 22:45 98 18 94 L Weight Admit Weight 274 lb 14.4 oz Weight 234 lb 12.8 oz I&O: 08/10/18 08/11/18 08/12/18 06:59 06:59 06:59 Intake Total 600 1150 Output Total 1200 1450 Balance -600 -300 Result Diagrams: 08/08/18 19:17 08/11/18 06:58 Additional Labs: Accuchecks 08/11/18 08/10/18 08/10/18 05:44 20:11 16:59 POC Glucose 232 H 188 H 156 H 08/10/18 10:34 POC Glucose 121 H EKG Reviewed by me: Yes Phys Exam - Physical Examination Constitutional: NAD HEENT: PERRLA, moist MMs, sclera anicteric Neck: supple hig JVD Respiratory: no wheezing, no rhonchi 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 Cardiovascular: RRR, no rub SM+ parasternal Gastrointestinal: soft ascites+ Musculoskeletal: pulses present, edema present Neurological: non-focal, normal sensation Lymphatic: no nodes Psychiatric: normal affect, A&O x 3 Skin: no rash, normal turgor Dx/Plan (1) Acute on chronic diastolic ACC/AHA stage C congestive heart failure Code(s): I50.33 - ACUTE ON CHRONIC DIASTOLIC (CONGESTIVE) HEART FAILURE Status : Acute (2) Acute on chronic respiratory failure with hypoxia Code(s): J96.21 - ACUTE AND CHRONIC RESPIRATORY FAILURE WITH HYPOXIA Status: Acute (3) Anasarca Code(s): R60.1 - GENERALIZED EDEMA Status: Acute (4) Ascites Code(s): R18.8 - OTHER ASCITES Status: Acute (5) Hyperuricemia Code(s): E79.0 - HYPERURICEMIA W/O SIGNS OF INFLAM ARTHRIT AND TOPHACEOUS DIS Status: Acute (6) CAD (coronary artery disease) Code(s): I25.10 - ATHSCL HEART DISEASE OF [place] CORONARY ARTERY W/O ANG PCTRS Status: Chronic Comment: (7) CKD (chronic kidney disease) stage 3, GFR 30-59 ml/min Code(s): N18.3 - CHRONIC KIDNEY DISEASE, STAGE 3 (MODERATE) Status: Chronic (8) Chronic anticoagulation Code(s): Z79.01 - [employer] (CURRENT) USE OF ANTICOAGULANTS Status: Chronic (9) DM2 (diabetes mellitus, type 2) Status: Chronic Comment: (10) Dyslipidemia Code(s): E78.5 - HYPERLIPIDEMIA, UNSPECIFIED Status: Chronic Comment: (11) HTN (hypertension) Code(s): I10 - ESSENTIAL (PRIMARY) HYPERTENSION Status: Chronic Comment: (12) Obesity (BMI 30-39.9) Code(s): E66.9 - OBESITY, UNSPECIFIED Status: Chronic (13) PAF (paroxysmal atrial fibrillation) Code(s): I48.0 - PAROXYSMAL ATRIAL FIBRILLATION Status: Chronic (14) Hypokalemia Code(s): E87.6 - HYPOKALEMIA Status: Acute (15) Moderate tricuspid regurgitation Code(s): I07.1 - RHEUMATIC TRICUSPID INSUFFICIENCY Status: Chronic (16) Pulmonary hypertension Code(s): I27.20 - PULMONARY HYPERTENSION, UNSPECIFIED Status: Chronic (17) Acute worsening of stage 3 chronic kidney disease Code(s): N18.3 - CHRONIC KIDNEY DISEASE, STAGE 3 (MODERATE) Status: Acute (18) Coagulopathy Status: Acute - Plan cont current plan of care, plan discussed w/ family * pt's INR rising, despite being off on warfarin, may be related with liver dysfunction from passive congestion * check LFT * today renal function is little better but with off diuresis, edema is worse * continue solumedrol * prognosis is very poor, will consult palliative care for goal of care * medication reviewed as below * symptomatic treatment * continue solumedrol * discussed with family. Review of Systems - Review of Systems Constitutional: weakness. negative: fever, chills, sweats, malaise, other Respiratory: Shortness of Breath, SOB with Excertion. negative: Cough, Dry, Hemoptysis, Pleuritic Pain, Sputum, Wheezing Cardiovascular: edema. negative: chest pain, palpitations, orthopnea, paroxysmal nocturnal dyspnea, light headedness, other Gastrointestinal: negative: Nausea, Vomiting, Abdominal Pain, Diarrhea, Constipation, Melena, Hematochezia, Other Genitourinary: negative: Dysuria, Frequency, Incontinence, Hematuria, Retention , Other Musculoskeletal: negative: Neck Pain, Shoulder Pain, Arm Pain, Back Pain, Hand Pain, Leg Pain, Foot Pain, Other - Medications/Allergies Allergies/Adverse Reactions: Allergies Allergy/AdvReac Type Severity Reaction Status Date / Time furosemide Allergy Verified 08/04/18 20:57 vancomycin Allergy Verified 08/04/18 15:47 Medications: Current Medications Acetaminophen (Tylenol) 650 mg PO Q4H PRN PRN Reason: Headache/Fever or Pain Hydrocodone Bitart/Acetaminophen ([place] 5/325) 1 tab PO Q4H PRN PRN Reason: Moderate Pain (4-6) Al Hydroxide/Mg Hydroxide (Maalox) 30 ml PO Q6H PRN PRN Reason: Heartburn or Indigestion Albuterol/Ipratropium (Duoneb) 3 ml NEB [id number] [facility] Last Admin: 08/11/18 10:31 Dose: 3 ml Allopurinol (Zyloprim) 100 mg PO DAILY [facility] Last Admin: 08/11/18 09:57 Dose: 100 mg Artificial Tears (Tears Naturale) 0 drop EA EYE PRN PRN PRN Reason: Dry Eyes Aspirin (Aspirin Chewable) 81 mg PO DAILY [facility] Last Admin: 08/11/18 09:57 Dose: 81 mg Atorvastatin Calcium (Lipitor) 20 mg PO DAILY [facility] Last Admin: 08/11/18 09:57 Dose: 20 mg Coenzyme Q10 (Coenzyme Q10) 400 mg PO DAILY [facility] Last Admin: 08/10/18 09:00 Dose: 400 mg Dextrose/Water (Dextrose 50%) 25 gm SLOW IVP PRN PRN PRN Reason: Hypoglycemia Glucagon (Glucagon) 1 mg IM PRN PRN PRN Reason: Hypoglycemia Glyburide (Diabeta) 5 mg PO BID-[facility] Last Admin: 08/11/18 08:18 Dose: 5 mg Guaifenesin (Robitussin Sf) 200 mg PO Q4H PRN PRN Reason: Cough Hydralazine HCl (Apresoline) 10 mg SLOW IVP Q4H PRN PRN Reason: Systolic BP > 180 Dextrose/Water (D5w) 1,000 mls @ 0 mls/hr IV .Q0M PRN PRN Reason: Hypoglycemia Insulin Glargine 10 units/ (Miscellaneous Medication) 0.1 mls @ 0 mls/hr SC [facility] Last Admin: 08/10/18 21:05 Dose: Not Given Insulin Human Lispro (Humalog) 0 units SC .MODERATE SLIDING SC PRN PRN Reason: Moderate Correctional Scale Last Admin: 08/11/18 05:49 Dose: 4 units Insulin Human Lispro (Humalog) 0 units SC .BEDTIME SLIDING SC PRN PRN Reason: Bedtime Correctional Scale Last Admin: 08/09/18 20:32 Dose: 2 unit Loperamide HCl (Imodium) 2 mg PO PRN PRN PRN Reason: Diarrhea/Loose Stools Loratadine (Claritin) 10 mg PO DAILYPRN PRN PRN Reason: Sinus Symptoms Magnesium Hydroxide (Milk Of Magnesium) 30 ml PO DAILYPRN PRN PRN Reason: Constipation Methylprednisolone Sodium Succinate (Solu-Medrol) 20 mg IVP Q6HR [facility] Last Admin: 08/11/18 05:36 Dose: 20 mg Mineral Oil/White Petrolatum (Eucerin Cream) 0 gm TOP BIDPRN PRN PRN Reason: Dry Skin Mometasone Furoate/Formoterol Fumar (Dulera 200 Mcg/5 Mcg Inhaler) 1 puff INH BID-RT [facility] Last Admin: 08/11/18 06:43 Dose: 1 puff Nitroglycerin (Nitro-Bid 2% Ointment) 0.5 inch TOP Q6H PRN PRN Reason: SBP>160 Ondansetron HCl (Zofran Odt) 4 mg PO Q6H PRN PRN Reason: Nausea/Vomiting Ondansetron HCl (Zofran) 4 mg IVP Q6H PRN PRN Reason: Nausea/Vomiting Last Admin: 08/08/18 19:29 Dose: 4 mg Phenol (Chloraseptic [place] 180 Ml Bot) 0 ml PO PRN PRN PRN Reason: Sore Throat Potassium Chloride (K-Dur) 20 meq PO BID-[facility] Last Admin: 08/11/18 08:19 Dose: 20 meq Senna (Senokot) 2 tab PO HSPRN PRN PRN Reason: Constipation Sodium Chloride ([place] Nasal [place] 0.65%) 0 ml EA NARE QIDPRN PRN PRN Reason: Nasal Congestion Sodium Chloride (Flush - Normal Saline) 10 ml IVF Q12HR [facility] Last Admin: 08/11/18 09:57 Dose: 10 ml Sodium Chloride (Flush - Normal Saline) 10 ml IVF PRN PRN PRN Reason: Saline Flush Zolpidem Tartrate (Ambien) 5 mg PO HSPRN PRN PRN Reason: Insomnia
[2018-08-11 10:54] LABS: ALT (SGPT) 24 U/L (8-55); AST (SGOT) 35 U/L (5-34); Albumin 3.6 g/dL (3.4-4.8); Alkaline Phosphatase 86 U/L (40-150); Bilirubin, Direct 1.8 mg/dL (0.1-0.3); Bilirubin, Total 2.8 mg/dL (0.2-1.2); Protein, Total 7.2 g/dL (5.8-8.1)
[2018-08-11] MEDS: Ubidecarenone 50 MG CAP PO SCH (11:05)
--- NOTE | 2018-08-11 12:59 | PDOC.CTH ---
Cardiology Progress Note - Subjective No new issues. His breathing is unchanged from yesterday. - Objective Vital Signs Temp Pulse Resp BP BP Pulse Ox 08/11/18 11:07 97.4 F L 105 H 17 104/66 97 08/11/18 10:31 98 20 90 L 08/11/18 08:20 91 L 08/11/18 07:45 97.6 F 101 H 19 118/78 91 L 08/11/18 06:43 99 20 90 L 08/11/18 06:35 89 L 08/11/18 06:31 102 H 20 89 L 08/11/18 03:10 96.8 F L 90 16 105/50 L 88 L 08/11/18 02:34 95 20 92 L Admit Weight 274 lb 14.4 oz Weight 234 lb 12.8 oz 08/10/18 08/11/18 08/12/18 06:59 06:59 06:59 Intake Total 600 1150 Output Total 1200 1450 Balance -600 -300 - Physical Examination General/Neuro: alert & oriented x3, NAD Neck: no JVD present Lungs: unlabored respirations Heart: RRR Abdomen: other: (Ascitis) Extremities: + edema B (4+) - Telemetry Telemetry Rhythm: S Tach - Labs Result Diagrams: 08/08/18 19:17 08/11/18 06:58 Troponin/CKMB CK-MB (CK-2) 2.5 ng/mL (0-6.6) 08/08/18 19:17 Troponin I 0.592 ng/mL (< 0.028) H* 08/09/18 00:24 - Assessment/Plan 1. Cor pulmonale 2. CAD 3. s/p CABG 4. Ascites PLAN: - Clinically improved - Continues with significant edema noted peripherally - EF at 55-60% - Continue to Hold diuretics today, will re challenge tomorrow.
--- NOTE | 2018-08-11 13:05 | PRG ---
DATE OF SERVICE: 08/11/2018 SUBJECTIVE: The patient examined . OBJECTIVE: VITAL SIGNS: Afebrile with temperature 97.4, pulse 105, respiratory rate 17, O2 sat 97%. HEENT: Unremarkable. CARDIOVASCULAR: First and second heart sounds were heard. RESPIRATORY SYSTEM: Clear to auscultation. ABDOMEN: Digestive system revealed an obese abdomen. EXTREMITIES: Showed peripheral edema. LABORATORY INVESTIGATION: Showed a creatinine of 2.2 with BUN of 84. IMPRESSION: 1. Hypervolemia responding to diuretics. The patient is currently on diuretic holiday. 2. Acute on chronic kidney disease in the context of diuresis and cardiorenal syndrome. PLAN: 1. We will keep an eye on this patient. We will monitor this patient's fluid status. Currently, th e patient is on diuretic holiday and seems to beginning to reaccumulate fluid. We will reevaluate in the next 24 hours if the patient can go back on low dose diuretics. 2. Further management to be dependent on the clinical course, avoid potentially nephrotoxic agents.
[2018-08-11] MEDS: Insulin Glargine 10 UNITS in Pre-Filled Syringe 1 EACH SC SCH (20:48)
--- NOTE | 2018-08-11 23:08 | PRG ---
DATE OF SERVICE: 08/11/2018 SUBJECTIVE: Mr. Owens says he wants to go home, so that he can go . He says he finally cooled off enough where he can go outdoors and do some things that he enjoys. OBJECTIVE: VITAL SIGNS: He is afebrile, heart rate is 102, respiratory rate 22, oximetry is 93% on a facemask a lternating with high-flow nasal cannula. LUNGS: Distant and clear. HEART: Regular rhythm. ABDOMEN: Distended. EXTREMITIES: Remarkable for 4+ edema. Intake and output is negative 300. I reminded him to watch his p.o. intake as he took in 1150 mL yesterday. Sodium 142, potassium 4.6, chloride 102, bicarbonate 29, BUN 84, creatinine 2.22. IMPRESSION: 1. Atrial fibrillation. 2. Heart failure. 3. Cor pulmonale. 4. Renal insufficiency. 5. Chronic obstructive pulmonary disease. PLAN: Continue gentle diuresis, monitoring renal function. Watch his p.o. intake. Continue with ph ysical therapy as he is very weak and nowhere near a point where he could be discharged home safely.
[2018-08-12 04:40] LABS: Prothrombin Time 44.1 SEC (12.0-14.7)
[2018-08-12 04:47] LABS: INR-International Normal Ratio 4.7
[2018-08-12] MEDS: HumaLOG 300 UNITS/3 ML VIAL SC PRN ×4 (05:59→21:17)
[2018-08-12] MEDS: Mometasone/Formoterol 120 PUFF INHALER INH SCH ×2 (06:42→18:57)
[2018-08-12] MEDS: Atorvastatin Calcium 20 MG TAB PO SCH (09:29)
[2018-08-12] MEDS: glyBURIDE 5 MG TAB PO SCH ×2 (09:29→17:54)
[2018-08-12] MEDS: Allopurinol 100 MG TAB PO SCH (09:29)
[2018-08-12] MEDS: Potassium Chloride 20 MEQ TAB PO SCH ×2 (09:30→17:54)
[2018-08-12] MEDS: Ubidecarenone 50 MG CAP PO SCH (09:30)
--- NOTE | 2018-08-12 10:28 | PDOC.PN ---
- Subjective Encounter Start Date: 08/12/18 Encounter Start Time: 09:10 Patient seen and examined. No new complaints. No overnight events he is very weak, he has not done therapy, still on high flow oxygen, has leg edema - Objective Resuscitation Status: Resuscitation Status FULL:Full Resuscitation MAR Reviewed: Yes Vital Signs & Weight: Vital Signs (12 hours) Temp Pulse Resp BP Pulse Ox 08/12/18 10:18 106 H 20 97 08/12/18 07:46 90 L 08/12/18 07:13 97.9 F 104 H 18 89/49 L 90 L 08/12/18 06:42 103 H 20 91 L 08/12/18 06:21 92 L 08/12/18 06:20 101 H 20 92 L 08/12/18 04:00 97.1 F L 103 H 20 84/51 L 90 L 08/12/18 02:43 96 08/11/18 23:39 97.6 F 104 H 18 114/65 100 08/11/18 23:15 98 Weight Admit Weight 274 lb 14.4 oz Weight 232 lb 12.8 oz I&O: 08/11/18 08/12/18 08/13/18 06:59 06:59 06:59 Intake Total 1150 1095 Output Total 1450 1000 Balance -300 95 Result Diagrams: 08/08/18 19:17 08/11/18 06:58 Additional Labs: Accuchecks 08/11/18 08/11/18 08/11/18 20:37 17:26 11:13 POC Glucose 266 H 266 H 223 H EKG Reviewed by me: Yes Phys Exam - Physical Examination Constitutional: NAD HEENT: PERRLA, moist MMs, sclera anicteric Neck: supple Respiratory: no wheezing, no rales, no rhonchi 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 Cardiovascular: RRR, no rub Gastrointestinal: soft, non-tender, positive bowel sounds ascites+ Musculoskeletal: pulses present, edema present Neurological: non-focal, normal sensation, moves all 4 limbs Lymphatic: no nodes Psychiatric: normal affect, A&O x 3 Skin: no rash, normal turgor Dx/Plan (1) Acute on chronic diastolic ACC/AHA stage C congestive heart failure Code(s): I50.33 - ACUTE ON CHRONIC DIASTOLIC (CONGESTIVE) HEART FAILURE Status : Acute (2) Acute on chronic respiratory failure with hypoxia Code(s): J96.21 - ACUTE AND CHRONIC RESPIRATORY FAILURE WITH HYPOXIA Status: Acute (3) Anasarca Code(s): R60.1 - GENERALIZED EDEMA Status: Acute (4) Ascites Code(s): R18.8 - OTHER ASCITES Status: Acute (5) Hyperuricemia Code(s): E79.0 - HYPERURICEMIA W/O SIGNS OF INFLAM ARTHRIT AND TOPHACEOUS DIS Status: Acute (6) CAD (coronary artery disease) Code(s): I25.10 - ATHSCL HEART DISEASE OF [place] CORONARY ARTERY W/O ANG PCTRS Status: Chronic Comment: (7) CKD (chronic kidney disease) stage 3, GFR 30-59 ml/min Code(s): N18.3 - CHRONIC KIDNEY DISEASE, STAGE 3 (MODERATE) Status: Chronic (8) Chronic anticoagulation Code(s): 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 Status: Chronic (9) DM2 (diabetes mellitus, type 2) Status: Chronic Comment: (10) Dyslipidemia Code(s): E78.5 - HYPERLIPIDEMIA, UNSPECIFIED Status: Chronic Comment: (11) HTN (hypertension) Code(s): I10 - ESSENTIAL (PRIMARY) HYPERTENSION Status: Chronic Comment: (12) Obesity (BMI 30-39.9) Code(s): E66.9 - OBESITY, UNSPECIFIED Status: Chronic (13) PAF (paroxysmal atrial fibrillation) Code(s): I48.0 - PAROXYSMAL ATRIAL FIBRILLATION Status: Chronic (14) Hypokalemia Code(s): E87.6 - HYPOKALEMIA Status: Acute (15) Moderate tricuspid regurgitation Code(s): I07.1 - RHEUMATIC TRICUSPID INSUFFICIENCY Status: Chronic (16) Pulmonary hypertension Code(s): I27.20 - PULMONARY HYPERTENSION, UNSPECIFIED Status: Chronic (17) Acute worsening of stage 3 chronic kidney disease Code(s): N18.3 - CHRONIC KIDNEY DISEASE, STAGE 3 (MODERATE) Status: Acute (18) Coagulopathy Status: Acute - Plan cont current plan of care, plan discussed w/ family, respiratory therapy * continue solumedrol * medication reviewed as below * symptomatic treatment * continue duoneb * may be will start bumex tomorrow * prognosis is very poor * high risk for readmission. Review of Systems - Review of Systems Constitutional: weakness. negative: fever, chills, sweats, malaise, other ENT: negative: Ear Pain, Ear Discharge, Nose Pain, Nose Discharge, Nose Congestion, Mouth Pain, Mouth Swelling, Throat Pain, Throat Swelling, Other Respiratory: Shortness of Breath, SOB with Excertion. negative: Cough, Dry, Hemoptysis, Pleuritic Pain, Sputum, Wheezing Cardiovascular: edema. negative: chest pain, palpitations, orthopnea, paroxysmal nocturnal dyspnea, light headedness, other Genitourinary: negative: Dysuria, Frequency, Incontinence, Hematuria, Retention , Other Musculoskeletal: negative: Neck Pain, Shoulder Pain, Arm Pain, Back Pain, Hand Pain, Leg Pain, Foot Pain, Other - Medications/Allergies Allergies/Adverse Reactions: Allergies Allergy/AdvReac Type Severity Reaction Status Date / Time furosemide Allergy Verified 08/04/18 20:57 vancomycin Allergy Verified 08/04/18 15:47 Medications: Current Medications Acetaminophen (Tylenol) 650 mg PO Q4H PRN PRN Reason: Headache/Fever or Pain Hydrocodone Bitart/Acetaminophen ([place] 5/325) 1 tab PO Q4H PRN PRN Reason: Moderate Pain (4-6) Al Hydroxide/Mg Hydroxide (Maalox) 30 ml PO Q6H PRN PRN Reason: Heartburn or Indigestion Albuterol/Ipratropium (Duoneb) 3 ml NEB [id number] [facility] Last Admin: 08/12/18 10:18 Dose: 3 ml Allopurinol (Zyloprim) 100 mg PO DAILY [facility] Last Admin: 08/12/18 09:29 Dose: 100 mg Artificial Tears (Tears Naturale) 0 drop EA EYE PRN PRN PRN Reason: Dry Eyes Aspirin (Aspirin Chewable) 81 mg PO DAILY [facility] Last Admin: 08/12/18 09:29 Dose: 81 mg Atorvastatin Calcium (Lipitor) 20 mg PO DAILY [facility] Last Admin: 08/12/18 09:29 Dose: 20 mg Coenzyme Q10 (Coenzyme Q10) 400 mg PO DAILY [facility] Last Admin: 08/12/18 09:30 Dose: 400 mg Dextrose/Water (Dextrose 50%) 25 gm SLOW IVP PRN PRN PRN Reason: Hypoglycemia Glucagon (Glucagon) 1 mg IM PRN PRN PRN Reason: Hypoglycemia Glyburide (Diabeta) 5 mg PO BID-WM [facility] Last Admin: 08/12/18 09:29 Dose: 5 mg Guaifenesin (Robitussin Sf) 200 mg PO Q4H PRN PRN Reason: Cough Hydralazine HCl (Apresoline) 10 mg SLOW IVP Q4H PRN PRN Reason: Systolic BP > 180 Dextrose/Water (D5w) 1,000 mls @ 0 mls/hr IV .Q0M PRN PRN Reason: Hypoglycemia Insulin Glargine 10 units/ (Miscellaneous Medication) 0.1 mls @ 0 mls/hr SC HS [facility] Last Admin: 08/11/18 20:48 Dose: Not Given Insulin Human Lispro (Humalog) 0 units SC .MODERATE SLIDING SC PRN PRN Reason: Moderate Correctional Scale Last Admin: 08/12/18 05:59 Dose: 6 unit Insulin Human Lispro (Humalog) 0 units SC .BEDTIME SLIDING SC PRN PRN Reason: Bedtime Correctional Scale Last Admin: 08/11/18 20:38 Dose: 3 unit Loperamide HCl (Imodium) 2 mg PO PRN PRN PRN Reason: Diarrhea/Loose Stools Loratadine (Claritin) 10 mg PO DAILYPRN PRN PRN Reason: Sinus Symptoms Magnesium Hydroxide (Milk Of Magnesium) 30 ml PO DAILYPRN PRN PRN Reason: Constipation Methylprednisolone Sodium Succinate (Solu-Medrol) 20 mg IVP Q6HR [facility] Last Admin: 08/12/18 05:59 Dose: 20 mg Mineral Oil/White Petrolatum (Eucerin Cream) 0 gm TOP BIDPRN PRN PRN Reason: Dry Skin Mometasone Furoate/Formoterol Fumar (Dulera 200 Mcg/5 Mcg Inhaler) 1 puff INH BID-RT [facility] Last Admin: 08/12/18 06:42 Dose: 1 puff Nitroglycerin (Nitro-Bid 2% Ointment) 0.5 inch TOP Q6H PRN PRN Reason: SBP>160 Ondansetron HCl (Zofran Odt) 4 mg PO Q6H PRN PRN Reason: Nausea/Vomiting Ondansetron HCl (Zofran) 4 mg IVP Q6H PRN PRN Reason: Nausea/Vomiting Last Admin: 08/08/18 19:29 Dose: 4 mg Phenol (Chloraseptic [place] 180 Ml Bot) 0 ml PO PRN PRN PRN Reason: Sore Throat Potassium Chloride (K-Dur) 20 meq PO BID-[facility] Last Admin: 08/12/18 09:30 Dose: 20 meq Senna (Senokot) 2 tab PO HSPRN PRN PRN Reason: Constipation Sodium Chloride ([place] Nasal [place] 0.65%) 0 ml EA NARE QIDPRN PRN PRN Reason: Nasal Congestion Sodium Chloride (Flush - Normal Saline) 10 ml IVF Q12HR [facility] Last Admin: 08/12/18 09:30 Dose: 10 ml Sodium Chloride (Flush - Normal Saline) 10 ml IVF PRN PRN PRN Reason: Saline Flush Zolpidem Tartrate (Ambien) 5 mg PO HSPRN PRN PRN Reason: Insomnia
[2018-08-12 12:48] LABS: #Lymphocytes 0.6 thou/uL (1.20-3.40); #Monocytes 0.4 thou/uL (0.11-0.59); #Neutrophils 5.9 thou/uL (1.40-6.50); %Basophils 0.2 % (0.0-1.0); %Lymphocytes 8.8 % (21.0-51.0); %Monocytes 5.9 % (0.0-10.0); %Neutrophils 85.1 % (42.0-75.0); Hemoglobin 13.9 g/dL (14.0-18.0); Mean Corpuscular HGB CONC 30.5 g/dL (32.0-36.0); Mean Corpuscular Hemoglobin 25.8 pg (27.0-31.0); Mean Corpuscular Volume 84.5 fL (78.0-98.0); Platelet Count 223 thou/uL (130-400); Red Blood Cell (RBC) Count 5.41 mill/uL (4.70-6.10); White Blood Cell (WBC) Count 6.9 thou/uL (4.8-10.8)
[2018-08-12 13:03] LABS: Anion Gap 19 mmol/L (10-20); BUN (Urea Nitrogen) 90 mg/dL (8.4-25.7); Calc. Creatinine Clearance 51 mL/min (70-130); Calcium 10.2 mg/dL (7.8-10.44); Carbon Dioxide 25 mmol/L (23-31); Chloride 101 mmol/L (98-107); Estimated GFR-MDRD 35; Glucose 308 mg/dL (83-110); Potassium 4.6 mmol/L (3.5-5.1); Sodium 140 mmol/L (136-145)
--- NOTE | 2018-08-12 17:44 | PDOC.CTH ---
Cardiology Progress Note - Subjective No new issues. - Objective Vital Signs Temp Pulse Resp BP Pulse Ox 08/12/18 15:02 97.4 F L 107 H 20 99/64 92 L 08/12/18 14:19 106 H 20 97 08/12/18 10:45 97.9 F 106 H 20 116/72 99 08/12/18 10:18 106 H 20 97 08/12/18 07:46 90 L 08/12/18 07:13 97.9 F 104 H 18 89/49 L 90 L 08/12/18 06:42 103 H 20 91 L 08/12/18 06:21 92 L 08/12/18 06:20 101 H 20 92 L Admit Weight 274 lb 14.4 oz Weight 232 lb 12.8 oz 08/11/18 08/12/18 08/13/18 06:59 06:59 06:59 Intake Total 1150 1095 Output Total 1450 1000 Balance -300 95 - Physical Examination General/Neuro: alert & oriented x3, NAD Neck: no JVD present Lungs: unlabored respirations Heart: RRR Abdomen: NT/ND Extremities: + edema B (4+) - Telemetry Telemetry Rhythm: NSR - Labs Result Diagrams: 08/12/18 12:25 08/12/18 12:25 Troponin/CKMB CK-MB (CK-2) 2.5 ng/mL (0-6.6) 08/08/18 19:17 Troponin I 0.592 ng/mL (< 0.028) H* 08/09/18 00:24 - Assessment/Plan 1. Cor pulmonale 2. CAD 3. s/p CABG 4. Ascites PLAN: - Creatinine slowly improving. - Continues with significant edema peripherally - EF at 55-60% - Continue to Hold diuretics today, likely re challenge tomorrow.
--- NOTE | 2018-08-12 21:04 | PRG ---
DATE OF SERVICE: 08/12/2018 SUBJECTIVE: Mr. Owens is still ready to go home. OBJECTIVE: He is afebrile, heart rate 77, respirations 20, oximetry is 92. He is still on 40% high flow nasal cannula. Intake and output actually was positive 95. We will ask the nurse to see if we get him a standing scale to try to get some macular weights on him see what his true fluid balance. LUNGS: Clear and distant. HEART: Regular rhythm. ABDOMEN: Still protuberant. EXTREMITIES: He still has significant lower extremity edema. LABORATORY DATA: White count 6.9, hemoglobin 13.9, platelets 223. Sodium 140, potassium 4.6, chloride 101, bicarb 25, BUN 90, creatinine 1.9. IMPRESSION: 1. Cor pulmonale. 2. Progressive renal dysfunction secondary to diuresis on top of pulmonary hypertension. PLAN: Continue inpatient management. His fluid balance . He will need very close outpatient f andree. We will continue to follow him while he is in the hospital.
--- NOTE | 2018-08-12 21:37 | PRG ---
DATE OF SERVICE: 08/12/2018 SUBJECTIVE: The patient was seen and examined with no new complaint noted. PHYSICAL EXAMINATION: VITAL SIGNS: Afebrile with temperature 97.4, pulse 106, respiratory rate 20, O2 sat of 92% to 97%, a nd blood pressure 99/64. HEENT: Unremarkable. CARDIOVASCULAR: First and second heart sounds were heard. RESPIRATORY: Clear to auscultation. DIGESTIVE: Revealed an obese abdomen. EXTREMITIES: Showed some peripheral edema. NEUROLOGIC: Alert, oriented. No lateralizing sign. LABORATORY INVESTIGATIONS: Showed a creatinine down to 1.9. IMPRESSION: 1. Hypervolemia, status post diuresis. 2. Acute on chronic kidney disease in the context of diuresis, improving. 3. Right-sided heart failure. PLAN: 1. The patient seems to be improving renal function. However, this is likely to come at the expense of fluid reaccumulation within the next 24 hours likely resume diuretics at a lower dose. 2. Further management to be dependent on the clinical course.
[2018-08-12] MEDS: Insulin Glargine 20 UNITS in Pre-Filled Syringe 1 EACH SC SCH (22:42)
[2018-08-13 04:25] LABS: ALT (SGPT) 23 U/L (8-55); AST (SGOT) 32 U/L (5-34); Albumin 3.6 g/dL (3.4-4.8); Alkaline Phosphatase 76 U/L (40-150); Anion Gap 18 mmol/L (10-20); BUN (Urea Nitrogen) 89 mg/dL (8.4-25.7); Bilirubin, Total 2.5 mg/dL (0.2-1.2); Calc. Creatinine Clearance 55 mL/min (70-130); Calcium 9.9 mg/dL (7.8-10.44); Carbon Dioxide 25 mmol/L (23-31); Chloride 104 mmol/L (98-107); Estimated GFR-MDRD 38; Globulin 3.4 g/dL (2.4-3.5); Glucose 231 mg/dL (83-110); Magnesium 2.4 mg/dL (1.6-2.6); Phosphorus 3.3 mg/dL (2.3-4.7); Sodium 142 mmol/L (136-145)
[2018-08-13 04:59] LABS: #Lymphocytes 0.4 thou/uL (1.20-3.40); #Monocytes 0.3 thou/uL (0.11-0.59); #Neutrophils 6.3 thou/uL (1.40-6.50); %Eosinophils 0.1 % (0.0-10.0); %Lymphocytes 5.3 % (21.0-51.0); %Monocytes 4.6 % (0.0-10.0); %Neutrophils 89.9 % (42.0-75.0); Anisocytosis MODERATE=16-30 cells (100X) (0-5/hpf); Hemoglobin 13.2 g/dL (14.0-18.0); MDiff Complete? YES; Mean Corpuscular HGB CONC 29.8 g/dL (32.0-36.0); Mean Corpuscular Hemoglobin 25.2 pg (27.0-31.0); Mean Corpuscular Volume 84.3 fL (78.0-98.0); Mean Platelet Volume 10.7 fL (7.4-10.4); Platelet Count 204 thou/uL (130-400); RBC Distribution Width 20.1 % (11.5-14.5); Red Blood Cell (RBC) Count 5.24 mill/uL (4.70-6.10)
[2018-08-13 05:09] LABS: Prothrombin Time 52.7 SEC (12.0-14.7)
[2018-08-13 05:12] LABS: INR-International Normal Ratio 5.9
[2018-08-13] MEDS: HumaLOG 300 UNITS/3 ML VIAL SC PRN ×4 (05:54→20:28)
[2018-08-13] MEDS: Mometasone/Formoterol 120 PUFF INHALER INH SCH ×2 (07:51→18:20)
--- NOTE | 2018-08-13 08:01 | PRG ---
DATE OF SERVICE: 08/13/2018 SUBJECTIVE: The patient is doing reasonably well this morning. There has been no legitimate attempt to wean his high flow oxygen over the weekend. PHYSICAL EXAMINATION: VITAL SIGNS: His temperature is 97.5, pulse 100, respirations 24, O2 saturations running between 97% to 100% on high flow oxygen, blood pressure 95/53. HEENT: Unremarkable. NECK: No JVD. LUNGS: No crackles. HEART: S1, S2, irregularly irregular. ABDOMEN: Soft, nontender. EXTREMITIES: 3+ edema from his knees downward. LABORATORY DATA: Sodium 142, potassium 5, chloride 104, CO2 of 25, BUN 89, creatinine 1.7, glucose 2 31. BNP 1597. White blood cell count 7, hematocrit 44.2, platelet count 204. ASSESSMENT: 1. Congestive heart failure, mainly right-sided failure. 2. Cor pulmonale. 3. Severe hypoxemia. 4. Atrial fibrillation. 5. Supratherapeutic INR. PLAN: The patient will be kept in IMCU. We will attempt to wean him down to a nasal cannula today. His warfarin is being held because of the supratherapeutic INR. He continues on low dose steroids. At some point, diuretics will likely need to be added back to his regimen.
[2018-08-13] MEDS ORDERED: Bumetanide 1 MG TAB PO SCH (09:00)
[2018-08-13] MEDS: glyBURIDE 5 MG TAB PO SCH ×2 (09:50→17:07)
[2018-08-13] MEDS: Potassium Chloride 20 MEQ TAB PO SCH ×2 (09:50→17:07)
[2018-08-13] MEDS: Atorvastatin Calcium 20 MG TAB PO SCH (09:51)
[2018-08-13] MEDS: Ubidecarenone 50 MG CAP PO SCH (09:51)
[2018-08-13] MEDS: Allopurinol 100 MG TAB PO SCH (09:51)
--- NOTE | 2018-08-13 10:37 | PDOC.PN ---
- Subjective Encounter Start Date: 08/13/18 Encounter Start Time: 09:50 Patient seen and examined. No new complaints. No overnight events no bleeding fro m any site - Objective Resuscitation Status: Resuscitation Status FULL:Full Resuscitation MAR Reviewed: Yes Vital Signs & Weight: Vital Signs (12 hours) Temp Pulse Resp BP Pulse Ox 08/13/18 07:50 94 L 08/13/18 07:47 109 H 18 94 L 08/13/18 03:52 97.5 F L 100 24 H 95/53 L 90 L 08/13/18 02:14 97 08/13/18 02:13 97 08/12/18 23:43 97.4 F L 108 H 16 94/59 L 100 08/12/18 22:57 98 Weight Admit Weight 274 lb 14.4 oz Weight 230 lb 2 oz I&O: 08/12/18 08/13/18 08/14/18 06:59 06:59 06:59 Intake Total 1095 360 Output Total 1000 1300 Balance 95 -940 Result Diagrams: 08/13/18 03:52 08/13/18 03:52 Additional Labs: Accuchecks 08/13/18 08/12/18 08/12/18 05:30 20:44 16:34 POC Glucose 210 H 215 H 331 H 08/12/18 08/12/18 10:29 05:38 POC Glucose 427 H 256 H EKG Reviewed by me: Yes (nsr) Phys Exam - Physical Examination Constitutional: NAD HEENT: PERRLA, moist MMs, sclera anicteric Neck: supple Respiratory: no wheezing, no rales, no rhonchi 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 Cardiovascular: RRR, no rub Gastrointestinal: soft, positive bowel sounds ascites+ Musculoskeletal: pulses present, edema present Neurological: non-focal, normal sensation Lymphatic: no nodes Psychiatric: normal affect, A&O x 3 Skin: no rash, normal turgor Dx/Plan (1) Acute on chronic diastolic ACC/AHA stage C congestive heart failure Code(s): I50.33 - ACUTE ON CHRONIC DIASTOLIC (CONGESTIVE) HEART FAILURE Status : Acute (2) Acute on chronic respiratory failure with hypoxia Code(s): J96.21 - ACUTE AND CHRONIC RESPIRATORY FAILURE WITH HYPOXIA Status: Acute (3) Anasarca Code(s): R60.1 - GENERALIZED EDEMA Status: Acute (4) Ascites Code(s): R18.8 - OTHER ASCITES Status: Acute (5) Hyperuricemia Code(s): E79.0 - HYPERURICEMIA W/O SIGNS OF INFLAM ARTHRIT AND TOPHACEOUS DIS Status: Acute (6) CAD (coronary artery disease) Code(s): I25.10 - ATHSCL HEART DISEASE OF [place] CORONARY ARTERY W/O ANG PCTRS Status: Chronic Comment: (7) CKD (chronic kidney disease) stage 3, GFR 30-59 ml/min Code(s): N18.3 - CHRONIC KIDNEY DISEASE, STAGE 3 (MODERATE) Status: Chronic (8) Chronic anticoagulation Code(s): Z79.01 - Status: Chronic (9) DM2 (diabetes mellitus, type 2) Status: Chronic Comment: (10) Dyslipidemia Code(s): E78.5 - HYPERLIPIDEMIA, UNSPECIFIED Status: Chronic Comment: (11) HTN (hypertension) Code(s): I10 - ESSENTIAL (PRIMARY) HYPERTENSION Status: Chronic Comment: (12) Obesity (BMI 30-39.9) Code(s): E66.9 - OBESITY, UNSPECIFIED Status: Chronic (13) PAF (paroxysmal atrial fibrillation) Code(s): I48.0 - PAROXYSMAL ATRIAL FIBRILLATION Status: Chronic (14) Hypokalemia Code(s): E87.6 - HYPOKALEMIA Status: Acute (15) Moderate tricuspid regurgitation Code(s): I07.1 - RHEUMATIC TRICUSPID INSUFFICIENCY Status: Chronic (16) Pulmonary hypertension Code(s): I27.20 - PULMONARY HYPERTENSION, UNSPECIFIED Status: Chronic (17) Acute worsening of stage 3 chronic kidney disease Code(s): N18.3 - CHRONIC KIDNEY DISEASE, STAGE 3 (MODERATE) Status: Acute (18) Coagulopathy Status: Acute - Plan cont current plan of care, social insurance specialist, respiratory therapy * today we have reduced flow of oxygen * will see how he does today and ambulate as tolerated * bumex started today * monitor renal function * his prognosis is poor, palliative care on case * he is high risk for readmission * medication reviewed as below * symptomatic treatment. * monitor inr, he is off warfarin Review of Systems - Review of Systems Constitutional: weakness Eyes: negative: Pain, Vision Change, Conjunctivae Inflammation, Eyelid Inflammation, Redness, Other ENT: negative: Ear Pain, Ear Discharge, Nose Pain, Nose Discharge, Nose Congestion, Mouth Pain, Mouth Swelling, Throat Pain, Throat Swelling, Other Respiratory: Shortness of Breath, SOB with Excertion. negative: Cough, Dry, Hemoptysis, Pleuritic Pain, Sputum, Wheezing Cardiovascular: edema. negative: chest pain, palpitations, orthopnea, paroxysmal nocturnal dyspnea, light headedness, other Gastrointestinal: negative: Nausea, Vomiting, Abdominal Pain, Diarrhea, Constipation, Melena, Hematochezia, Other Genitourinary: negative: Dysuria, Frequency, Incontinence, Hematuria, Retention , Other Musculoskeletal: negative: Neck Pain, Shoulder Pain, Arm Pain, Back Pain, Hand Pain, Leg Pain, Foot Pain, Other - Medications/Allergies Allergies/Adverse Reactions: Allergies Allergy/AdvReac Type Severity Reaction Status Date / Time furosemide Allergy Verified 08/04/18 20:57 vancomycin Allergy Verified 08/04/18 15:47 Medications: Current Medications Acetaminophen (Tylenol) 650 mg PO Q4H PRN PRN Reason: Headache/Fever or Pain Hydrocodone Bitart/Acetaminophen ([place] 5/325) 1 tab PO Q4H PRN PRN Reason: Moderate Pain (4-6) Al Hydroxide/Mg Hydroxide (Maalox) 30 ml PO Q6H PRN PRN Reason: Heartburn or Indigestion Albuterol/Ipratropium (Duoneb) 3 ml NEB [id number] [facility] Last Admin: 08/13/18 07:47 Dose: 3 ml Allopurinol (Zyloprim) 100 mg PO DAILY [facility] Last Admin: 08/13/18 09:51 Dose: 100 mg Artificial Tears (Tears Naturale) 0 drop EA EYE PRN PRN PRN Reason: Dry Eyes Aspirin (Aspirin Chewable) 81 mg PO DAILY [facility] Last Admin: 08/13/18 09:51 Dose: 81 mg Atorvastatin Calcium (Lipitor) 20 mg PO DAILY [facility] Last Admin: 08/13/18 09:51 Dose: 20 mg Bumetanide (Bumex) 2 mg PO BID-[facility] Bumetanide (Bumex) 2 mg PO 0900 [facility] Stop: 08/13/18 11:00 Last Admin: 08/13/18 09:52 Dose: 2 mg Coenzyme Q10 (Coenzyme Q10) 400 mg PO DAILY [facility] Last Admin: 08/13/18 09:51 Dose: 400 mg Dextrose/Water (Dextrose 50%) 25 gm SLOW IVP PRN PRN PRN Reason: Hypoglycemia Glucagon (Glucagon) 1 mg IM PRN PRN PRN Reason: Hypoglycemia Glyburide (Diabeta) 5 mg PO BID-[facility] Last Admin: 08/13/18 09:50 Dose: 5 mg Guaifenesin (Robitussin Sf) 200 mg PO Q4H PRN PRN Reason: Cough Hydralazine HCl (Apresoline) 10 mg SLOW IVP Q4H PRN PRN Reason: Systolic BP > 180 Dextrose/Water (D5w) 1,000 mls @ 0 mls/hr IV .Q0M PRN PRN Reason: Hypoglycemia Insulin Glargine 20 units/ (Miscellaneous Medication) 0.2 mls @ 0 mls/hr SC [facility] Last Admin: 08/12/18 22:42 Dose: Not Given Insulin Human Lispro (Humalog) 0 units SC .MODERATE SLIDING SC PRN PRN Reason: Moderate Correctional Scale Last Admin: 08/13/18 05:54 Dose: 4 unit Insulin Human Lispro (Humalog) 0 units SC .BEDTIME SLIDING SC PRN PRN Reason: Bedtime Correctional Scale Last Admin: 08/12/18 21:17 Dose: 2 unit Loperamide HCl (Imodium) 2 mg PO PRN PRN PRN Reason: Diarrhea/Loose Stools Loratadine (Claritin) 10 mg PO DAILYPRN PRN PRN Reason: Sinus Symptoms Magnesium Hydroxide (Milk Of Magnesium) 30 ml PO DAILYPRN PRN PRN Reason: Constipation Methylprednisolone Sodium Succinate (Solu-Medrol) 20 mg IVP Q6HR [facility] Last Admin: 08/13/18 05:54 Dose: 20 mg Mineral Oil/White Petrolatum (Eucerin Cream) 0 gm TOP BIDPRN PRN PRN Reason: Dry Skin Mometasone Furoate/Formoterol Fumar (Dulera 200 Mcg/5 Mcg Inhaler) 1 puff INH BID-RT [facility] Last Admin: 08/13/18 07:51 Dose: 1 puff Nitroglycerin (Nitro-Bid 2% Ointment) 0.5 inch TOP Q6H PRN PRN Reason: SBP>160 Ondansetron HCl (Zofran Odt) 4 mg PO Q6H PRN PRN Reason: Nausea/Vomiting Ondansetron HCl (Zofran) 4 mg IVP Q6H PRN PRN Reason: Nausea/Vomiting Last Admin: 08/08/18 19:29 Dose: 4 mg Phenol (Chloraseptic [place] 180 Ml Bot) 0 ml PO PRN PRN PRN Reason: Sore Throat Potassium Chloride (K-Dur) 20 meq PO BID-[facility] Last Admin: 08/13/18 09:50 Dose: 20 meq Senna (Senokot) 2 tab PO HSPRN PRN PRN Reason: Constipation Sodium Chloride ([place] Nasal [place] 0.65%) 0 ml EA NARE QIDPRN PRN PRN Reason: Nasal Congestion Sodium Chloride (Flush - Normal Saline) 10 ml IVF Q12HR [facility] Last Admin: 08/13/18 09:53 Dose: 10 ml Sodium Chloride (Flush - Normal Saline) 10 ml IVF PRN PRN PRN Reason: Saline Flush Last Admin: 08/13/18 05:54 Dose: 10 ml Zolpidem Tartrate (Ambien) 5 mg PO HSPRN PRN PRN Reason: Insomnia
--- NOTE | 2018-08-13 13:47 | PRG ---
DATE OF SERVICE: 08/13/2018 SUBJECTIVE: Mr. Owens is doing better. He has lost 44 pounds since this admission 1 week ago. His creatinine has also stabilized. PHYSICAL EXAMINATION: VITAL SIGNS: Blood pressure , temperature afebrile. LUNGS: Clear to auscultation. HEART: Regular rate and rhythm. ABDOMEN: Soft, nontender. Positive distention. EXTREMITIES: 1+ pitting edema. PERTINENT LABORATORY DATA: Hemoglobin 13.2, creatinine 1.76 down from 1.9. IMPRESSION: 1. Cor pulmonale. 2. Coronary artery disease. 3. Status post bypass surgery. 4. Chronic obstructive pulmonary disease. RECOMMENDATIONS: Mr. Owens continues to improve. He has diuresed significantly. We will continue current treatment. From a CV standpoint, I have no further recommendations.
[2018-08-13] MEDS: Bumetanide 1 MG TAB PO SCH (17:07)
[2018-08-13] MEDS: Insulin Glargine 20 UNITS in Pre-Filled Syringe 1 EACH SC SCH (20:27)
[2018-08-14 04:25] LABS: #Lymphocytes 0.5 thou/uL (1.20-3.40); #Monocytes 0.6 thou/uL (0.11-0.59); #Neutrophils 8.7 thou/uL (1.40-6.50); %Basophils 0.1 % (0.0-1.0); %Lymphocytes 4.9 % (21.0-51.0); %Monocytes 5.8 % (0.0-10.0); %Neutrophils 89.2 % (42.0-75.0); Hemoglobin 13.5 g/dL (14.0-18.0); Mean Corpuscular HGB CONC 29.9 g/dL (32.0-36.0); Mean Corpuscular Hemoglobin 25.3 pg (27.0-31.0); Mean Corpuscular Volume 84.8 fL (78.0-98.0); Platelet Count 227 thou/uL (130-400); RBC Distribution Width 20.2 % (11.5-14.5); Red Blood Cell (RBC) Count 5.33 mill/uL (4.70-6.10); White Blood Cell (WBC) Count 9.8 thou/uL (4.8-10.8)
[2018-08-14 04:27] LABS: Prothrombin Time 50.1 SEC (12.0-14.7)
[2018-08-14 04:29] LABS: INR-International Normal Ratio 5.5
[2018-08-14 04:39] LABS: Anion Gap 22 mmol/L (10-20); BUN (Urea Nitrogen) 99 mg/dL (8.4-25.7); Calc. Creatinine Clearance 51 mL/min (70-130); Calcium 10.5 mg/dL (7.8-10.44); Carbon Dioxide 26 mmol/L (23-31); Chloride 98 mmol/L (98-107); Estimated GFR-MDRD 36; Glucose 362 mg/dL (83-110); Potassium 3.8 mmol/L (3.5-5.1); Sodium 142 mmol/L (136-145)
[2018-08-14] MEDS: HumaLOG 300 UNITS/3 ML VIAL SC PRN ×3 (06:05→18:05)
--- NOTE | 2018-08-14 07:16 | PDOC.CTH ---
Cardiology Progress Note - Subjective NO significant changes overnight. Pt does appear weak - Objective Vital Signs Temp Pulse Resp BP BP Pulse Ox 08/14/18 06:52 110 H 16 94 L 08/14/18 04:00 97.2 F L 112 H 21 H 112/65 95 08/14/18 02:10 92 L 08/14/18 02:09 93 L 08/14/18 00:00 97.9 F 111 H 22 H 92/53 L 100 08/13/18 23:09 100 16 92 L 08/13/18 19:49 97.3 F L 112 H 31 H 97/58 L 94 L Admit Weight 274 lb 14.4 oz Weight 227 lb 4 oz 08/13/18 08/14/18 08/15/18 06:59 06:59 06:59 Intake Total 360 900 Output Total 1300 4275 Balance -940 -1575 - Physical Examination General/Neuro: alert & oriented x3, NAD Neck: carotid US brisk, no JVD present Lungs: CTA, unlabored respirations Heart: PMI normal, RRR Abdomen: no HSM, NT/ND, soft, other: Extremities: + edema B - Labs Result Diagrams: 08/14/18 03:38 08/14/18 03:38 Troponin/CKMB CK-MB (CK-2) 2.5 ng/mL (0-6.6) 08/08/18 19:17 Troponin I 0.592 ng/mL (< 0.028) H* 08/09/18 00:24 - Assessment/Plan Right sided failure CAD s/p CABG afib Renal insufficiency Continues to diurese despite no diuretics. Creatinine stabling EF overall normal Right sided failure likely multifactorial (chronic condition) hold coumadin secondary to INR of 5.5 Add low dose CCB for rate control
--- NOTE | 2018-08-14 08:10 | PRG ---
DATE OF SERVICE: 08/13/2018 SUBJECTIVE: The patient is seen and examined today with no new complaint noted with the following vi cornel signs. PHYSICAL EXAMINATION: VITAL SIGNS: Afebrile with temperature 97.4, pulse 109 to 110, respiratory rate of 22, O2 sat of 96% on 4 liters with a blood pressure 106/53. HEENT: Unremarkable with moist oral mucosa. Neck is supple. No conjunctival injection without icte eulalia. CARDIOVASCULAR: First and second heart sounds were heard. RESPIRATORY: Clear to auscultation anteriorly. ABDOMEN: Digestive system revealed an obese abdomen. EXTREMITIES: Significant peripheral edema. NEUROLOGIC: Alert and oriented. No lateralizing signs. LYMPHATICS: No peripheral lymphadenopathy. LABORATORY INVESTIGATION: Showed hemoglobin of 13.2. Chemistry showed a creatinine down to 1.76 wit h BUN of 89. BNP of 1597. IMPRESSION: 1. Acute on chronic kidney disease in the context of diuresis . 2. Hypervolemia, responded well to diuretics. 3. Right-sided heart failure with significant peripheral edema. PLAN: 1. The patient to resume diuretic regimen. 2. Further management to be dependent on the clinical course. Meanwhile, we will continue on renal supportive measures.
--- NOTE | 2018-08-14 08:11 | PRG ---
DATE OF SERVICE: 08/2018 He feels a little better, had no acute complaints. PHYSICAL EXAMINATION: VITAL SIGNS: Temperature 97.5, pulse 110, respirations 15, O2 sats 91% on 3 liters, blood pressure 1 00/59, total intake for the last 24 hours 900, output 4275. HEENT: Unremarkable. NECK: No JVD. LUNGS: Clear without wheezing. CARDIAC: S1 and S2 regular. ABDOMEN: Soft. EXTREMITIES: 2+ edema from the knees downward. LABORATORY DATA: Sodium 140, potassium 3.8, chloride 98, CO2 26, BUN 99, creatinine 1.8, glucose 362 , calcium 10.5. White blood cell count 9.8, hematocrit 45.2, platelet count 227. ASSESSMENT: 1. Acute on chronic renal failure. 2. Cor pulmonale with congestive failure. 3. Severe hypoxemia which is better. 4. Underlying chronic obstructive pulmonary disease. 5. Atrial fibrillation. 6. Continued supratherapeutic INR. PLAN: The patient is stable for transfer to the Telemetry Unit. He is continuing diuretics. Coumad in is being held. I will go ahead and decrease the steroid dose.
[2018-08-14] MEDS: Bumetanide 1 MG TAB PO SCH ×2 (08:59→18:05)
[2018-08-14] MEDS: Atorvastatin Calcium 20 MG TAB PO SCH (09:00)
[2018-08-14] MEDS: Potassium Chloride 20 MEQ TAB PO SCH ×2 (09:00→18:05)
[2018-08-14] MEDS: glyBURIDE 5 MG TAB PO SCH ×2 (09:00→18:05)
[2018-08-14] MEDS: Allopurinol 100 MG TAB PO SCH (09:00)
[2018-08-14] MEDS: Ubidecarenone 50 MG CAP PO SCH (09:01)
[2018-08-14] MEDS: Mometasone/Formoterol 120 PUFF INHALER INH SCH ×2 (10:56→19:38)
[2018-08-14] MEDS: predniSONE 5 MG TAB PO SCH (11:30)
[2018-08-14] MEDS ORDERED: Diltiazem HCl SR 60 mg Capsule PO SCH (13:15)
--- NOTE | 2018-08-14 18:07 | PDOC.PN ---
- Subjective Encounter Start Date: 08/14/18 Encounter Start Time: 17:50 Subjective: f/u for acute/chronic diast CHF with LE edema. States feeling better -: and ambulating in room. - Objective Resuscitation Status: Resuscitation Status FULL:Full Resuscitation MAR Reviewed: Yes Vital Signs & Weight: Vital Signs (12 hours) Temp Pulse Pulse Pulse Resp BP BP 08/14/18 15:41 97.7 F 115 H 24 H 08/14/18 14:59 102 H 20 08/14/18 14:05 106 H 100 117/69 107/61 08/14/18 11:18 98.0 F 112 H 08/14/18 10:55 110 H 20 08/14/18 07:41 97.5 F L 110 H 15 08/14/18 06:52 110 H 16 BP BP Pulse Ox Pulse Ox Pulse Ox 08/14/18 15:41 106/64 08/14/18 14:59 92 L 08/14/18 14:05 90 L 90 L 08/14/18 11:18 110/65 97 08/14/18 10:55 94 L 08/14/18 07:41 100/59 L 91 L 08/14/18 06:52 94 L Weight Admit Weight 274 lb 14.4 oz Weight 227 lb 4 oz I&O: 08/13/18 08/14/18 08/15/18 06:59 06:59 06:59 Intake Total 360 900 600 Output Total 1300 4275 1950 Balance 800 -3375 -1350 Result Diagrams: 08/14/18 03:38 08/14/18 03:38 Additional Labs: Accuchecks 08/14/18 08/14/18 08/14/18 16:50 10:46 05:56 POC Glucose 225 H 270 H 329 H 08/13/18 20:08 POC Glucose 328 H Laboratory Tests 08/11/18 08/12/18 08/12/18 06:58 03:51 12:25 INR 4.7 H* Creatinine 2.22 H 1.90 H 08/13/18 08/13/18 08/14/18 03:52 03:52 03:38 INR 5.9 H* 5.5 H* Creatinine 1.76 H EKG Reviewed by me: Yes (Tele - A-fib in 90's) Phys Exam - Physical Examination Constitutional: NAD HEENT: PERRLA, sclera anicteric, oral pharynx no lesions Neck: no nodes, no JVD, supple, full ROM basilar crackles Respiratory: no wheezing Cardiovascular: no rub, gallop, irregular Gastrointestinal: soft, non-tender, no distention, positive bowel sounds Musculoskeletal: pulses present, edema present Neurological: normal sensation, moves all 4 limbs Psychiatric: normal affect, A&O x 3 Skin: normal turgor, cap refill <2 seconds Dx/Plan (1) Acute on chronic diastolic ACC/AHA stage C congestive heart failure Code(s): I50.33 - ACUTE ON CHRONIC DIASTOLIC (CONGESTIVE) HEART FAILURE Status : Acute Comment: Continue diuresis with Bumex, serial I/O's, daily weight (2) Supratherapeutic INR Code(s): R79.1 - ABNORMAL COAGULATION PROFILE Status: Acute Comment: Hold anticoagulation, avoid NSAIDs (3) Acute on chronic respiratory failure with hypoxia Code(s): J96.21 - ACUTE AND CHRONIC RESPIRATORY FAILURE WITH HYPOXIA Status: Acute Comment: Improved with diuresis, wean off O2 as clinically indicated (4) Acute worsening of stage 3 chronic kidney disease Code(s): N18.3 - CHRONIC KIDNEY DISEASE, STAGE 3 (MODERATE) Status: Acute Comment: Avoid nephrotoxic meds and limit contrast exposure (5) Anasarca Code(s): R60.1 - GENERALIZED EDEMA Status: Acute Comment: LE edema persists , continue Bumex, compression stockings, ambulate (6) Chronic anticoagulation Code(s): Z79.01 - 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 etiology (7) Cor pulmonale (chronic) Code(s): I27.81 - COR PULMONALE (CHRONIC) Status: Chronic - Plan PT/OT, out of bed/ambulate Stable currently -: Accurate daily weights -: continue Bumex -: continue Diltiazem -: AM lab: BMP, CBC, PT/INR * .
[2018-08-14] MEDS: Insulin Glargine 20 UNITS in Pre-Filled Syringe 1 EACH SC SCH (20:37)
--- NOTE | 2018-08-15 03:37 | PRG ---
DATE OF SERVICE: 08/14/2018 SUBJECTIVE: The patient was seen and examined, noted with the following vital signs. PHYSICAL EXAMINATION: VITAL SIGNS: Afebrile with temperature 97.4, pulse 112, respiratory rate of 18, O2 sat of 92%, blood pressure 114/56. HEENT: Unremarkable. CARDIOVASCULAR SYSTEM: First and second heart sounds were heard. RESPIRATORY SYSTEM: Clear to auscultation. DIGESTIVE SYSTEM: Revealed a benign abdomen with positive bowel sounds. EXTREMITIES: No peripheral edema. SKIN: No new gross rash. LYMPHATICS: No peripheral lymphadenopathy. Input and output showed urine output of about . LABORATORY INVESTIGATIONS: Showed a creatinine of 1.8, BUN of 99. IMPRESSION: 1. Acute on chronic kidney disease in the context of diuresis. 2. Hypervolemia. 3. Right-sided heart failure. 4. Chronic kidney disease. PLAN: 1. The patient to continue with diuresis. 2. I do agree with weaning down the steroid treatment in this patient. 3. Further management will be dependent on the clinical course. Please do bladder training and disc ontinue the Hernandez catheter in this patient.
[2018-08-15 05:22] LABS: Prothrombin Time 52.8 SEC (12.0-14.7)
[2018-08-15 05:29] LABS: Anion Gap 19 mmol/L (10-20); BUN (Urea Nitrogen) 99 mg/dL (8.4-25.7); Calc. Creatinine Clearance 55 mL/min (70-130); Calcium 10.1 mg/dL (7.8-10.44); Carbon Dioxide 31 mmol/L (23-31); Chloride 98 mmol/L (98-107); Estimated GFR-MDRD 39; Glucose 277 mg/dL (83-110); Potassium 3.1 mmol/L (3.5-5.1); Sodium 145 mmol/L (136-145)
[2018-08-15 06:33] LABS: INR-International Normal Ratio 5.9
[2018-08-15 07:08] LABS: #Lymphocytes 0.5 thou/uL (1.20-3.40); #Monocytes 1.1 thou/uL (0.11-0.59); #Neutrophils 13.3 thou/uL (1.40-6.50); %Eosinophils 0.1 % (0.0-10.0); %Lymphocytes 3.2 % (21.0-51.0); %Monocytes 7.3 % (0.0-10.0); %Neutrophils 89.4 % (42.0-75.0); Hemoglobin 13.1 g/dL (14.0-18.0); Mean Corpuscular HGB CONC 30.6 g/dL (32.0-36.0); Mean Corpuscular Hemoglobin 25.7 pg (27.0-31.0); Mean Platelet Volume 11.2 fL (7.4-10.4); Platelet Count 190 thou/uL (130-400); RBC Distribution Width 20.1 % (11.5-14.5); Red Blood Cell (RBC) Count 5.11 mill/uL (4.70-6.10); White Blood Cell (WBC) Count 14.9 thou/uL (4.8-10.8)
[2018-08-15] MEDS: Mometasone/Formoterol 120 PUFF INHALER INH SCH ×2 (07:12→18:39)
--- NOTE | 2018-08-15 08:35 | PRG ---
DATE OF SERVICE: 08/15/2018 SUBJECTIVE: The patient is doing reasonably well, he had no acute complaints. PHYSICAL EXAMINATION: VITAL SIGNS: Temperature 96.7, pulse 100, respirations 20, O2 saturation 97% on 3 liters, blood pres sure 100/62. HEENT: Unremarkable. NECK: No JVD. LUNGS: Clear, but distant breath sounds. CARDIAC: S1 and S2 regular. ABDOMEN: Soft, nontender. EXTREMITIES: 1+ edema from knees downward. LABORATORY DATA: White blood cell count 14.9, hemoglobin 13, hematocrit 42.9, platelet count 190. I NR is 5.9. Sodium 140, potassium 3.1, chloride 98, CO2 31, BUN 99, creatinine 1.7, glucose 277. ASSESSMENT: 1. Cor pulmonale. 2. Chronic obstructive pulmonary disease. 3. Hypoxemia, which is improved. 4. Supratherapeutic INR, which I think is from his underlying use of Coumadin on top of some chronic liver disease. 5. Atrial fibrillation. RECOMMENDATION: His Coumadin continues to be held. I weaned his prednisone down yesterday. This is mainly a rehab issue. His INR needs to continue to be evaluated. He may end up needing some vitami n K if we do see a trend downward in the next day.
[2018-08-15] MEDS: Ubidecarenone 50 MG CAP PO SCH (08:41)
[2018-08-15] MEDS: glyBURIDE 5 MG TAB PO SCH ×2 (08:42→17:34)
[2018-08-15] MEDS: Atorvastatin Calcium 20 MG TAB PO SCH (08:42)
[2018-08-15] MEDS: Bumetanide 1 MG TAB PO SCH ×2 (08:43→17:34)
[2018-08-15] MEDS: Allopurinol 100 MG TAB PO SCH (08:43)
[2018-08-15] MEDS: Potassium Chloride 20 MEQ TAB PO SCH ×2 (08:44→17:34)
[2018-08-15] MEDS: HumaLOG 300 UNITS/3 ML VIAL SC PRN ×2 (11:35→17:44)
[2018-08-15] MEDS: predniSONE 5 MG TAB PO SCH (11:36)
[2018-08-15] MEDS ORDERED: Potassium Chloride 20 MEQ TAB PO SCH (18:00)
--- NOTE | 2018-08-15 19:13 | PRG ---
DATE OF SERVICE: 08/15/2018 SUBJECTIVE: The patient seen and examined, very eager to go home, always asking about when he is goi ng to go home, otherwise noted with the following vital signs. PHYSICAL EXAMINATION: VITAL SIGNS: Afebrile with temperature 97.5, pulse 108 to 111, respiratory rate of 20, O2 sat 95% on 4 liters with a blood pressure 107/55. HEENT: Unremarkable. CARDIOVASCULAR: First and second heart sounds were heard. RESPIRATORY SYSTEM: Clear to auscultation. ABDOMEN: Digestive system revealed an obese abdomen. EXTREMITIES: About 3+ peripheral edema. LABORATORY INVESTIGATION: Showed a creatinine down to 1.76. The weight of this patient is about 215 pounds. This is approximately 60 pounds weight loss since admission. IMPRESSION: 1. Hypervolemia responded well to diuretics. Patient has lost approximately 60 pounds over the past few days. 2. Right likely right-sided heart failure. 3. Acute on chronic kidney disease in the context of diuresis seems to be improving. 4. Hypokalemia. PLAN: 1. The patient to continue with current diuretic regimen. 2. Disposition planning will be dependent on the recommendation of the physical therapy. 3. Close outpatient Nephrology followup, status post discharge strongly recommended. 4. We will replete potassium as the patient's potassium noted to be 3.1.
[2018-08-15] MEDS ORDERED: Phytonadione 10 MG/ML AMP PO SCH (20:30)
--- NOTE | 2018-08-15 20:33 | PDOC.PN ---
- Subjective Encounter Start Date: 08/15/18 Encounter Start Time: 19:35 Subjective: f/u for acute/chronic diast CHF with 55+lb weight loss. Feels better overal -: and less LE edema. - Objective Resuscitation Status: Resuscitation Status DNR:Do Not Resuscitate MAR Reviewed: Yes Vital Signs & Weight: Vital Signs (12 hours) Temp Pulse Resp BP BP Pulse Ox 08/15/18 18:38 88 20 94 L 08/15/18 14:54 97.5 F L 111 H 20 107/55 L 95 08/15/18 14:04 108 H 18 93 L 08/15/18 11:42 97.4 F L 112 H 20 96/54 L 94 L 08/15/18 10:44 112 H 20 95 08/15/18 08:46 97.4 F L 112 H 20 110/56 L 92 L Weight Admit Weight 274 lb 14.4 oz Weight 215 lb 11.2 oz I&O: 08/14/18 08/15/18 08/16/18 06:59 06:59 06:59 Intake Total 900 600 900 Output Total 4275 1950 900 Balance -3375 -1350 0 Result Diagrams: 08/15/18 04:46 08/15/18 04:46 Additional Labs: Accuchecks 08/15/18 08/15/18 08/15/18 16:58 11:00 05:54 POC Glucose 171 H 326 H 264 H 08/14/18 20:40 POC Glucose 258 H Laboratory Tests 08/11/18 08/12/18 08/12/18 06:58 03:51 12:25 INR 4.7 H* Creatinine 2.22 H 1.90 H 08/13/18 08/13/18 08/14/18 03:52 03:52 03:38 INR 5.9 H* 5.5 H* Creatinine 1.76 H 08/15/18 04:46 INR 5.9 H* Creatinine EKG Reviewed by me: Yes (Tele - A-fib in low 100's) Phys Exam - Physical Examination Constitutional: NAD HEENT: PERRLA, sclera anicteric, oral pharynx no lesions Neck: no nodes, no JVD, supple, full ROM Respiratory: no wheezing, no rales, no rhonchi, clear to auscultation bilateral tachycardic S1, S2 Cardiovascular: no rub, irregular Gastrointestinal: soft, non-tender, no distention, positive bowel sounds Musculoskeletal: pulses present, edema present Neurological: normal sensation, moves all 4 limbs Psychiatric: normal affect, A&O x 3 Skin: normal turgor, cap refill <2 seconds Dx/Plan (1) Acute on chronic diastolic ACC/AHA stage C congestive heart failure Code(s): I50.33 - ACUTE ON CHRONIC DIASTOLIC (CONGESTIVE) HEART FAILURE Status : Acute Comment: Continue diuresis with Bumex, serial I/O's, daily weight (2) Supratherapeutic INR Code(s): R79.1 - ABNORMAL COAGULATION PROFILE Status: Acute Comment: Hold anticoagulation, avoid NSAIDs, Vit K 5mg po x 1 today (3) Acute on chronic respiratory failure with hypoxia Code(s): J96.21 - ACUTE AND CHRONIC RESPIRATORY FAILURE WITH HYPOXIA Status: Acute Comment: Improved with diuresis, wean off O2 as clinically indicated (4) Acute worsening of stage 3 chronic kidney disease Code(s): N18.3 - CHRONIC KIDNEY DISEASE, STAGE 3 (MODERATE) Status: Acute Comment: Avoid nephrotoxic meds and limit contrast exposure (5) Anasarca Code(s): R60.1 - GENERALIZED EDEMA Status: Acute Comment: LE edema persists , continue Bumex, compression stockings, ambulate (6) Chronic anticoagulation Code(s): Z79.01 - 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 etiology (7) Cor pulmonale (chronic) Code(s): I27.81 - COR PULMONALE (CHRONIC) Status: Chronic - Plan PT/OT, social worker assistant, out of bed/ambulate Stable overall -: Continue Bumex -: OOB/ambulate with PT -: Continue Diltiazem 30mg po q6h -: Vitamin K 5mg po daily * AM lab: BMP, Mg++, PT/INR
[2018-08-15] MEDS: Insulin Glargine 20 UNITS in Pre-Filled Syringe 1 EACH SC SCH (21:38)
[2018-08-16 05:14] LABS: Anion Gap 16 mmol/L (10-20); BUN (Urea Nitrogen) 102 mg/dL (8.4-25.7); Calc. Creatinine Clearance 51 mL/min (70-130); Calcium 9.9 mg/dL (7.8-10.44); Carbon Dioxide 34 mmol/L (23-31); Chloride 100 mmol/L (98-107); Estimated GFR-MDRD 38; Glucose 164 mg/dL (83-110); Magnesium 1.8 mg/dL (1.6-2.6); Potassium 3.1 mmol/L (3.5-5.1); Sodium 147 mmol/L (136-145)
[2018-08-16 05:38] LABS: Prothrombin Time 49.9 SEC (12.0-14.7)
[2018-08-16 05:52] LABS: INR-International Normal Ratio 5.5
[2018-08-16] MEDS: Mometasone/Formoterol 120 PUFF INHALER INH SCH (07:04)
[2018-08-16] MEDS: Bumetanide 1 MG TAB PO SCH ×2 (07:43→15:28)
--- NOTE | 2018-08-16 08:23 | PRG ---
DATE OF SERVICE: 08/16/2018 Mr. Owens continues to struggle with breathing and overall comfort issues. PHYSICAL EXAMINATION: VITAL SIGNS: His temperature is 97.7 with no fever overnight, pulse 100, respiratory rate 25, O2 sat uration 95% on 3 liters, blood pressure 101/53. HEENT: Remarkable for bitemporal wasting. NECK: No JVD. LUNGS: Inspiratory crackles both bases. CARDIAC: S1 and S2 regular. ABDOMEN: Soft, nontender. EXTREMITIES: 2+ edema from the knees downward. LABORATORY DATA: White blood cell count 14.9, hemoglobin 13, platelet count 190. INR is 5.5. Sodiu m 147, potassium 3.1, chloride 100, CO2 34, BUN 102, creatinine 1.7, glucose 164. ASSESSMENT: 1. Cor pulmonale. 2. Coagulopathy - likely related to passive liver congestion from severe right-sided heart failure. 3. Underlying chronic obstructive pulmonary disease. RECOMMENDATIONS: I spoke with the patient and his . At the end, I actually pulled his out in the [place]. I told her I did not think Mr. Owens was going to improve significantly and I thought he was at the end of his life. I have recommended to them that they pursue hospice care in order to facilitate transfer back to home. I think they are both comfortable with that idea. I have asked [facility] nursing staff to get palliative care back involved.
[2018-08-16] MEDS: Potassium Chloride 20 MEQ TAB PO SCH (08:44)
[2018-08-16] MEDS: Allopurinol 100 MG TAB PO SCH (08:44)
[2018-08-16] MEDS: Atorvastatin Calcium 20 MG TAB PO SCH (08:44)
[2018-08-16] MEDS: glyBURIDE 5 MG TAB PO SCH ×2 (08:44→16:06)
[2018-08-16] MEDS ORDERED: Potassium Chloride 20 MEQ TAB PO SCH ×2 (10:45→17:00)
[2018-08-16] MEDS: predniSONE 5 MG TAB PO SCH (11:58)
[2018-08-16 12:08] VITALS: BP 114/61; TEMP 98.1
[2018-08-16 14:04] VITALS: BMI 28.0
--- NOTE | 2018-08-16 14:28 | PDOC.PN ---
- Subjective Encounter Start Date: 08/16/18 Encounter Start Time: 14:25 Subjective: f/u for CHF with > 60lb weight loss. Feels tired but better overall. -: INR remains elevated after Vit K dose. States he will return home with -: services. - Objective Resuscitation Status: Resuscitation Status DNR:Do Not Resuscitate MAR Reviewed: Yes Vital Signs & Weight: Vital Signs (12 hours) Temp Pulse Resp BP BP BP Pulse Ox 08/16/18 12:08 98.1 F 103 H 22 H 114/61 92 L 08/16/18 10:16 104 H 22 H 95 08/16/18 08:39 97.5 F L 111 H 21 H 111/59 L 92 L 08/16/18 07:03 100 25 H 95 08/16/18 03:43 97.7 F 113 H 20 101/53 L 92 L 08/16/18 02:27 103 H 18 94 L Weight Admit Weight 274 lb 14.4 oz Weight 212 lb 12.8 oz I&O: 08/15/18 08/16/18 08/17/18 06:59 06:59 06:59 Intake Total 600 1500 Output Total 1950 2450 Balance -1350 -950 Result Diagrams: 08/15/18 04:46 08/16/18 04:29 Additional Labs: Accuchecks 08/16/18 08/16/18 08/15/18 11:04 05:44 20:34 POC Glucose 201 H 156 H 223 H 08/15/18 16:58 POC Glucose 171 H Laboratory Tests 08/11/18 08/12/18 08/12/18 06:58 03:51 12:25 INR 4.7 H* Creatinine 2.22 H 1.90 H 08/13/18 08/13/18 08/14/18 03:52 03:52 03:38 INR 5.9 H* 5.5 H* Creatinine 1.76 H 08/15/18 08/16/18 04:46 04:29 INR 5.9 H* 5.5 H* Creatinine EKG Reviewed by me: Yes (Tele - A-fib in low 100's) Phys Exam - Physical Examination Constitutional: NAD HEENT: PERRLA, sclera anicteric, oral pharynx no lesions Neck: no nodes, no JVD, supple, full ROM few basilar coarse sounds Respiratory: no wheezing, no rales tachycardic, S1, S2 Cardiovascular: no rub, gallop, irregular Gastrointestinal: soft, non-tender, no distention, positive bowel sounds Musculoskeletal: pulses present, edema present Neurological: normal sensation, moves all 4 limbs Psychiatric: A&O x 3 Skin: normal turgor, cap refill <2 seconds Dx/Plan (1) Acute on chronic diastolic ACC/AHA stage C congestive heart failure Code(s): I50.33 - ACUTE ON CHRONIC DIASTOLIC (CONGESTIVE) HEART FAILURE Status : Acute Comment: Continue diuresis with Bumex, serial I/O's, daily weight (2) Supratherapeutic INR Code(s): R79.1 - ABNORMAL COAGULATION PROFILE Status: Acute Comment: Hold anticoagulation, avoid NSAIDs, repeat Vit K 5mg po x 1 today (3) Acute on chronic respiratory failure with hypoxia Code(s): J96.21 - ACUTE AND CHRONIC RESPIRATORY FAILURE WITH HYPOXIA Status: Acute Comment: Improved with diuresis, wean off O2 as clinically indicated (4) Acute worsening of stage 3 chronic kidney disease Code(s): N18.3 - CHRONIC KIDNEY DISEASE, STAGE 3 (MODERATE) Status: Acute Comment: Avoid nephrotoxic meds and limit contrast exposure (5) Anasarca Code(s): R60.1 - GENERALIZED EDEMA Status: Acute Comment: LE edema persists , continue Bumex, compression stockings, ambulate (6) Chronic anticoagulation Code(s): 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 etiology (7) Cor pulmonale (chronic) Code(s): I27.81 - COR PULMONALE (CHRONIC) Status: Chronic - Plan plan discussed w/ family, PT/OT, social services assistant, out of bed/ambulate Stable overall -: Vitamin K 5mg po x 1 today -: Bumex 2mg po BID -: OOB/ambulate with PT -: CM with HH options * AM lab: PT/INR * Likely home in am
[2018-08-16] MEDS ORDERED: Phytonadione 10 MG/ML AMP PO SCH (14:30)
[2018-08-16] MEDS: Ubidecarenone 50 MG CAP PO SCH (15:26)
--- NOTE | 2018-08-16 20:59 | PRG ---
DATE OF SERVICE: 08/16/2018 SUBJECTIVE: The patient seen and examined, very eager to go home. Getting ready to sign against [facility] advice to leave. OBJECTIVE: VITAL SIGNS: Tachycardic, heart rate of 101 , respiratory rate 22, O2 sat 92%. HEENT: Unremarkable. CARDIOVASCULAR: First and heart sounds were heard. RESPIRATORY: Clear to auscultation anteriorly. ABDOMEN: Digestive system revealed an obese abdomen. EXTREMITIES: Showed some peripheral edema, but much improved. LYMPHATICS: No peripheral lymphadenopathy. IMPRESSION: 1. Hypervolemia, status post diuresis. The patient had lost more than 60 pounds since his admission . 2. Acute on chronic kidney disease in the context of diuresis, stabilizing. 3. Possible right-sided heart failure. PLAN: 1. The patient very eager to go home today. Therefore, there will be a very close outpatient follow up with myself and with the primary care physician. 2. The patient to deescalate diuretic treatment. 3. Further management to be dependent on the clinical course. The patient is very coagulopathic wit h INR of 5.1.
--- NOTE | 2018-08-17 04:48 | DIS ---
DATE OF ADMISSION: 08/04/2018 DATE OF DISCHARGE: 08/16/2018 DISCHARGE DIAGNOSES: 1. Acute on chronic stage C diastolic congestive heart failure. 2. Supratherapeutic INR. 3. Acute on chronic hypoxic respiratory failure. 4. Acute on chronic stage 3 kidney disease. 5. Anasarca, improved. 6. Chronic anticoagulation with Coumadin. 7. Cor pulmonale, chronic. 8. Deconditioning. CONSULTATIONS: Dr. Cartagena and Dr. Ziegler with Pulmonology Service. Dr. Moseley and Carlton with Ca rdiology Service. Dr. Moseley with Nephrology Service. PERTINENT LAB AND X-RAY FINDINGS: Potassium ranged between 3.1-5.2, creatinine ranged between 1.30 t o 2.32. Estimated GFR ranged between 29-54. Uric acid level 13.6, phosphorus 3.3. Magnesium level ranged between 1.8-2.4. BNP ranged between 1062 to 1855. TSH 0.31. CBC showed a white blood cell c ount ranging between 6.9 to 14.9. INR ranged between 2.5-5.9. Blood cultures x2 dated 08/04/2018 sh owed no growth at 5 days. Urine culture dated 08/04/2018 showed no growth at [address] of the ab domen and pelvis dated 08/04/2018 showed moderate ascites. A 2D transthoracic echocardiogram dated 0 08/05/2018 showed ejection fraction of 55-60%. Technically limited study. Moderate left atrial enlar gement. Moderate biatrial enlargement. Moderate tricuspid valve regurgitation. Moderately elevated pulmonary artery pressure. HOSPITAL COURSE: Patient was initially admitted with diastolic congestive heart failure exacerbation with associated hypoxic respiratory failure and anasarca. Patient was placed on diuretic therapy an d monitored by the Nephrology and Cardiology Service through throughout his hospital course. Patient was slow to clinically improve with prolonged hospital course. Patient did diurese ultimately with approximately 60+ pound weight loss during the hospital course. A 2D transthoracic echocardiogram sh owed preserved ejection fraction; however, diastolic dysfunction was noted. Patient received oxygen supplementation as well as bronchodilator therapy and general supportive care. Patient was noted wit h severe deconditioning and deemed an appropriate candidate for home health services. Patient and jessi thorpe declined home hospice therapy due to multiple comorbid status, severe deconditioning and advance d age. Patient opted to pursue home health services with [facility] on 08/16/2018. Radha romero decided not to. Patient was also monitored due to chronic Coumadin therapy with serial INR evalua tion showing overall increasing INR with discontinuation of Coumadin. Patient received vitamin K x2 doses; however, INR remained elevated at 5.5-5.9 range at the time of discharge. Patient decided to leave against medical advice opting to return home on 08/16/2018.
[2018-08-17] MEDS ORDERED: Potassium Chloride 20 MEQ TAB PO SCH (08:00)
== END 2018-08-16 17:27 | disposition home health service (06) | DRG 291 ==
LOC: ERS 11:01 → 2NO 14:35 → IMCU/EMU 08-08 19:35 → 2NO 08-14 20:22
PROVIDERS: ADMIT Internal Medicine; ATTEND Internal Medicine
PROC: 5A09457 Assistance with Respiratory Ventilation, 24-96 Consecutive Hours, Continuous Positive Airway Pressure (ICD-10-PCS; principal; 2018-08-08)
DX: I13.0 Hypertensive heart and chronic kidney disease with heart failure and stage 1 through stage 4 chronic kidney disease, or unspecified chronic kidney disease (principal); I50.33 Acute on chronic diastolic (congestive) heart failure; J96.01 Acute respiratory failure with hypoxia; R18.8 Other ascites; N17.9 Acute kidney failure, unspecified; E11.22 Type 2 diabetes mellitus with diabetic chronic kidney disease; I07.1 Rheumatic tricuspid insufficiency; I25.10 Atherosclerotic heart disease of native coronary artery without angina pectoris; I48.0 Paroxysmal atrial fibrillation; E78.5 Hyperlipidemia, unspecified; J44.9 Chronic obstructive pulmonary disease, unspecified; K80.20 Calculus of gallbladder without cholecystitis without obstruction; N18.3 Chronic kidney disease, stage 3 (moderate); E66.9 Obesity, unspecified; Z68.28 Body mass index [BMI] 28.0-28.9, adult; E87.6 Hypokalemia; I27.20 Pulmonary hypertension, unspecified; I27.81 Cor pulmonale (chronic); R79.1 Abnormal coagulation profile; Z79.01 Long term (current) use of anticoagulants; Z79.82 Long term (current) use of aspirin; Z87.891 Personal history of nicotine dependence; Z95.1 Presence of aortocoronary bypass graft; Z83.1 Family history of other infectious and parasitic diseases
CPT/HCPCS: 36415; 36416; 71045; 74176; 80048; 80053; 80076; 81003; 81015; 82553; 82570; 82805; 83605; 83690; 83735; 83880; 84100; 84156; 84443; 84484; 84550; 85025; 85610; 85730; 87040; 87086; 93005; 93010; 93306; 93798; 94640; 94660; 94664; 96365; A4216; G8978-GP-CM; G8979-GP-CK; G8987-GO-CL; G8988-GO-CK; J1100; J1940; J2405; J2920; J3430; J3475; J3490; J7611; J7620

== ENCOUNTER 2018-08-20 12:01 | Emergency (ER) | payer MEDICARE ==
[2018-08-20 15:00] LABS: #Lymphocytes 0.8 thou/uL (1.20-3.40); #Monocytes 0.7 thou/uL (0.11-0.59); #Neutrophils 17.9 thou/uL (1.40-6.50); %Eosinophils 0.2 % (0.0-10.0); %Lymphocytes 3.9 % (21.0-51.0); %Monocytes 3.7 % (0.0-10.0); %Neutrophils 92.3 % (42.0-75.0); Hemoglobin 14.4 g/dL (14.0-18.0); Mean Corpuscular HGB CONC 29.5 g/dL (32.0-36.0); Mean Corpuscular Hemoglobin 25.4 pg (27.0-31.0); Mean Corpuscular Volume 86.1 fL (78.0-98.0); Mean Platelet Volume 8.6 fL (7.4-10.4); Platelet Count 176 thou/uL (130-400); RBC Distribution Width 20.4 % (11.5-14.5); Red Blood Cell (RBC) Count 5.67 mill/uL (4.70-6.10); White Blood Cell (WBC) Count 19.4 thou/uL (4.8-10.8)
[2018-08-20 15:23] LABS: Anisocytosis SLIGHT = 6-15 cells (100X) (0-5/hpf); Hypochromia SLIGHT = 6-15 cells (100X) (0-5/hpf); MDiff Complete? YES; PLT Morphology Comment Appears Adequate
[2018-08-20 15:31] LABS: ALT (SGPT) 36 U/L (8-55); AST (SGOT) 37 U/L (5-34); Albumin 3.7 g/dL (3.4-4.8); Alkaline Phosphatase 109 U/L (40-150); Anion Gap 18 mmol/L (10-20); BUN (Urea Nitrogen) 75 mg/dL (8.4-25.7); Calc. Creatinine Clearance 0 mL/min (70-130); Calcium 10.1 mg/dL (7.8-10.44); Carbon Dioxide 34 mmol/L (23-31); Chloride 109 mmol/L (98-107); Estimated GFR-MDRD 46; Globulin 3.6 g/dL (2.4-3.5); Glucose 219 mg/dL (83-110); Potassium 3.2 mmol/L (3.5-5.1); Protein, Total 7.3 g/dL (5.8-8.1); Sodium 158 mmol/L (136-145)
[2018-08-20 15:34] LABS: CKMB 3.2 ng/mL (0-6.6); Troponin I 0.263 ng/mL (< 0.028)
[2018-08-20 17:04] LABS: Bilirubin Small (Negative); Blood, Urine Negative (Negative); Clarity CLEAR (Clear); Glucose, Urine (Dipstick) Negative (Negative); Leukocyte Negative (Negative); Nitrite Negative (Negative); Protein, Urine (Dipstick) Trace mg/dL (Neg-Trace); Specific Gravity, Urine 1.019 (1.002-1.036); pH, Urine 5.5 (5.0-9.0)
[2018-08-20 18:58] LABS: Lactic Acid 2.1 mmol/L (0.5-2.2)
[2018-08-21 12:23] LABS: Base Excess-Venous 10.9 mmol/L (0 (+/- 2.5)); Bicarbonate (HCO3v) 35.8 mmol/L (1.0-85.0); CO2 Tension (PvCO2) 45.9 mmHg (41.0-51.0); Hemoglobin - Calc 16.3 g/dL (12.0-18.0); O2 Tension (PvO2) 32.6 mmHg (35.0-45.0); vO2 Saturation-calc 67.7 % (94-98)
[2018-08-21 12:24] LABS: Calcium, Ionized 1.09 mmol/L (1.12-1.32); Potassium 3.2 mmol/L (3.4-4.7); T. Carbon Dioxide 37.2 mmol/L (1.0-85.0)
== END 2018-08-20 18:50 | disposition home or self-care (01) ==
LOC: ERS 12:01
DX: I50.9 Heart failure, unspecified (principal); R53.1 Weakness; E78.5 Hyperlipidemia, unspecified; I48.91 Unspecified atrial fibrillation; E11.9 Type 2 diabetes mellitus without complications; Z87.891 Personal history of nicotine dependence
CPT/HCPCS: 36415; 36416; 80053; 81003; 82330; 82435; 82553; 82803; 83605; 83880; 84132; 84295; 84484; 85014; 85025; 93005